=== PATIENT | female | born 1945 | race Caucasian/White ===

== ENCOUNTER → 2017-09-29 16:28 | Outpatient (CLI) | payer MEDICARE, OTHER, SELFPAY ==
[2017-09-29 17:50] LABS: Hematocrit 36.5 % (37-47); Hemoglobin 12.6 g/dl (12.0-15.0); Mean Corp Hgb Conc 34.5 g/gl (32-36); Mean Corpuscular Hgb 31.8 pg (27.0-32.0); Mean Corpuscular Volume 92.2 fL (81-99); Mean Platelet Vol. 10.7 fl (6.2-12.0); Platelet Count 154 K/mm3 (150-450); RBC Distribution Width CV 14.6 % (11.6-14.6); RBC Distribution Width SD 47.7 fl (35.1-43.9); Red Blood Count 3.96 M/mm3 (4.2-5.4); White Blood Count 5.2 K/mm3 (4.4-11.0)
[2017-09-29 17:52] LABS: Scan Indicated on CBC? Y/N NO
[2017-09-29 18:04] LABS: Anion Gap 7 (5-15); BUN 31 mg/dL (7-18); BUN/Creat Ratio 17.8 RATIO (10-20); Calcium,Total 9.6 mg/dL (8.5-10.1); Chloride 103 mmol/L (98-107); Creatinine, Serum 1.74 mg/dL (0.55-1.02); EST Glomerular Filtration Rate 30 mL/min (>60); Est Glom Filt Rate - Afr Amer 37 mL/min (>60); Glucose 130 mg/dL (74-106); Magnesium 1.9 mg/dL (1.6-2.6); Potassium 3.9 mmol/L (3.5-5.1); Sodium Level 142 mmol/L (136-145)
== END ==
PROVIDERS: Family Provider Family Medicine; PCP Family Medicine; Visit Provider Family Medicine
DX: I16.0 Hypertensive urgency (principal); R00.2 Palpitations
CPT/HCPCS: 36415; 80048; 83735; 85027

== ENCOUNTER → 2017-10-06 10:53 | Outpatient (CLI) | payer MEDICARE, OTHER, SELFPAY ==
[2017-10-07 08:08] LABS: Potassium 4.8 mmol/L (3.5-5.1)
== END ==
PROVIDERS: Family Provider Family Medicine; PCP Family Medicine; Visit Provider Family Medicine
DX: N18.9 Chronic kidney disease, unspecified (principal)
CPT/HCPCS: 36415; 84132

== ENCOUNTER → 2017-11-21 14:38 | Outpatient (CLI) | payer MEDICARE, OTHER, SELFPAY ==
[2017-11-21 15:53] LABS: Anion Gap 7 (5-15); BUN 44 mg/dL (7-18); BUN/Creat Ratio 19.9 RATIO (10-20); Calcium,Total 8.9 mg/dL (8.5-10.1); Chloride 104 mmol/L (98-107); Creatinine, Serum 2.21 mg/dL (0.55-1.02); EST Glomerular Filtration Rate 23 mL/min (>60); Est Glom Filt Rate - Afr Amer 28 mL/min (>60); Glucose 216 mg/dL (74-106); Potassium 4.5 mmol/L (3.5-5.1); Sodium Level 140 mmol/L (136-145)
== END ==
PROVIDERS: Family Provider Family Medicine; PCP Family Medicine; Visit Provider Family Medicine
DX: N18.9 Chronic kidney disease, unspecified (principal)
CPT/HCPCS: 36415; 80048

== ENCOUNTER → 2017-11-28 15:19 | Outpatient (CLI) | payer MEDICARE, OTHER, SELFPAY ==
[2017-11-28 17:33] LABS: Anion Gap 5 (5-15); BUN 36 mg/dL (7-18); BUN/Creat Ratio 20.1 RATIO (10-20); Calcium,Total 9.4 mg/dL (8.5-10.1); Chloride 103 mmol/L (98-107); Creatinine, Serum 1.79 mg/dL (0.55-1.02); EST Glomerular Filtration Rate 29 mL/min (>60); Est Glom Filt Rate - Afr Amer 36 mL/min (>60); Glucose 229 mg/dL (74-106); Potassium 4.4 mmol/L (3.5-5.1); Sodium Level 138 mmol/L (136-145)
== END ==
PROVIDERS: Family Provider Family Medicine; PCP Family Medicine; Visit Provider Family Medicine
DX: I10 Essential (primary) hypertension (principal)
CPT/HCPCS: 36415; 80048

== ENCOUNTER → 2017-12-07 11:26 | Outpatient (CLI) | payer MEDICARE, OTHER, SELFPAY ==
[2017-12-07 14:23] LABS: Anion Gap 7 (5-15); BUN 30 mg/dL (7-18); BUN/Creat Ratio 17.3 RATIO (10-20); Calcium,Total 9.4 mg/dL (8.5-10.1); Chloride 104 mmol/L (98-107); Creatinine, Serum 1.73 mg/dL (0.55-1.02); EST Glomerular Filtration Rate 31 mL/min (>60); Est Glom Filt Rate - Afr Amer 37 mL/min (>60); Glucose 176 mg/dL (74-106); Potassium 4.2 mmol/L (3.5-5.1); Sodium Level 141 mmol/L (136-145)
== END ==
PROVIDERS: Family Provider Family Medicine; PCP Family Medicine; Visit Provider Family Medicine
DX: I10 Essential (primary) hypertension (principal)
CPT/HCPCS: 36415; 80048

== ENCOUNTER → 2018-01-02 13:52 | Outpatient (CLI) | payer MEDICARE, OTHER, SELFPAY ==
[2018-01-02 15:47] LABS: Anion Gap 9 (5-15); BUN 25 mg/dL (7-18); BUN/Creat Ratio 17.1 RATIO (10-20); Calcium,Total 9.3 mg/dL (8.5-10.1); Chloride 104 mmol/L (98-107); Creatinine, Serum 1.46 mg/dL (0.55-1.02); EST Glomerular Filtration Rate 37 mL/min (>60); Est Glom Filt Rate - Afr Amer 45 mL/min (>60); Glucose 115 mg/dL (74-106); Potassium 4.1 mmol/L (3.5-5.1); Sodium Level 141 mmol/L (136-145)
== END ==
PROVIDERS: Family Provider Family Medicine; PCP Family Medicine; Visit Provider Family Medicine
DX: I10 Essential (primary) hypertension (principal)
CPT/HCPCS: 36415; 80048

== ENCOUNTER → 2018-05-17 16:50 | Outpatient (CLI) | payer MEDICARE, OTHER, SELFPAY ==
[2018-05-17 17:58] LABS: ALB/GLOB Ratio 0.8 RATIO (0.9-2.4); AST(SGOT) 23 U/L (15-37); Alanine Aminotransfer ALT/SGPT 30 U/L (13-56); Albumin, Serum 3.6 g/dL (3.2-5.0); Alkaline Phosphatase 55 U/L (45-117); Anion Gap 10 (5-15); BUN 36 mg/dL (7-18); BUN/Creat Ratio 19.4 RATIO (10-20); Calcium,Total 9.5 mg/dL (8.5-10.1); Chloride 103 mmol/L (98-107); Creatinine, Serum 1.86 mg/dL (0.55-1.02); EST Glomerular Filtration Rate 28 mL/min (>60); Est Glom Filt Rate - Afr Amer 34 mL/min (>60); Globulin 4.4 g/dL (2.2-4.2); Glucose 200 mg/dL (74-106); Potassium 4.2 mmol/L (3.5-5.1); Sodium Level 140 mmol/L (136-145); Thyroid Stim Hormone (TSH) 0.25 uIU/mL (0.358-3.74)
== END ==
PROVIDERS: Family Provider Family Medicine; PCP Family Medicine; Visit Provider Family Medicine
DX: E11.9 Type 2 diabetes mellitus without complications (principal)
CPT/HCPCS: 36415; 80053; 84443

== ENCOUNTER → 2018-05-26 10:58 | Outpatient (CLI) | payer MEDICARE, OTHER, SELFPAY ==
[2018-05-26 12:56] LABS: Anion Gap 10 (5-15); BUN 26 mg/dL (7-18); BUN/Creat Ratio 16.5 RATIO (10-20); Calcium,Total 9.6 mg/dL (8.5-10.1); Chloride 102 mmol/L (98-107); Creatinine, Serum 1.58 mg/dL (0.55-1.02); EST Glomerular Filtration Rate 34 mL/min (>60); Est Glom Filt Rate - Afr Amer 41 mL/min (>60); Glucose 182 mg/dL (74-106); Potassium 4.3 mmol/L (3.5-5.1); Sodium Level 140 mmol/L (136-145)
== END ==
PROVIDERS: Family Provider Family Medicine; PCP Family Medicine; Visit Provider Family Medicine
DX: N18.9 Chronic kidney disease, unspecified (principal)
CPT/HCPCS: 36415; 80048

== ENCOUNTER → 2018-08-17 12:36 | Outpatient (CLI) | payer MEDICARE, OTHER, SELFPAY ==
[2018-08-17 14:56] LABS: Anion Gap 12 (5-15); BUN 28 mg/dL (7-18); BUN/Creat Ratio 16.3 RATIO (10-20); Calcium,Total 9.1 mg/dL (8.5-10.1); Chloride 105 mmol/L (98-107); Creatinine, Serum 1.72 mg/dL (0.55-1.02); EST Glomerular Filtration Rate 31 mL/min (>60); Est Glom Filt Rate - Afr Amer 37 mL/min (>60); Glucose 284 mg/dL (74-106); Potassium 4.3 mmol/L (3.5-5.1); Sodium Level 142 mmol/L (136-145); T4 Free Direct 1.28 ng/dL (0.76-1.46); Thyroid Stim Hormone (TSH) 0.68 uIU/mL (0.358-3.74)
== END ==
PROVIDERS: Family Provider Family Medicine; PCP Family Medicine; Referring Provider Family Medicine; Visit Provider Family Medicine
DX: E03.9 Hypothyroidism, unspecified (principal); N18.9 Chronic kidney disease, unspecified
CPT/HCPCS: 36415; 80048; 84439; 84443

== ENCOUNTER → 2018-11-21 15:49 | Outpatient (CLI) | payer MEDICARE, OTHER, SELFPAY ==
[2018-11-21 17:48] LABS: Erythrocyte Sedimentation Rate 17 mm/hr (0-30)
[2018-11-21 17:51] LABS: Anion Gap 8 (5-15); BUN 36 mg/dL (7-18); BUN/Creat Ratio 19.9 RATIO (10-20); Calcium,Total 9.1 mg/dL (8.5-10.1); Chloride 104 mmol/L (98-107); Creatinine, Serum 1.81 mg/dL (0.55-1.02); EST Glomerular Filtration Rate 29 mL/min (>60); Est Glom Filt Rate - Afr Amer 35 mL/min (>60); Glucose 121 mg/dL (74-106); Potassium 4.5 mmol/L (3.5-5.1); Sodium Level 141 mmol/L (136-145)
== END ==
PROVIDERS: Family Provider Family Medicine; PCP Family Medicine; Referring Provider Family Medicine; Visit Provider Family Medicine
DX: N18.9 Chronic kidney disease, unspecified (principal); M79.10 Myalgia, unspecified site
CPT/HCPCS: 36415; 80048; 85652

== ENCOUNTER → 2018-12-04 12:03 | Outpatient (CLI) | payer MEDICARE, OTHER, SELFPAY ==
[2018-12-04 14:33] LABS: Anion Gap 5 (5-15); BUN 26 mg/dL (7-18); BUN/Creat Ratio 18.3 RATIO (10-20); Calcium,Total 8.7 mg/dL (8.5-10.1); Chloride 108 mmol/L (98-107); Creatinine, Serum 1.42 mg/dL (0.55-1.02); EST Glomerular Filtration Rate 38 mL/min (>60); Est Glom Filt Rate - Afr Amer 46 mL/min (>60); Glucose 151 mg/dL (74-106); Potassium 4.2 mmol/L (3.5-5.1); Sodium Level 141 mmol/L (136-145)
== END ==
PROVIDERS: Family Provider Family Medicine; PCP Family Medicine; Visit Provider Family Medicine
DX: N18.9 Chronic kidney disease, unspecified (principal)
CPT/HCPCS: 36415; 80048

== ENCOUNTER → 2018-12-12 16:16 | Outpatient (CLI) | payer MEDICARE, OTHER, SELFPAY ==
[2018-12-12 18:21] LABS: Anion Gap 7 (5-15); BUN 35 mg/dL (7-18); BUN/Creat Ratio 18.8 RATIO (10-20); Calcium,Total 8.6 mg/dL (8.5-10.1); Chloride 104 mmol/L (98-107); Creatinine, Serum 1.86 mg/dL (0.55-1.02); EST Glomerular Filtration Rate 28 mL/min (>60); Est Glom Filt Rate - Afr Amer 34 mL/min (>60); Glucose 175 mg/dL (74-106); Potassium 4.7 mmol/L (3.5-5.1); Sodium Level 143 mmol/L (136-145)
== END ==
PROVIDERS: Family Provider Family Medicine; PCP Family Medicine; Referring Provider Family Medicine; Visit Provider Family Medicine
DX: I10 Essential (primary) hypertension (principal)
CPT/HCPCS: 36415; 80048

== ENCOUNTER → 2019-01-01 14:49 | Outpatient (CLI) | payer MEDICARE, OTHER, SELFPAY ==
[2019-01-01 17:48] LABS: Anion Gap 5 (5-15); BUN 24 mg/dL (7-18); BUN/Creat Ratio 16.7 RATIO (10-20); Calcium,Total 9.2 mg/dL (8.5-10.1); Chloride 106 mmol/L (98-107); Creatinine, Serum 1.44 mg/dL (0.55-1.02); EST Glomerular Filtration Rate 38 mL/min (>60); Est Glom Filt Rate - Afr Amer 46 mL/min (>60); Glucose 127 mg/dL (74-106); Potassium 4.5 mmol/L (3.5-5.1); Sodium Level 141 mmol/L (136-145)
== END ==
PROVIDERS: Family Provider Family Medicine; PCP Family Medicine; Visit Provider Family Medicine
DX: I10 Essential (primary) hypertension (principal)
CPT/HCPCS: 80048

== ENCOUNTER → 2019-02-20 15:09 | Outpatient (CLI) | payer MEDICARE, OTHER, SELFPAY ==
[2019-02-20 17:42] LABS: Hematocrit 35.2 % (37-47); Hemoglobin 11.7 g/dl (12.0-15.0); Mean Corp Hgb Conc 33.2 g/gl (32-36); Mean Corpuscular Hgb 29.5 pg (27.0-32.0); Mean Corpuscular Volume 88.7 fL (81-99); Mean Platelet Vol. 11.3 fl (6.2-12.0); Platelet Count 155 K/mm3 (150-450); RBC Distribution Width SD 48.1 fl (35.1-43.9); Red Blood Count 3.97 M/mm3 (4.2-5.4); White Blood Count 4.4 K/mm3 (4.4-11.0)
[2019-02-20 17:44] LABS: Scan Indicated on CBC? Y/N NO
[2019-02-20 18:12] LABS: ALB/GLOB Ratio 0.8 RATIO (0.9-2.4); AST(SGOT) 23 U/L (15-37); Alanine Aminotransfer ALT/SGPT 26 U/L (13-56); Albumin, Serum 3.4 g/dL (3.2-5.0); Alkaline Phosphatase 63 U/L (45-117); Anion Gap 6 (5-15); BUN 35 mg/dL (7-18); Chloride 107 mmol/L (98-107); Creatinine, Serum 1.84 mg/dL (0.55-1.02); EST Glomerular Filtration Rate 28 mL/min (>60); Est Glom Filt Rate - Afr Amer 34 mL/min (>60); Glucose 82 mg/dL (74-106); Potassium 4.8 mmol/L (3.5-5.1); Protein, Total 7.4 g/dL (6.4-8.2); Sodium Level 143 mmol/L (136-145); Thyroid Stim Hormone (TSH) 0.95 uIU/mL (0.358-3.74)
[2019-02-20 18:50] LABS: BNP,B-Type NATRIURETIC PEPTIDE 322.8 pg/mL (0-100)
== END ==
PROVIDERS: Family Provider Family Medicine; PCP Family Medicine; Visit Provider Family Medicine
DX: E03.9 Hypothyroidism, unspecified (principal); R60.0 Localized edema
CPT/HCPCS: 36415; 80053; 83880; 84443; 85027

== ENCOUNTER → 2019-02-26 15:33 | Outpatient (CLI) | payer MEDICARE, OTHER, SELFPAY ==
[2019-02-26 18:05] LABS: Anion Gap 5 (5-15); BUN 35 mg/dL (7-18); BUN/Creat Ratio 21.2 RATIO (10-20); Calcium,Total 8.9 mg/dL (8.5-10.1); Chloride 103 mmol/L (98-107); Creatinine, Serum 1.65 mg/dL (0.55-1.02); EST Glomerular Filtration Rate 32 mL/min (>60); Est Glom Filt Rate - Afr Amer 39 mL/min (>60); Glucose 138 mg/dL (74-106); Potassium 4.5 mmol/L (3.5-5.1); Sodium Level 137 mmol/L (136-145)
== END ==
PROVIDERS: Family Provider Family Medicine; PCP Family Medicine; Visit Provider Family Medicine
DX: N18.9 Chronic kidney disease, unspecified (principal)
CPT/HCPCS: 36415; 80048

== ENCOUNTER → 2019-05-22 15:45 | Outpatient (CLI) | payer MEDICARE, OTHER, SELFPAY ==
[2019-05-22 18:02] LABS: Anion Gap 5 (5-15); BUN 26 mg/dL (7-18); BUN/Creat Ratio 14.5 RATIO (10-20); Calcium,Total 9.2 mg/dL (8.5-10.1); Chloride 108 mmol/L (98-107); Creatinine, Serum 1.79 mg/dL (0.55-1.02); EST Glomerular Filtration Rate 29 mL/min (>60); Est Glom Filt Rate - Afr Amer 35 mL/min (>60); Glucose 193 mg/dL (74-106); Potassium 4.5 mmol/L (3.5-5.1); Sodium Level 140 mmol/L (136-145)
[2019-05-22 18:29] LABS: BNP,B-Type NATRIURETIC PEPTIDE 185.7 pg/mL (0-100)
== END ==
PROVIDERS: Family Provider Family Medicine; PCP Family Medicine; Visit Provider Family Medicine
DX: E11.9 Type 2 diabetes mellitus without complications (principal); R60.0 Localized edema
CPT/HCPCS: 36415; 80048; 83880

== ENCOUNTER → 2019-08-28 15:23 | Outpatient (CLI) | payer MEDICARE, OTHER, SELFPAY ==
[2019-08-28 18:24] LABS: Vitamin D,25 Hydroxy 69.7 ng/mL (29.95-100.01)
[2019-08-28 18:34] LABS: ALB/GLOB Ratio 0.8 RATIO (0.9-2.4); AST(SGOT) 29 U/L (15-37); Alanine Aminotransfer ALT/SGPT 32 U/L (13-56); Albumin, Serum 3.6 g/dL (3.2-5.0); Alkaline Phosphatase 61 U/L (45-117); Anion Gap 4 (5-15); BUN 29 mg/dL (7-18); BUN/Creat Ratio 15.1 RATIO (10-20); Calcium,Total 9.5 mg/dL (8.5-10.1); Chloride 109 mmol/L (98-107); Creatinine, Serum 1.92 mg/dL (0.55-1.02); EST Glomerular Filtration Rate 27 mL/min (>60); Est Glom Filt Rate - Afr Amer 33 mL/min (>60); Globulin 4.5 g/dL (2.2-4.2); Glucose 119 mg/dL (74-106); Iron 93 ug/dL (50-170); Potassium 4.1 mmol/L (3.5-5.1); Protein, Total 8.1 g/dL (6.4-8.2); Sodium Level 142 mmol/L (136-145); T4 Free Direct 1.32 ng/dL (0.76-1.46); Thyroid Stim Hormone (TSH) 0.88 uIU/mL (0.358-3.74)
== END ==
PROVIDERS: Family Provider Family Medicine; PCP Family Medicine; Referring Provider Family Medicine; Visit Provider Family Medicine
DX: I12.9 Hypertensive chronic kidney disease with stage 1 through stage 4 chronic kidney disease, or unspecified chronic kidney disease (principal); N18.9 Chronic kidney disease, unspecified; E03.9 Hypothyroidism, unspecified; E55.9 Vitamin D deficiency, unspecified
CPT/HCPCS: 36415; 80053; 82306; 83540; 84439; 84443

== ENCOUNTER → 2020-06-30 12:03 | Outpatient (CLI) | payer MEDICARE, OTHER, SELFPAY ==
[2020-06-30 15:42] LABS: Hemoglobin 12.9 g/dL (12.0-15.0); Mean Corp Hgb Conc 33.1 g/dL (32-36); Mean Corpuscular Hgb 28.8 pg (27.0-32.0); Mean Corpuscular Volume 87.1 fL (81-99); Platelet Count 186 K/mm3 (150-450); RBC Distribution Width CV 15.5 % (11.6-14.6); RBC Distribution Width SD 49.2 fl (35.1-43.9); Red Blood Count 4.48 M/mm3 (4.2-5.4); White Blood Count 4.6 K/mm3 (4.4-11.0)
[2020-06-30 16:06] LABS: Vitamin D,25 Hydroxy 34.5 ng/mL
[2020-06-30 16:18] LABS: Anion Gap 7 (5-15); BUN 26 mg/dL (7-18); BUN/Creat Ratio 19.1 RATIO (10-20); Calcium,Total 8.8 mg/dL (8.5-10.1); Chloride 104 mmol/L (98-107); Creatinine, Serum 1.36 mg/dL (0.55-1.02); EST Glomerular Filtration Rate 40 mL/min (>60); Est Glom Filt Rate - Afr Amer 49 mL/min (>60); Glucose 211 mg/dL (74-106); Potassium 4.1 mmol/L (3.5-5.1); Sodium Level 139 mmol/L (136-145)
== END ==
LOC: LAB 06-28 15:41 → MTLAB 12:04
PROVIDERS: PCP Family Medicine; Referring Provider Family Medicine; Visit Provider Family Medicine
DX: E11.22 Type 2 diabetes mellitus with diabetic chronic kidney disease (principal); N18.9 Chronic kidney disease, unspecified
CPT/HCPCS: 36415; 80048; 82306; 85027

== ENCOUNTER → 2020-09-29 14:16 | Outpatient (CLI) | payer MEDICARE, OTHER, SELFPAY ==
[2020-09-29 17:58] LABS: ALB/GLOB Ratio 0.8 RATIO (0.9-2.4); AST(SGOT) 33 U/L (15-37); Alanine Aminotransfer ALT/SGPT 30 U/L (13-56); Albumin, Serum 3.5 g/dL (3.2-5.0); Alkaline Phosphatase 63 U/L (45-117); Anion Gap 7 (5-15); BUN 28 mg/dL (7-18); BUN/Creat Ratio 18.9 RATIO (10-20); Calcium,Total 9.2 mg/dL (8.5-10.1); Chloride 103 mmol/L (98-107); Creatinine, Serum 1.48 mg/dL (0.55-1.02); EST Glomerular Filtration Rate 36 mL/min (>60); Est Glom Filt Rate - Afr Amer 44 mL/min (>60); Globulin 4.6 g/dL (2.2-4.2); Glucose 116 mg/dL (74-106); Potassium 3.8 mmol/L (3.5-5.1); Protein, Total 8.1 g/dL (6.4-8.2); Sodium Level 139 mmol/L (136-145); Thyroid Stim Hormone (TSH) 0.49 uIU/mL (0.358-3.74)
[2020-09-29 18:00] LABS: BNP,B-Type NATRIURETIC PEPTIDE 333.9 pg/mL (0-100)
== END ==
PROVIDERS: PCP Family Medicine; Visit Provider Family Medicine
DX: E03.9 Hypothyroidism, unspecified (principal); E11.9 Type 2 diabetes mellitus without complications; R60.0 Localized edema
CPT/HCPCS: 36415; 80053; 83880; 84443

== ENCOUNTER → 2020-10-27 15:25 | Outpatient (CLI) | payer MEDICARE, OTHER, SELFPAY ==
[2020-10-27 18:00] LABS: Anion Gap 6 (5-15); BUN 44 mg/dL (7-18); BUN/Creat Ratio 21.6 RATIO (10-20); Calcium,Total 9.8 mg/dL (8.5-10.1); Chloride 103 mmol/L (98-107); Creatinine, Serum 2.04 mg/dL (0.55-1.02); EST Glomerular Filtration Rate 25 mL/min (>60); Est Glom Filt Rate - Afr Amer 30 mL/min (>60); Glucose 199 mg/dL (74-106); Potassium 4.3 mmol/L (3.5-5.1); Sodium Level 139 mmol/L (136-145)
[2020-10-27 18:04] LABS: BNP,B-Type NATRIURETIC PEPTIDE 167.5 pg/mL (0-100)
== END ==
PROVIDERS: PCP Family Medicine; Visit Provider Family Medicine
DX: I10 Essential (primary) hypertension (principal)
CPT/HCPCS: 36415; 80048; 83880

== ENCOUNTER → 2020-11-04 15:45 | Outpatient (CLI) | payer MEDICARE, OTHER, SELFPAY ==
[2020-11-04 18:41] LABS: Anion Gap 8 (5-15); BUN 41 mg/dL (7-18); BUN/Creat Ratio 20.3 RATIO (10-20); Calcium,Total 9.6 mg/dL (8.5-10.1); Chloride 102 mmol/L (98-107); Creatinine, Serum 2.02 mg/dL (0.55-1.02); EST Glomerular Filtration Rate 25 mL/min (>60); Est Glom Filt Rate - Afr Amer 31 mL/min (>60); Glucose 222 mg/dL (74-106); Potassium 4.4 mmol/L (3.5-5.1); Sodium Level 139 mmol/L (136-145)
== END ==
PROVIDERS: PCP Family Medicine; Visit Provider Family Medicine
DX: N18.9 Chronic kidney disease, unspecified (principal)
CPT/HCPCS: 36415; 80048

== ENCOUNTER → 2020-12-11 08:55 | Outpatient (CLI) | payer MEDICARE, OTHER, SELFPAY ==
--- NOTE | 2020-12-11 08:58 | RDU_ITS ---
Reason For Study: renal insufficiency Right Renal Artery Left Renal Artery Right renal artery proximal Left renal artery proximal PSV/EDV 141.5/22.5 PSV/EDV. 140.9/18.0 . Right renal artery mid 177.5/16.4 Left renal artery mid 149.7/18.0 PSV/EDV. PSV/EDV . Right renal artery distal Left renal artery distal 130.0/18.0 177.5/16.4 PSV/EDV. PSV/EDV. Right Renal Parenchyma Left Renal Parenchyma Upper Pole Medula 49.3/9.8 PSV/EDV. Left upper pole medulla 43.0/9.8 Right upper pole medulla EDR .2 . PSV/EDV . Right upper pole medulla R.I. .8 . Left upper pole medulla EDR .23 . Upper Jake Cortx 31.9/11.4 PSV/EDV. Left upper pole medulla R.I. .77 . Right upper pole cortex EDR .36 . UP Cortex 36.5/6.7 PSV/EDV. Right upper pole cortex R.I. .64 . Left upper pole cortex EDR .18 . Right lower Pole medulla 27.2/11.4 Left upper pole cortex R.I. .82 . PSV/EDV . Left lower Pole medulla 40.4/8.0 Right lower pole medulla EDR .42 . PSV/EDV . Right lower pole medulla R.I. .58 . Left lower pole medulla EDR .2 . Lower Pole Cortex 38.2/9.8 PSV/EDV. Left lower pole medulla R.I. .8 . Right lower pole cortex EDR .26 . Lower Pole Cortx 23.3/5.7 PSV/EDV. Right lower pole cortex R.I. .74 . Left lower pole cortex EDR .25 . Right Renal Hilar Left lower pole cortex R.I. .75 . Right Hilar avg 55.6/6.6 PSV/EDV. Left Renal Hilar Right hilar acceleration time 60 LT Hilar avg 46.3/9.0 PSV/EDV . m/sec. Left hilar acceleration time 70 Right Renal Dimensions m/sec. Right kidney size 10.7 cm . Left Renal Dimensions Right cortical dimension 1.46 cm . Left kidney size 10.7 cm . Left cortical dimension 1.12 cm . Aorta Proximal abdominal aorta 1.46 x 1.65 cm . Proximal abdominal aorta peak systolic velocity is 193.5 cm/sec . Distal abdominal aorta 1.15 x 1.09 cm . Distal abdominal aorta peak systolic velocity is 123.9 cm/sec . Bilateral normal renal veins. Difficult study due to body habitus and bowel gas. VL/Renal Artery Duplex Ultrasound Interpretation Summary Maximal abdominal aortic diameter approximately at 1.46 x 1.65 cm. Velocities a re elevated 293.5 cm/s flow which invalidates renal artery to aortic ratio. Less than 60% stenosis bilateral renal arteries Right renal length 10.7 cm Left renal length 10.7 cm Examination was noted to be difficult secondary to body habitus and bowel gas Ordering Physician: Orion Lacy Performed By: Ar Ellis RVT
== END ==
PROVIDERS: PCP Family Medicine; Referring Provider Family Medicine; Visit Provider Family Medicine
DX: N18.9 Chronic kidney disease, unspecified (principal)
CPT/HCPCS: 93975

== ENCOUNTER → 2020-12-29 15:07 | Outpatient (CLI) | payer MEDICARE, OTHER, SELFPAY ==
[2020-12-29 18:37] LABS: Anion Gap 5 (5-15); BUN 53 mg/dL (7-18); BUN/Creat Ratio 26.9 RATIO (10-20); Calcium,Total 9.1 mg/dL (8.5-10.1); Chloride 108 mmol/L (98-107); Creatinine, Serum 1.97 mg/dL (0.55-1.02); EST Glomerular Filtration Rate 26 mL/min (>60); Est Glom Filt Rate - Afr Amer 32 mL/min (>60); Glucose 147 mg/dL (74-106); Potassium 4.1 mmol/L (3.5-5.1); Sodium Level 142 mmol/L (136-145)
== END ==
PROVIDERS: PCP Family Medicine; Visit Provider Family Medicine
DX: N18.30 Chronic kidney disease, stage 3 unspecified (principal)
CPT/HCPCS: 36415; 80048

== ENCOUNTER → 2021-01-13 15:01 | Outpatient (CLI) | payer MEDICARE, OTHER, SELFPAY ==
[2021-01-13 16:44] LABS: Creatinine, Urine (random) < 13.00 mg/dL (NO RANGE EST.); Microalbumin,Random Urine 45.7 mg/L (NO RANGE EST.)
== END ==
PROVIDERS: PCP Family Medicine; Visit Provider Internal Medicine Nephrology
DX: E11.22 Type 2 diabetes mellitus with diabetic chronic kidney disease (principal)
CPT/HCPCS: 82043; 82570

== ENCOUNTER → 2021-01-16 12:32 | Outpatient (CLI) | payer MEDICARE, OTHER, SELFPAY ==
--- NOTE | 2021-01-16 12:34 | ECHOCS_ITS ---
Reason For Study: SOB Procedure This was a 2D Doppler, Color Flow transthoracic echocardiogram. The study was technically difficult. Contrast injection was performed. Exam performed in department. Left Ventricle Normal LV size. Left ventricular systolic function is normal. The estimated ejection fraction is 65 %. There is evidence of diastolic dysfunction. No regional wall motion abnormalities noted. Right Ventricle Normal RV size. Normal systolic function. Atria The left atrium is severely enlarged. The right atrium is mildly enlarged. No doppler evidence for ASD. Mitral Valve There is moderate to severe mitral annular calcification. Extension of the mitral annular calcification on the base of the posterior mitral valve leaflet. The mitral valve chordae are thickened and/or calcified. Mild-Moderate (1-2+) mitral valve insufficiency. Tricuspid Valve Normal tricuspid valve. Mild tricuspid valve insufficiency. Right ventricular systolic pressure estimated to be 54 mmHg. Aortic Valve Trisinus/trileaflet aortic valve. Mild diffuse aortic valve thickening. Pulmonic Valve The pulmonic valve is not well visualized. Trivial pulmonic valve insufficiency. Great Vessels Normal sized aortic root. Pericardium/Pleural No pericardial effusion. MMode/2D Measurements & Calculations LVIDd: 4.6 cm IVSd: 1.3 cm Ao root diam: 3.2 cm LVIDs: 2.7 cm LVPWd: 1.2 cm LA dimension: 4.8 cm RVDd: 3.4 cm FS: 40.6 % LAV(MOD-bp): 94.6 ml LA A4 area: 25.9 cm2 RA A4 area: 21.3 cm2 LAV(MOD-bp) Indexed: 50.9 ml/m2 LAV(MOD-sp2): 94.6 ml LAV(MOD-sp4): 87.6 ml Time Measurements MV dec time: 0.27 sec Doppler Measurements & Calculations MV E max nima: 142.4 cm/sec Lat Peak E' Nima: 8.5 cm/sec MV V2 max: 217.6 cm/sec MV A max nima: 165.0 cm/sec E/E' lat: 16.7 MV max P.9 mmHg MV E/A: 0.86 MV V2 mean: 139.2 cm/sec MV mean P.9 mmHg MV V2 VTI: 68.2 cm MV P1/2t max nima: 204.2 cm/sec Ao V2 max: 146.6 cm/sec LV V1 max: 142.9 cm/sec MV P1/2t: 86.2 msec Ao max P.6 mmHg LV V1 max P.2 mmHg MV dec slope: 693.4 cm/sec2 MVA(P1/2t): 2.6 cm2 PA V2 max: 110.7 cm/sec TR max nima: 337.5 cm/sec TR max P.6 mmHg ECHO/Echo Complete W/ Contrast Interpretation Summary The study was technically difficult. Contrast injection was performed. Left ventricular systolic function is normal. The estimated ejection fraction is 65 %. The left atrium is severely enlarged. The right atrium is mildly enlarged. There is moderate to severe mitral annular calcification. Extension of the mitral annular calcification on the base of the posterior mitr al valve leaflet. The mitral valve chordae are thickened and/or calcified. Mild-Moderate (1-2+) mitral valve insufficiency. Mild tricuspid valve insufficiency. Mild diffuse aortic valve thickening. Trivial pulmonic valve insufficiency. Right ventricular systolic pressure estimated to be 54 mmHg c/w pulmonary hyper tension. There is evidence of diastolic dysfunction. Ordering Physician: Marlene Olivares Referring Physician: Jose Lacy Performed By: Vitaliy Fong RCS
== END ==
PROVIDERS: PCP Family Medicine; Referring Provider Internal Medicine Nephrology; Visit Provider Internal Medicine Nephrology
DX: R06.02 Shortness of breath (principal); N17.9 Acute kidney failure, unspecified
CPT/HCPCS: 93306; Q9957; A4216; C8929; J3490

== ENCOUNTER → 2021-03-09 13:24 | Outpatient (CLI) | payer MEDICARE, OTHER, SELFPAY ==
[2021-03-09 14:20] LABS: Microalbumin,Random Urine 47.4 mg/L (NO RANGE EST.)
[2021-03-09 14:27] LABS: BNP,B-Type NATRIURETIC PEPTIDE 695.4 pg/mL (0-100)
[2021-03-09 14:37] LABS: Albumin, Serum 3.7 g/dL (3.2-5.0); BUN 36 mg/dL (7-18); BUN/Creat Ratio 21.6 RATIO (10-20); Calcium,Total 9.1 mg/dL (8.5-10.1); Chloride 107 mmol/L (98-107); Cholesterol 154 mg/dL (200); Creatinine, Serum 1.67 mg/dL (0.55-1.02); EST Glomerular Filtration Rate 32 mL/min (>60); Est Glom Filt Rate - Afr Amer 38 mL/min (>60); Glucose 118 mg/dL (74-106); High Density Lipoprotein 52 mg/dL; Phosphorus 3.3 mg/dL (2.5-4.9); Potassium 3.8 mmol/L (3.5-5.1); Sodium Level 140 mmol/L (136-145); Thyroid Stim Hormone (TSH) 0.57 uIU/mL (0.358-3.74); Triglycerides 51 mg/dL; Very Low Density Lipoprotein 10 mg/dL (5-40)
== END ==
PROVIDERS: PCP Family Medicine; Referring Provider Internal Medicine Nephrology; Visit Provider Internal Medicine Nephrology
DX: N17.9 Acute kidney failure, unspecified (principal); E03.9 Hypothyroidism, unspecified; R60.0 Localized edema; E11.59 Type 2 diabetes mellitus with other circulatory complications
CPT/HCPCS: 80061; 80069; 82043; 83880; 84443

== ENCOUNTER → 2021-05-26 14:37 | Outpatient (CLI) | payer MEDICARE, OTHER, SELFPAY ==
[2021-05-26 15:45] LABS: Albumin, Serum 3.4 g/dL (3.2-5.0); BUN 35 mg/dL (7-18); BUN/Creat Ratio 19.6 RATIO (10-20); Calcium,Total 9.6 mg/dL (8.5-10.1); Chloride 101 mmol/L (98-107); Creatinine, Serum 1.79 mg/dL (0.55-1.02); EST Glomerular Filtration Rate 29 mL/min (>60); Est Glom Filt Rate - Afr Amer 35 mL/min (>60); Glucose 220 mg/dL (74-106); Phosphorus 3.7 mg/dL (2.5-4.9); Potassium 3.8 mmol/L (3.5-5.1); Sodium Level 140 mmol/L (136-145)
== END ==
PROVIDERS: PCP Family Medicine; Referring Provider Internal Medicine Nephrology; Visit Provider Internal Medicine Nephrology
DX: N18.32 Chronic kidney disease, stage 3b (principal)
CPT/HCPCS: 36415; 80069

== ENCOUNTER 2021-09-11 14:47 | Outpatient (CLI) | payer MEDICARE, OTHER, SELFPAY ==
[2021-09-11 16:42] LABS: Albumin, Serum 3.1 g/dL (3.2-5.0); BUN 37 mg/dL (7-18); BUN/Creat Ratio 22.7 RATIO (10-20); Calcium,Total 9.2 mg/dL (8.5-10.1); Chloride 112 mmol/L (98-107); Creatinine, Serum 1.63 mg/dL (0.55-1.02); EST Glomerular Filtration Rate 32 mL/min (>60); Est Glom Filt Rate - Afr Amer 39 mL/min (>60); Glucose 73 mg/dL (74-106); Phosphorus 3.6 mg/dL (2.5-4.9); Potassium 4.5 mmol/L (3.5-5.1); Sodium Level 142 mmol/L (136-145)
[2021-09-11 17:21] LABS: Protein:Creat Ratio 288 mg/g CRE (0-200)
== END 2021-09-11 23:59 | disposition short-term general hospital (02) ==
LOC: LAB 14:48
PROVIDERS: PCP Family Medicine; Visit Provider Internal Medicine Nephrology
DX: I10 Essential (primary) hypertension (principal); N17.9 Acute kidney failure, unspecified; E11.22 Type 2 diabetes mellitus with diabetic chronic kidney disease; N18.9 Chronic kidney disease, unspecified
CPT/HCPCS: 36415; 80069; 82570; 84156

== ENCOUNTER → 2021-12-16 | Outpatient (CLI) | payer MEDICARE, OTHER, SELFPAY ==
[2021-12-16 15:46] LABS: Hematocrit 36.8 % (37-47); Hemoglobin 11.9 g/dL (12.0-15.0); Mean Corp Hgb Conc 32.3 g/dL (32-36); Mean Corpuscular Hgb 28.6 pg (27.0-32.0); Mean Corpuscular Volume 88.5 fL (81-99); Platelet Count 114 K/mm3 (150-450); RBC Distribution Width CV 17.9 % (11.6-14.6); Red Blood Count 4.16 M/mm3 (4.2-5.4); White Blood Count 4.1 K/mm3 (4.4-11.0)
[2021-12-16 16:10] LABS: Vitamin D,25 Hydroxy 81.7 ng/mL
[2021-12-16 16:16] LABS: Albumin, Serum 3.6 g/dL (3.2-5.0); BNP,B-Type NATRIURETIC PEPTIDE 636.8 pg/mL (0-100); BUN 42 mg/dL (7-18); BUN/Creat Ratio 23.9 RATIO (10-20); Calcium,Total 9.4 mg/dL (8.5-10.1); Chloride 106 mmol/L (98-107); Cholesterol 120 mg/dL (200); Creatinine, Serum 1.76 mg/dL (0.55-1.02); EST Glomerular Filtration Rate 30 mL/min (>60); Est Glom Filt Rate - Afr Amer 36 mL/min (>60); Glucose 85 mg/dL (74-106); High Density Lipoprotein 49 mg/dL; Phosphorus 3.8 mg/dL (2.5-4.9); Potassium 4.1 mmol/L (3.5-5.1); Sodium Level 140 mmol/L (136-145); Thyroid Stim Hormone (TSH) 0.53 uIU/mL (0.358-3.74); Triglycerides 60 mg/dL; Very Low Density Lipoprotein 12 mg/dL (5-40)
== END | disposition home or self-care (01) ==
LOC: POLAB3 13:54
PROVIDERS: PCP Family Medicine; Visit Provider Internal Medicine Nephrology
DX: E11.22 Type 2 diabetes mellitus with diabetic chronic kidney disease (principal); I27.20 Pulmonary hypertension, unspecified; N18.32 Chronic kidney disease, stage 3b; E55.9 Vitamin D deficiency, unspecified
CPT/HCPCS: 80061; 80069; 82306; 83880; 84443; 85027

== ENCOUNTER 2022-04-01 17:41 | Inpatient (IN) | payer MEDICARE, OTHER, SELFPAY ==
[2022-04-01] VITALS (10 sets, daily range): BP systolic 159–226; BP diastolic 50–105; PULSE 60–94; RESP 16–30; TEMP 36.3–37.6; O2SAT 96–98; BMI 38.0; BMI 38.3
--- NOTE | 2022-04-01 18:03 | EKG12_ITS ---
Test Reason : SOB Blood Pressure : / mmHG Vent. Rate : 094 BPM Atrial Rate : 000 BPM P-R Int : 000 ms QRS Dur : 088 ms QT Int : 342 ms P-R-T Axes : 000 042 009 degrees QTc Int : 427 ms Atrial fibrillation Nonspecific ST abnormality Abnormal ECG Confirmed by GIL IBRAHIM, MARYAN ([id number]), news assignment editor KATYA MEAD ([id number]) on 04/02/2022 9:49:09 AM Referred By: ÁNGEL Confirmed By:MARYAN CORDERO MD
--- NOTE | 2022-04-01 18:10 | EDS_ITS ---
HPI History of Present Illness Chief Complaint: Shortness of Breath Informant: patient and family Onset/Context/Timing Onset: Today Context: gradual Timing: Continuous Current Severity: Moderate Maximum Severity: Moderate Worsened by: Nothing Relieved by: Nothing Associated Symptoms cough; Negative for fever, chills or sweats Chest Pain: Positive for Dull and Aching Narrative Narrative: 76-year-old female history of CHF, chronic kidney disease Mobitz type II and third-degree heart block with pending possible pacemaker, diabetes and today had new onset A. fib. Basically has not felt well last several days short of breath for the last 3 days. Today was in the over short and damage clerk office diagnosed with A. fib and was sent to the emergency department. Last night she did have some left- sided chest discomfort. PE Risk Factors: Negative for Cancer, OCP + Smoking + > 35, Prior DVT or PE, Recent immobilization, Recent surgery or Recent travel Prior similar symptoms: No Recent Illness/Hospitalization: No PFSH PFSH Medical History (HFpEF) heart failure with preserved ejection fraction Calcification of mitral valve Chronic kidney disease (CKD) Essential hypertension Hypothyroidism Mobitz type 2 second degree atrioventricular block Obesity Secondary pulmonary arterial hypertension Type 2 diabetes mellitus Home Medications levothyroxine 100 mcg tablet (Levoxyl) 100 mcg PO DAILY 09/18/13 [History Last Taken 03/31/22] calcium carb 300 mg-D3 800 unit-mag ox 25 mg-certified flex endoscope reprocessor 0.5 mg-jodi-Zn tablet (Caltrate + D3 Plus Minerals) 1 tab PO BID 03/22/22 [History Last Taken 04/01/22] hydralazine 50 mg tablet 50 mg PO TID 03/22/22 [History Last Taken 04/01/22] insulin glargine 100 unit/mL (3 mL) subcutaneous pen (Lantus Solostar U-100 Insulin) 45 unit subcut DAILY 03/22/22 [History Last Taken 04/01/22] acetaminophen 650 mg tablet,extended release (Tylenol 8 Hour) 1,300 mg PO Q12H QHS 03/24/22 [History Last Taken 03/31/22] diphenhydramine HCl 25 mg capsule (Benadryl) 25 mg PO QHS PRN Allergy Symptoms 03/24/22 [History Last Taken Unknown] jjhxdjly-hpbtcts-lonp-lutein tablet 1 tab PO DAILY 03/24/22 [History Last Taken 04/01/22] amlodipine 10 mg tablet 10 mg PO DAILY BP 04/01/22 [History Last Taken 04/01/22] apixaban 2.5 mg tablet (Eliquis) 2.5 mg PO BID #60 tabs 04/01/22 [Rx Last Taken Unknown] furosemide 40 mg tablet 40 mg PO BID This is a dose increase #180 tabs 04/01/22 [Rx Last Taken 04/01/22] lisinopril 20 mg tablet 20 mg PO DAILY this is a dose increase #90 tabs 04/01/22 [Rx Last Taken 04/01/22] Allergy/AdvReac Type Severity Reaction Status Date / Time adhesive tape Allergy Other Verified 04/01/22 17:46 duloxetine Allergy PT UNSURE Verified 04/01/22 17:59 OF REACTION erythromycin base Allergy Rash Verified 04/01/22 17:49 gabapentin Allergy Swelling Verified 04/01/22 17:49 pioglitazone [From Actos] Allergy PT UNSURE Verified 04/01/22 17:49 OF REACTION codeine AdvReac Other Verified 04/01/22 17:49 Surgical History History of total hip arthroplasty Hx of appendectomy Hx of tubal ligation Social History Smoking Status: Former smoker ROS ROS ED ROS Narrative Shortness of breath. Review of Systems ROS Unobtainable: Denies due to encephalopathy Constitutional Constitutional ED: Denies chills or fever(s) Eyes Eyes: Denies blurry vision ENT ENT ED: Denies ear pain Cardiovascular Cardiovascular: Reports chest pain Respiratory/Chest Respiratory/Chest: Reports cough and dyspnea Gastrointestinal Gastrointestinal: Denies abdominal pain, constipation, diarrhea, melena, nausea or vomiting Genitourinary Genitourinary ED: Denies dysuria or hematuria Musculoskeletal Musculoskeletal: Denies arthralgias Integumentary Denies abscess Neurologic Neurologic: Denies headache(s) Psychiatric Psychiatric: Denies anxiety Endocrine Endocrinology: Denies cold intolerance Hematologic/Lymphatic Hematologic/Lymphatic: Denies easy bleeding Allergic/Immunologic Allergic/Immunologic ED: Denies mouth swelling or tongue swelling EXAM Physical Exam Narrative Exam Narrative: 68-year-old female tender 9.6 clinically she feels warmer than not. Blood pressure 226/56 pulse ox 96% on 4 L hypoxic without oxygen. H EENT exam unremarkable. Neck nontender no JVD. No lymphadenopathy. Lungs clear to auscultation. Heart irregularly irregular rate of 94 systolic 3/6 ejection murmur. Abdomen soft nontender. Moving all 4 extremities. 1-2+ pitting edema both lower extremities chronic. Neurologically she is awake and alert. Answering questions following commands. Const Vital Signs: 04/01/22 17:50 04/01/22 17:44 04/01/22 18:11 Temperature 99.6 F H Temperature Source Temporal Pulse Rate 94 Respiratory Rate 30 H Respiratory Effort Respiratory Depth Respiratory Pattern Blood Pressure 226/56 H 217/56 H Blood Pressure Mean 112 109 Pulse Ox 96 97 Oxygen Delivery Method Nasal Cannula Nasal Cannula Oxygen Flow Rate (L/min) 4 4 04/01/22 19:08 04/01/22 19:08 04/01/22 20:25 Temperature Temperature Source Pulse Rate 90 60 Respiratory Rate 18 18 Respiratory Effort Normal Respiratory Depth Shallow Respiratory Pattern Tachypnea Blood Pressure 187/105 H 172/53 H Blood Pressure Mean 132 92 Pulse Ox 97 97 Oxygen Delivery Method Nasal Cannula Nasal Cannula Nasal Cannula Oxygen Flow Rate (L/min) 4 4 4 04/01/22 21:06 Temperature Temperature Source Pulse Rate 76 Respiratory Rate 20 H Respiratory Effort Respiratory Depth Respiratory Pattern Blood Pressure 163/50 H Blood Pressure Mean 87 Pulse Ox 97 Oxygen Delivery Method Nasal Cannula Oxygen Flow Rate (L/min) 4 Positive well nourished, well developed and obese; Negative for cachectic or unkempt General Appearance ED: well developed; Negative for unkempt, cachectic, NAD or pallor Nutritional Appearance: obese; Negative for cachectic HEENT Reports moist mucous membranes atraumatic; Negative for trauma Eyes PERRL and EOMs intact bilaterally General Eye ED: Negative for pale conjunctiva or scleral icterus Neck no lymphadenopathy, supple, no meningeal signs and no JVD General: Negative for tenderness Lymph Lymphatic: Negative for other Resp No normal respiratory effort and No clear to auscultation bilaterally Resp Narrative: Increased respiratory rate. Rales on exam. Auscultation: rales; Negative for rhonchi or wheezes Cardio regular rate; Negative for regular rhythm Cardio Narrative: A. fib rate about 94. 3/6 to 4/6 systolic ejection murmur. GI non-tender, non-distended and no masses Auscultation: normoactive bowel sounds Palpation: soft; Negative for tender or guarding Back/Spine no CVA tenderness Extremity Negative for normal to inspection Extremity Narrative: Bilateral lower extremity chronic edema 1+ pitting bilaterally. General Extremety ED: Yes edema General Extremity: edema Neuro oriented x3 Sensorium / Orientation: alert, oriented to person, oriented to place and oriented to time; Negative for orientation impaired, confused, lethargic or stuporous Speech: speech normal Sensory Exam: sensory level loss detected Motor Exam: strength 5/5 throughout Psych mental status grossly normal Appearance: Negative for unkempt Attitude: No agitated Mood & Affect: Negative for depressed, anxious or tearful Thought Process: normal thought process Skin no wounds General Skin Exam: Negative for jaundice or pallor Lesions: no lesions Rashes: no rashes MDM MDM MDM Narrative Medical decision making narrative: 76-year-old female short of breath hypoxic new onset A. fib. She also has a low-grade temperature nine 9.6 this could be A. fib with failure versus infectious etiology versus other causes. She undergo a cardiac work-up including blood cultures also BNP and COVID test. Repeat exam patient is doing much better at 10:10 PM. Family is in the room family is a OB nurse. Patient was started on IV Rocephin. Currently she is resting comfortably clinically looks improved. Her pulse ox is in the mid 90s. Currently she is in a sinus rhythm in the 60s. She is currently out of A. fib. Lab Data Attestation: I reviewed the patient's lab results. Lab results narrative: BUN ofCBC shows a white count 9.2. H&H 10.9 and 33.7. Platelets 131. Electrolytes show a sodium 139 gap of 8 creatinine 1.89 consistent with dehydration. Glucose of 209. BNP is elevated at 597. Troponins elevated 56. Lactic acid is normal at 1.7. Urinalysis shows 50-100 white cells with no nitrites and rare bacteria. A culture will be sent. Labs: Laboratory Results - last 24 hr 04/01/22 04/01/22 04/01/22 17:35 17:35 17:35 WBC 9.2 RBC 3.71 L Hgb 10.9 L Hct 33.7 L MCV 90.8 MCH 29.4 MCHC 32.3 RDW Std Deviation 65.1 H RDW Coeff of Nael 19.4 H Plt Count 131 L MPV TNP Immature Gran % (Auto) 1.000 H Neut % (Auto) 83.1 H Lymph % (Auto) 5.8 L Ada % (Auto) 9.2 Eos % (Auto) 0.2 Baso % (Auto) 0.7 Absolute Neuts (auto) 7.6 Absolute Lymphs (auto) 0.53 L Nucleated RBC % 0 Differential Comment SEE COMMENT Platelet Estimate SLT DEC RBC Morphology N CHROM Anisocytosis 1+ Macrocytosis RARE Ovalocytes RARE Sodium 139 Potassium 4.2 Chloride 107 Carbon Dioxide 24.0 Anion Gap 8 BUN 55 H Creatinine 1.89 H Estim Creat Clear Calc 18.51 Est GFR (MDRD) Af Amer 33 L Est GFR (MDRD) Non-Af 27 L BUN/Creatinine Ratio 29.1 H Glucose 209 H Lactic Acid Calcium 10.0 Troponin I High Sens 56 H B-Natriuretic Peptide 597.3 H Urine Color Urine Clarity Urine pH Ur Specific Cushing Urine Protein Urine Glucose (UA) Urine Ketones Urine Occult Blood Urine Nitrite Urine Bilirubin Urine Urobilinogen Ur Leukocyte Esterase Urine RBC Urine WBC Ur Squamous Epith Cells Urine Bacteria Urine Mucus 04/01/22 04/01/22 04/01/22 18:15 18:55 20:15 WBC RBC Hgb Hct MCV MCH MCHC RDW Std Deviation RDW Coeff of Nael Plt Count MPV Immature Gran % (Auto) Neut % (Auto) Lymph % (Auto) Ada % (Auto) Eos % (Auto) Baso % (Auto) Absolute Neuts (auto) Absolute Lymphs (auto) Nucleated RBC % Differential Comment Platelet Estimate RBC Morphology Anisocytosis Macrocytosis Ovalocytes Sodium Potassium Chloride Carbon Dioxide Anion Gap BUN Creatinine Estim Creat Clear Calc Est GFR (MDRD) Af Amer Est GFR (MDRD) Non-Af BUN/Creatinine Ratio Glucose Lactic Acid 1.7 Calcium Troponin I High Sens 97 H B-Natriuretic Peptide Urine Color Straw Urine Clarity Sl. Cloudy Urine pH 6.0 Ur Specific [place] 1.020 Urine Protein 100 H Urine Glucose (UA) Normal Urine Ketones Negative Urine Occult Blood 10 H Urine Nitrite Negative Urine Bilirubin Negative Urine Urobilinogen Normal Ur Leukocyte Esterase 500 H Urine RBC 0-5 SEEN Urine WBC 50-100 SEEN Ur Squamous Epith Cells 0-5 SEEN Urine Bacteria RARE Urine Mucus 0 SEEN Radiography Chest X-Ray - ED: 1 View and Read by ED Physician Diagnostic Testing: Clinical Impression(s) from Imaging Studies Chest X-Ray 04/01/22 18:17 IMPRESSION: There is bilateral infiltrate. Electronically Signed: Hossein Mcgrath MD at 18:39 EDT Reading Location ID and State: [facility]– [place] / [place] , Service support , Rhythm Strip Rhythm Strip: A-fib Rate: 94 Ectopy: None EKG Initial EKG: Attestation: I personally reviewed and interpreted this EKG as follows: Interpretation: No Acute Injury Pattern and Atrial Fibrillation Comments: Atrial fibrillation rate of 94 no acute signs of CO or ischemia. Discharge Plan Triage Chief Complaint: Shortness of Breath ED Provider: Coy Nolen Dx/Rx/DC Orders Clinical Impression: A-fib, Chronic kidney disease (CKD), Type 2 diabetes mellitus, CHF (congestive heart failure), Hypoxia, Acute UTI Prescriptions: No Action objvtdyh-jwnrszx-vxqu-lutein Tablet 1 tab PO DAILY acetaminophen [Tylenol 8 Hour] 650 mg tablet extended release 1,300 mg PO Q12H diphenhydramine HCl [Benadryl] 25 mg capsule 25 mg PO QHS PRN (Reason: Allergy Symptoms) levothyroxine [Levoxyl] 100 MCG tablet 100 mcg PO DAILY Label Comments: THYROID amlodipine 10 mg tablet 10 mg PO DAILY insulin glargine [Lantus Solostar U-100 Insulin] 100 unit/mL (3 mL) insulin pen 45 unit subcut DAILY Label Comments: DIABETES-long acting insulin hydralazine 50 mg tablet 50 mg PO TID Caltrate + D3 Plus Minerals 300 mg-800 unit -25 mg-0.5 mg tablet 1 tab PO BID furosemide 40 mg tablet 40 mg PO BID Qty: 180 3RF lisinopril 20 mg tablet 20 mg PO DAILY Qty: 90 3RF Label Comments: 10 MG TAB 04/01/22 PT INCREASED TO [address] APPT ON 04/01/22 Eliquis 2.5 mg tablet 2.5 mg PO BID Qty: 60 11RF Primary Care Provider: Orion Lacy Referrals: Orion Lacy MD [Primary Care Provider] - Disposition Disposition: Acute Care Hospital [facility]
[2022-04-01 18:17] LABS: Absolute Lymphocyte Count 0.53 X10^3/uL (0.83-4.51); Absolute Neutrophil Count 7.6 X10^3/uL (2.0-7.7); Basophil# 0.06 X10^3/uL; Basophil% 0.7 % (0-1); Eosinophil# 0.02 X10^3/uL; Eosinophils% 0.2 % (0-5); Hematocrit 33.7 % (37-47); Hemoglobin 10.9 g/dL (12.0-15.0); Lymphocyte # 0.53 X10^3/ul (0.83-4.51); Lymphocyte % 5.8 % (19-41); Mean Corp Hgb Conc 32.3 g/dL (32-36); Mean Corpuscular Hgb 29.4 pg (27.0-32.0); Mean Corpuscular Volume 90.8 fL (81-99); Monocyte# 0.85 X10^3/uL; Monocyte% 9.2 % (0-10); NRBC Flagged by Analyzer 0 % (0-5); Neutrophil # 7.64 X10^3/uL (2.7-7.7); Neutrophil % 83.1 % (47-70); POSITIVE DIFFERENTIAL YES; POSITIVE MORPHOLOGY YES; Platelet Count 131 K/mm3 (150-450); RBC Distribution Width CV 19.4 % (11.6-14.6); RBC Distribution Width SD 65.1 fl (35.1-43.9); Red Blood Count 3.71 M/mm3 (4.2-5.4); White Blood Count 9.2 K/mm3 (4.4-11.0)
--- NOTE | 2022-04-01 18:17 | RAD_ITS ---
STUDY: X-RAY CHEST REASON FOR EXAM: Female, 76 years old. SOB / SOA chest pain TECHNIQUE: XR Chest 1 View COMPARISON: 09/05/2013 FINDINGS: There is bilateral infiltrate. Normal size heart. Metallic clips along the left hilus suggesting prior surgery. Normal visualized pulmonary arteries. There is atherosclerotic calcification of the aortic arch with tortuosity. There are diffuse degenerative changes of the visualized thoracic spine. There is degenerative osteoarthritis of the bilateral shoulders. There is no demonstrated abnormality of the visualized soft tissue structures of the upper abdomen. RAD/Chest 1 View (Portable) IMPRESSION: There is bilateral infiltrate. Electronically Signed: Hossein Mcgrath MD at 18:39 EDT ,
[2022-04-01 18:18] LABS: Differential Indicated SCAN CRITERIA MET
[2022-04-01 18:33] LABS: Anion Gap 8 (5-15); BUN 55 mg/dL (7-18); BUN/Creat Ratio 29.1 RATIO (10-20); Chloride 107 mmol/L (98-107); Creatinine, Serum 1.89 mg/dL (0.55-1.02); EST Glomerular Filtration Rate 27 mL/min (>60); Est Glom Filt Rate - Afr Amer 33 mL/min (>60); Estimated Creatinine Clearance 18.51 ml/min; Glucose 209 mg/dL (74-106); Potassium 4.2 mmol/L (3.5-5.1); Sodium Level 139 mmol/L (136-145); Troponin-I HS (w/2H Reflex) 56 pg/mL (3.0-54.0)
[2022-04-01 18:41] LABS: Anisocytosis 1+; Macrocytosis RARE; Platelet Estimate SLT DEC (ADEQ); Red Cell Morphology N CHROM NORMAL (NORM C&C)
[2022-04-01 18:42] LABS: Ovalocyte RARE
[2022-04-01 18:43] LABS: Lactic Acid 1.7 mmol/L (0.4-1.9)
[2022-04-01 18:47] LABS: BNP,B-Type NATRIURETIC PEPTIDE 597.3 pg/mL (0-100)
[2022-04-01 19:01] LABS: Mucous, Urine 0 SEEN /hpf (<or=2+)
[2022-04-01] MEDS: Acetaminophen 500 MG Tablet 1000 MG PO (19:05)
[2022-04-01 19:06] LABS: Color, Urine Straw (Yellow); Glucose, Dipstick Normal (Normal); Ketone-Dipstick Negative (Negative); Leukocyte Esterase-Dipstick 500 /ul (Negative); Nitrite-Dipstick Negative (Negative); Occult Blood-Urine 10 /ul (Negative); Protein-Dipstick 100 mg/dl (Negative); Urine Bilirubin Dipstick Negative (Negative); Urine Clarity Sl. Cloudy (Clear); Urine Urobilinogen Normal (Normal)
[2022-04-01 19:24] LABS: White Blood Cells 50-100 SEEN /hpf (0-5)
[2022-04-01 19:25] LABS: Bacteria RARE /hpf (None Seen); Red Blood Cells-Urine 0-5 SEEN /hpf (0-5); Squamous Epithelial Cells - UA 0-5 SEEN /hpf (5-10)
[2022-04-01 20:10] LABS: Reflex Troponin-HS? (from REC) Y
[2022-04-01 20:44] LABS: Troponin-I HS 97 pg/mL (3.0-54.0)
--- NOTE | 2022-04-01 22:26 | HP.PCM.HOS_ITS ---
[facility] - General General Date of Admission: 04/01/22 Date of Service: 04/01/22 Chief Complaint: Shortness of breath HPI Narrative MIROSLAVA OSWALD, is a 76 F with a significant history of heart failure with preserved ejection fraction who presents to the emergency department via squad for shortness of breath. Patient reports progressively worsening shortness of breath for 3 days. On the day of presentation patient went to her reservations sales agent office(Dr. Olivares's office) for a routine blood work. Also because 10 days prior to presentation patient was in complete heart block she went to her chicken hatchery helper (Dr. Palomino's) on the same day of presentation. EKG at chicken hatchery helper office showed new onset atrial fibrillation. Also patient was hypoxic with oxygen saturation of 88 to 90%. Her medications were changed. When patient went home she even got more short of breath. At baseline patient sleeps in a recliner or couch because of back issues. She denies paroxysmal nocturnal dyspnea. She reports new swelling in her bilateral hands and increased swelling of her bilateral lower extremity which is above her baseline. She denies any change in her urinary habits. [facility] Medical History (HFpEF) heart failure with preserved ejection fraction Calcification of mitral valve Chronic kidney disease (CKD) Essential hypertension Hypothyroidism Mobitz type 2 second degree atrioventricular block Obesity Secondary pulmonary arterial hypertension Type 2 diabetes mellitus Home Medications levothyroxine 100 mcg tablet (Levoxyl) 100 mcg PO DAILY 09/18/13 [History Last Taken 03/31/22] calcium carb 300 mg-D3 800 unit-mag ox 25 mg-copy director 0.5 mg-jodi-Zn tablet (Caltrate + D3 Plus Minerals) 1 tab PO BID 03/22/22 [History Last Taken 04/01/22] hydralazine 50 mg tablet 50 mg PO TID 03/22/22 [History Last Taken 04/01/22] insulin glargine 100 unit/mL (3 mL) subcutaneous pen (Lantus Solostar U-100 I nsulin) 45 unit subcut DAILY 03/22/22 [History Last Taken 04/01/22] acetaminophen 650 mg tablet,extended release (Tylenol 8 Hour) 1,300 mg PO Q12H QHS 03/24/22 [History Last Taken 03/31/22] diphenhydramine HCl 25 mg capsule (Benadryl) 25 mg PO QHS PRN Allergy Symptoms 03/24/22 [History Last Taken Unknown] evvafmzb-lnqjmut-euvy-lutein tablet 1 tab PO DAILY 03/24/22 [History Last Taken 04/01/22] amlodipine 10 mg tablet 10 mg PO DAILY BP 04/01/22 [History Last Taken 04/01/22] apixaban 2.5 mg tablet (Eliquis) 2.5 mg PO BID #60 tabs 04/01/22 [Rx Last Taken Unknown] furosemide 40 mg tablet 40 mg PO BID This is a dose increase #180 tabs 04/01/22 [Rx Last Taken 04/01/22] lisinopril 20 mg tablet 20 mg PO DAILY this is a dose increase #90 tabs 04/01/22 [Rx Last Taken 04/01/22] Allergy/AdvReac Type Severity Reaction Status Date / Time adhesive tape Allergy Other Verified 04/01/22 17:46 duloxetine Allergy PT UNSURE Verified 04/01/22 17:59 OF REACTION erythromycin base Allergy Rash Verified 04/01/22 17:49 gabapentin Allergy Swelling Verified 04/01/22 17:49 pioglitazone [From Actos] Allergy PT UNSURE Verified 04/01/22 17:49 OF REACTION codeine AdvReac Other Verified 04/01/22 17:49 Surgical History History of total hip arthroplasty Hx of appendectomy Hx of tubal ligation Social History Smoking Status: Former smoker ROS ROS Narrative Pertinent positives and pertinent negatives as noted in HPI. All other systems were reviewed and are negative. Vital Signs Vital Signs Vital Signs: 04/01/22 17:50 04/01/22 17:44 04/01/22 18:11 Temperature 99.6 F H Temperature Source Temporal Pulse Rate 94 Respiratory Rate 30 H Respiratory Effort Respiratory Depth Respiratory Pattern Blood Pressure 226/56 H 217/56 H Blood Pressure Mean 112 109 Pulse Ox 96 97 Oxygen Delivery Method Nasal Cannula Nasal Cannula Oxygen Flow Rate (L/min) 4 4 04/01/22 19:08 04/01/22 19:08 04/01/22 20:25 Temperature Temperature Source Pulse Rate 90 60 Respiratory Rate 18 18 Respiratory Effort Normal Respiratory Depth Shallow Respiratory Pattern Tachypnea Blood Pressure 187/105 H 172/53 H Blood Pressure Mean 132 92 Pulse Ox 97 97 Oxygen Delivery Method Nasal Cannula Nasal Cannula Nasal Cannula Oxygen Flow Rate (L/min) 4 4 4 04/01/22 21:06 04/01/22 22:17 Temperature Temperature Source Pulse Rate 76 68 Respiratory Rate 20 H 16 Respiratory Effort Respiratory Depth Respiratory Pattern Blood Pressure 163/50 H 159/57 H Blood Pressure Mean 87 91 Pulse Ox 97 97 Oxygen Delivery Method Nasal Cannula Nasal Cannula Oxygen Flow Rate (L/min) 4 4 Weight Weight: 91.3 kg Body Mass Index (BMI) 38.0 Physical Exam Narrative Physical exam: General: Well-nourished, well-developed. Head: Normocephalic, atraumatic, no tenderness Eyes: Vision is grossly intact. EOMI ENT, no trauma, moist mucous membranes, no rhinorrhea Neck: Nontender, full range of motion CVS: Irregularly irregular rate and rhythm. Respiratory : clear to auscultation bilaterally, chest wall nontender, no wheezing Abdomen: Soft, nontender, nondistended, normal bowel sounds, no masses : Deferred Back: Nontender, no CVA tenderness, no midline spinal tenderness, deformities, step-offs Extremities: Edema bilateral hands. Edema bilateral legs with bullous at the medial side of her left leg. No cyanosis. Skin: Normal color, no trauma, abrasions Neuro: Alert, oriented, cranial nerves II through XII grossly intact. Psychiatry: Normal mood. Normal affect. Not depressed. Not anxious. Results Lab / Micro Data Result Diagrams: 04/01/22 17:35 04/01/22 17:35 Labs: Laboratory Results - last 24 hr 04/01/22 17:35: WBC 9.2, RBC 3.71 L, Hgb 10.9 L, Hct 33.7 L, MCV 90.8, MCH 29.4, MCHC 32.3, RDW Std Deviation 65.1 H, RDW Coeff of Nael 19.4 H, Plt Count 131 L, MPV TNP, Immature Gran % (Auto) 1.000 H, Neut % (Auto) 83.1 H, Lymph % (Auto) 5.8 L, [place] % (Auto) 9.2, Eos % (Auto) 0.2, Baso % (Auto) 0.7, Absolute Neuts (auto) 7.6, Absolute Lymphs (auto) 0.53 L, Nucleated RBC % 0, Differential Comment SEE COMMENT, Platelet Estimate SLT DEC, RBC Morphology N CHROM, Anisocytosis 1+, Macrocytosis RARE, Ovalocytes RARE 04/01/22 17:35: Sodium 139, Potassium 4.2, Chloride 107, Carbon Dioxide 24.0, Anion Gap 8, BUN 55 H, Creatinine 1.89 H, Estim Creat Clear Calc 18.51, Est GFR (MDRD) Af Amer 33 L, Est GFR (MDRD) Non-Af 27 L, BUN/Creatinine Ratio 29.1 H, Glucose 209 H, Calcium 10.0, Troponin I High Sens 56 H 04/01/22 17:35: B-Natriuretic Peptide 597.3 H 04/01/22 18:15: Lactic Acid 1.7 04/01/22 18:55: Urine Color Straw, Urine Clarity Sl. Cloudy, Urine pH 6.0, Ur S pecific [place] 1.020, Urine Protein 100 H, Urine Glucose (UA) Normal, Urine Ketones Negative, Urine Occult Blood 10 H, Urine Nitrite Negative, Urine Bili doran Negative, Urine Urobilinogen Normal, Ur Leukocyte Esterase 500 H, Urine RBC 0-5 SEEN, Urine WBC 50-100 SEEN, Ur Squamous Epith Cells 0-5 SEEN, Urine Bacteria RARE, Urine Mucus 0 SEEN 04/01/22 20:15: Troponin I High Sens 97 H Micro: Microbiology 04/01/22 18:17 Nasal Secretion SARS-CoV-2 Antigen (Rapid) - Final Rhythm Strip Rhythm Strip: A-fib Rate: 94 Ectopy: None Radiology Impression Chest X-Ray 04/01/22 18:17 IMPRESSION: There is bilateral infiltrate. Electronically Signed: Hossein Mcgrath MD at 18:39 EDT , Assessment & Plan Assessment/Plan (1) (HFpEF) heart failure with preserved ejection fraction: (2) A-fib: (3) Type 2 diabetes mellitus: (4) Chronic kidney disease (CKD): (5) UTI (urinary tract infection): (6) Elevated troponin: PLAN: Plan Acute Exacerbation of heart failure with preserved ejection fraction Place on monitored bed on PCU Weight on admission to the floor; and then daily Strict I&O's CXR was visualized and independently interpreted. I agree with radiologist interpretation of bilateral infiltrates. Emergency department labs reviewed showed BNP of 597.3 Lasix IVP ordered. Echocardiogram on 01/16/21 showed estimated ejection fraction of 65% with evidence of diastolic dysfunction; mild to moderate mitral valve insufficiency; mild tricuspid valve insufficiency; right ventricular systolic pressure was estimated to be 54 mmHg. Mild diffuse aortic valve thickening. Trivial pulmonary valve insufficiency. Transthoracic echocardiogram to evaluate left ventricular wall motion and systolic function ordered Titrate diuretics and heart failure/blood pressure medications with blood pressure. Kerlix roll and samantha wrap to bilateral lower extremities Fluid restriction of 1500 mls daily Cardiac and diabetic diet Reports that previously she had leg cramps with Lasix. Potassium supplementation ordered. Check magnesium level Hypertensive Emergency SBP max 202. Heart failure Amlodipine; Lisinopril and po hydralazine continued. PRN Hydralazine IV ordered. Nitroglycerin paste ordered New Onset Afib Rate controlled. Prescribed Eliquis on same day of presentation but did not start taking. Eliquis ordered. UTI Denies any urinary symptoms but with low-grade fever ceftriaxone was started at the emergency department and continued. Follow urine culture. CKD Stage 3b Likely secondary to hypertensive nephrosclerosis and diabetes mellitus. Stable. Elevated troponin Likely demand ischemia. Trended. Type II Diabetes Patient with hyperglycemia on presentation Basal insulin continued Monitor Accu-Cheks Correction scale insulin ordered. DVT Prophylaxis: Eliquis for Afib as above Charges/Coding Visit Charges Inpatient E&M: 16821 Init Hosp L3
[2022-04-01] MEDS: Ceftriaxone 1 GM/50 ML BAG IV (22:30)
[2022-04-01] MEDS: Furosemide 40 MG/4 ML Vial IV (23:03)
--- NOTE | 2022-04-01 23:28 | ECHOD_ITS ---
Reason For Study: SOB Procedure This was a 2D Doppler, Color Flow transthoracic echocardiogram. Exam performed portable in patient room. Left Ventricle Normal left ventricle. The estimated ejection fraction is 60-65 %. Right Ventricle Normal right ventricle. Normal systolic function. Atria The left atrium is severely enlarged. The right atrium is mildly enlarged. Mitral Valve There is severe mitral annular calcification. with Extension of MACto the posterior mitral valve leaflet. Mild-Moderate (1-2+) eccentric mitral valve insufficiency. Tricuspid Valve Normal tricuspid valve. Mild tricuspid valve insufficiency. Aortic Valve Mild diffuse aortic valve thickening. Pulmonic Valve The pulmonic valve is not well visualized. Great Vessels Normal aortic root. Pericardium/Pleural No pericardial effusion. MMode/2D Measurements & Calculations LVIDd: 5.2 cm IVSd: 1.2 cm LVOT diam: 1.8 cm LVIDs: 2.9 cm LVPWd: 1.1 cm LVOT area: 2.5 cm2 RVDd: 3.2 cm FS: 42.9 % Ao root diam: 3.1 cm LAV(MOD-bp): 88.7 ml LA A4 area: 25.2 cm2 LAV(MOD-bp) Indexed: 47.4 ml/m2 LAV(MOD-sp2): 103.6 ml LAV(MOD-sp4): 73.7 ml LA dimension(2D): 4.5 cm RA A4 area: 20.1 cm2 Time Measurements MV dec time: 0.35 sec Doppler Measurements & Calculations MV E max nima: 190.0 cm/sec Lat Peak E' Nmia: 10.3 cm/sec Med Peak E' Nima: 6.7 cm/sec MV A max nima: 93.1 cm/sec E/E' lat: 18.4 E/E' med: 28.3 MV E/A: 2.0 MV V2 max: 270.4 cm/sec MV P1/2t max nima: 285.7 cm/sec Ao V2 max: 218.9 cm/sec MV max P.3 mmHg MV P1/2t: 103.0 msec Ao max P.2 mmHg MV V2 mean: 125.3 cm/sec MV dec slope: 812.4 cm/sec2 Ao V2 mean: 169.0 cm/sec MV mean P.3 mmHg Ao mean P.3 mmHg MV V2 VTI: 92.4 cm MVA(P1/2t): 2.1 cm2 Ao V2 VTI: 55.7 cm MVA(VTI): 1.2 cm2 YOVANA(I,D): 2.0 cm2 YOVANA(V,D): 2.1 cm2 LV V1 max: 185.3 cm/sec SV(LVOT): 109.8 ml PA V2 max: 116.3 cm/sec LV V1 max P.7 mmHg LV V1 mean P.8 mmHg LV V1 mean: 134.1 cm/sec LV V1 VTI: 43.9 cm TR max nima: 329.4 cm/sec TR max P.4 mmHg ECHO/Echo Complete Interpretation Summary The estimated ejection fraction is 60-65 %. with Extension of MACto the posterior mitral valve leaflet Mild - Moderate MR Mild TR No channnnge fro previous echo 03/18/2021 Ordering Physician: Diomedes Glover Referring Physician: Jose Lacy Performed By: Leann Merino, INDER, RVT
[2022-04-02] VITALS (23 sets, daily range): BP systolic 157–202; BP diastolic 47–70; PULSE 43–72; RESP 18; TEMP 36.4–36.8; O2SAT 92–100
[2022-04-02 00:13] LABS: Troponin-I HS 109 pg/mL (3.0-54.0)
[2022-04-02 00:26] LABS: Bedside Glucose 178 mg/dL (74-106)
[2022-04-02] MEDS: 0.9% Saline Lock 10 ML Syringe IV ×4 (00:38→17:54)
[2022-04-02] MEDS: Nitroglycerin Oint 1 INCH PACKET TD ×2 (00:39→06:47)
[2022-04-02] MEDS: hydrALAZINE 20 MG/ML Vial 5 MG IV (03:42)
[2022-04-02 06:43] LABS: Absolute Lymphocyte Count 0.62 X10^3/uL (0.83-4.51); Absolute Neutrophil Count 4.2 X10^3/uL (2.0-7.7); Basophil# 0.04 X10^3/uL; Basophil% 0.7 % (0-1); Eosinophil# 0.07 X10^3/uL; Eosinophils% 1.3 % (0-5); Hematocrit 27.6 % (37-47); Lymphocyte # 0.62 X10^3/ul (0.83-4.51); Lymphocyte % 11.3 % (19-41); Mean Corp Hgb Conc 32.6 g/dL (32-36); Mean Corpuscular Hgb 29.3 pg (27.0-32.0); Mean Corpuscular Volume 89.9 fL (81-99); Mean Platelet Vol. 11.2 fl (6.2-12.0); Monocyte# 0.59 X10^3/uL; Monocyte% 10.7 % (0-10); NRBC Flagged by Analyzer 0 % (0-5); Neutrophil # 4.15 X10^3/uL (2.7-7.7); Neutrophil % 75.5 % (47-70); Platelet Count 110 K/mm3 (150-450); RBC Distribution Width CV 19.2 % (11.6-14.6); RBC Distribution Width SD 63.9 fl (35.1-43.9); Red Blood Count 3.07 M/mm3 (4.2-5.4); White Blood Count 5.5 K/mm3 (4.4-11.0)
[2022-04-02] MEDS: Senna/Docusate Sodium 1 Tablet 2 TABLET PO (06:48)
[2022-04-02] MEDS: Levothyroxine 100 MCG Tablet PO (06:48)
[2022-04-02] MEDS: Acetaminophen 500 MG Tablet 1000 MG PO ×3 (07:00→20:47)
[2022-04-02 07:13] LABS: Anion Gap 4 (5-15); BUN 52 mg/dL (7-18); BUN/Creat Ratio 29.5 RATIO (10-20); Calcium,Total 9.2 mg/dL (8.5-10.1); Chloride 108 mmol/L (98-107); Creatinine, Serum 1.76 mg/dL (0.55-1.02); EST Glomerular Filtration Rate 30 mL/min (>60); Est Glom Filt Rate - Afr Amer 36 mL/min (>60); Estimated Creatinine Clearance 18.92 ml/min; Glucose 144 mg/dL (74-106); Magnesium 2.3 mg/dL (1.6-2.6); Potassium 3.9 mmol/L (3.5-5.1); Sodium Level 140 mmol/L (136-145)
[2022-04-02 07:21] LABS: Bedside Glucose 123 mg/dL (74-106)
--- NOTE | 2022-04-02 08:58 | RAD_ITS ---
STUDY: X-RAY CHEST REASON FOR EXAM: Female, 76 years old. chf TECHNIQUE: AP and lateral views of the chest. COMPARISON: Comparison is made with prior study dated 04/01/2022. FINDINGS: EKG electrodes are seen. Mild residual vascular congestion. Bibasilar pulmonary infiltrates which have progressed as compared to prior study. Blunting of both costophrenic angles. Normal size heart. Surgical clips are seen in the left hilar region. Normal visualized pulmonary arteries. Normal visualized aortic arch and descending thoracic aorta. There are diffuse degenerative changes of the visualized thoracic spine. Normal visualized ribs, clavicles, and shoulders. There is no demonstrated abnormality of the visualized soft tissue structures of the upper abdomen. RAD/Chest PA and Lateral IMPRESSION: Progressive bibasilar pulmonary infiltrates superimposed on mild degree of CHF. Electronically Signed: Tae Martin MD at 11:03 EDT ,
[2022-04-02] MEDS: hydrALAZINE 50 MG Tablet PO ×3 (10:43→16:29)
[2022-04-02] MEDS: Calcium Carb/Vitamin D 1 TABLET Tablet PO ×2 (10:44→16:30)
[2022-04-02] MEDS: APIXABAN 2.5 MG TABLET PO ×2 (10:44→20:47)
[2022-04-02] MEDS: Potassium Chloride Oral Tablet 10 MEQ PO (10:44)
[2022-04-02] MEDS: Multivitamins,Ther W-Minerals Tablet 1 TABLET PO (10:44)
[2022-04-02] MEDS: Lisinopril 20 MG Tablet PO ×2 (10:45→20:48)
[2022-04-02] MEDS: amLODIPine 10 MG Tablet PO (10:45)
[2022-04-02] MEDS: Furosemide 40 MG/4 ML Vial IV ×2 (10:45→17:54)
[2022-04-02] MEDS: Insulin Glargine-YFGN 100 UNIT/ML Pen 45 UNIT SC (10:48)
--- NOTE | 2022-04-02 11:55 | CASEMGMT ---
LIU COLE assessment: Face to Face with patient for initial transition planning/care coordination assessment. LIU COLE introduced self and role at [facility], pt voices understanding and consents to assessment. Pt is sitting up in bed in no distress on room air. Pt is A/Ox4 and answers all questions appropriately. Pt's family is at bedside during assessment.? Care providers, pharmacy,?and demographics verified. ? Presentation: Pt w/ recent med changes for 3rd degree heart block, in afib, also w/ SOB Admitting dx: Acute on Chronic HF PCP: Beck is working on new PCP Specialists: remington Olivares; Georgette cardio Preferred Pharmacy: [facility] Insurance: MCR A/B, MMO Prescription Benefit:? [employer] Living Will/HPOA: Pt has LW/HPOA and is aware that they not on file at [facility]. Pt states her daughter, Jaclyn Osullivan, is HPOA. LNOK: Jaclyn Osullivan, daughter/HPOA Living Arrangements: Pt lives with daughter, Jaclyn, who is also an UROLOGIST PHYSICIAN and works tubing machine tender. Pt states they live in 2 story home and her bedroom is on 2nd floor. Pt states they are looking into a stair lift for pt. Pt is independent with ADL's. Transportation: Pt daughter drives or uses [employer] transit and states no transportation concerns. DME/HHC: Pt has the following DME: quad cane, walker, and shower chair. Pt states no need for any further DME. Pt states has had HHC in the past but has not been to SNF. Pt states no concerns with going home at time of discharge. Pt is retired. Pt does not smoke cigarettes or drink ETOH. Pt states no further concerns/needs. CM to follow for any further discharge planning/needs. Advised pt to ask for CM if any further questions/concerns/needs arise, voices understanding. Pt Goal: Home ? Plan[place]
[2022-04-02] MEDS: Insulin Lispro 100 UNIT/ML INSULN.PEN SC ×2 (12:30→20:48)
[2022-04-02 13:15] LABS: Bedside Glucose 170 mg/dL (74-106)
--- NOTE | 2022-04-02 13:44 | CASEMGMT ---
NOAH spoke with patient and 2 of her daughters. NOAH introduced self and role at [facility]. SW let patient know her Healthcare Power of Audit Clerks Supervisor and Healthcare Living Will are not on file at [facility]. NOAH requested family bring in a copy when able. Lucia Suh MSW LIZZIE
--- NOTE | 2022-04-02 14:56 | PN.HOSP_ITS ---
Subjective Subjective Patient seen and examined today, her echocardiogram today showed a normal ejection fraction with mild to moderate mitral valve insufficiency, left atrium was severely enlarged. Patient is now on room air, she states she still feels weak, she is not being seen by physical therapy. Objective Data Objective Data Vital Signs: Vital Signs Temp Pulse Resp BP Pulse Ox O2 Del Method O2 Flow Rate 98.3 F 62 18 164/54 H 94 Room Air 2 04/02/22 12:30 04/02/22 12:30 04/02/22 12:30 04/02/22 12:30 04/02/22 12:30 04/02/22 12:30 04/02/22 04:55 Oxygen Flow Rate (L/min) 2 Oxygen Delivery Method Room Air Weight: 89 kg Body Mass Index (BMI) 38.3 Intake & Output: Intake and Output for Last 24 Hours 03/31/22 04/01/22 04/02/22 23:59 23:59 23:59 Intake Total 50 / 50 480 / 480 Output Total 550 / 550 1350 / 1350 Balance -500 / -500 -870 / -870 Lab / Micro Data Result Diagrams: 04/02/22 06:00 04/02/22 06:00 Labs: Laboratory Results - last 24 hr 04/01/22 17:35: WBC 9.2, RBC 3.71 L, Hgb 10.9 L, Hct 33.7 L, MCV 90.8, MCH 29.4, MCHC 32.3, RDW Std Deviation 65.1 H, RDW Coeff of Nael 19.4 H, Plt Count 131 L, MPV TNP, Immature Gran % (Auto) 1.000 H, Neut % (Auto) 83.1 H, Lymph % (Auto) 5.8 L, [place] % (Auto) 9.2, Eos % (Auto) 0.2, Baso % (Auto) 0.7, Absolute Neuts (auto) 7.6, Absolute Lymphs (auto) 0.53 L, Nucleated RBC % 0, Differential Comment SEE COMMENT, Platelet Estimate SLT DEC, RBC Morphology N CHROM, Anisocytosis 1+, Macrocytosis RARE, Ovalocytes RARE 04/01/22 17:35: Sodium 139, Potassium 4.2, Chloride 107, Carbon Dioxide 24.0, Anion Gap 8, BUN 55 H, Creatinine 1.89 H, Estim Creat Clear Calc 18.51, Est GFR (MDRD) Af Amer 33 L, Est GFR (MDRD) Non-Af 27 L, BUN/Creatinine Ratio 29.1 H, Glucose 209 H, Calcium 10.0, Troponin I High Sens 56 H 04/01/22 17:35: B-Natriuretic Peptide 597.3 H 04/01/22 18:15: Lactic Acid 1.7 04/01/22 18:55: Urine Color Straw, Urine Clarity Sl. Cloudy, Urine pH 6.0, Ur Specific [place] 1.020, Urine Protein 100 H, Urine Glucose (UA) Normal, Urine Ketones Negative, Urine Occult Blood 10 H, Urine Nitrite Negative, Urine Bilirubin Negative, Urine Urobilinogen Normal, Ur Leukocyte Esterase 500 H, Urine RBC 0-5 SEEN, Urine WBC 50-100 SEEN, Ur Squamous Epith Cells 0-5 SEEN, Urine Bacteria RARE, Urine Mucus 0 SEEN 04/01/22 20:15: Troponin I High Sens 97 H 04/01/22 23:46: Troponin I High Sens 109 H 04/02/22 00:04: POC Glucose 178 H 04/02/22 06:00: WBC 5.5, RBC 3.07 L, Hgb 9.0 L, Hct 27.6 L, MCV 89.9, MCH 29.3, MCHC 32.6, RDW Std Deviation 63.9 H, RDW Coeff of Nael 19.2 H, Plt Count 110 L, MPV 11.2, Immature Gran % (Auto) 0.500, Neut % (Auto) 75.5 H, Lymph % (Auto) 11.3 L, [place] % (Auto) 10.7 H, Eos % (Auto) 1.3, Baso % (Auto) 0.7, Absolute Neuts (auto) 4.2, Absolute Lymphs (auto) 0.62 L, Nucleated RBC % 0 04/02/22 06:00: Sodium 140, Potassium 3.9, Chloride 108 H, Carbon Dioxide 28.0, Anion Gap 4 L, BUN 52 H, Creatinine 1.76 H, Estim Creat Clear Calc 18.92, Est GFR (MDRD) Af Amer 36 L, Est GFR (MDRD) Non-Af 30 L, BUN/Creatinine Ratio 29.5 H , Glucose 144 H, Calcium 9.2, Magnesium 2.3 04/02/22 06:41: POC Glucose 123 H 04/02/22 12:22: POC Glucose 170 H Micro: Microbiology 04/01/22 18:55 Urine Catheter - Roche Urine Culture - Preliminary Culture exhibits no growth. 04/01/22 18:17 Nasal Secretion SARS-CoV-2 Antigen (Rapid) - Final Radiography Diagnostic Testing: Radiology Impression Chest X-Ray 04/01/22 18:17 IMPRESSION: There is bilateral infiltrate. Electronically Signed: Hossein Mcgrath MD at 18:39 EDT , Echocardiogram 04/01/22 23:28 Interpretation Summary The estimated ejection fraction is 60-65 %. with Extension of MACto the posterior mitral valve leaflet Mild - Moderate MR Mild TR No channnnge fro previous echo 03/18/2021 Ordering Physician: Diomedes Glover Referring Physician: Jose Lacy Performed By: Leann Merino, INDER, RVT Chest X-Ray 04/02/22 08:58 IMPRESSION: Progressive bibasilar pulmonary infiltrates superimposed on mild degree of CHF. Electronically Signed: Tae Martin MD at 11:03 EDT , Rhythm Strip Rhythm Strip: A-fib Rate: 94 Ectopy: None Physical Exam Const alert, oriented x3, no apparent distress and healthy appearing General Appearance: cooperative, well kempt and well developed Orientation / Consciousness: awake, oriented to person, oriented to place and oriented to time HEENT normocephalic, head/scalp atraumatic and moist oral mucous membranes Eyes PERRL, EOMs intact bilaterally and conjunctivae normal Neck supple, no JVD, thyroid normal and no carotid bruits General: trachea midline Resp normal respiratory effort, no retractions, no use of accessory muscles and clear to auscultation bilaterally Auscultation: Negative for rales, rhonchi or wheezes Cardio S1 normal heart sound, S2 normal heart sound, no rub and no gallops Cardio Narrative: Heart rate and rhythm is irregular, 2/6 systolic murmur is noted at the apex and right sternal border GI normal to inspection, nondistended, normoactive bowel sounds, soft to palpation, non-tender and non-distended Extremity normal to inspection and no clubbing, cyanosis or edema Skin no rashes or lesions noted General Skin Exam: no breakdown Neuro oriented x3, CN's II-XII intact bilaterally, moves all extremities, no focal motor deficits and no sensory deficits noted Sensorium / Orientation: awake and alert Speech: speech normal Psych affect normal Assessment & Plan Assessment/Plan (1) CHF (congestive heart failure): PLAN: Plan 1. Acute on chronic diastolic congestive heart failure-patient will remain on IV Lasix #2 hypoxia secondary to #1-patient is currently on room air #3 chronic atrial fibrillation-patient is on close but is on no rate control medications #4 pyuria-patient's urine culture exhibits no growth, I will stop her Rocephin #5 hypertensive emergency-patient's blood pressure at this time is 164/54, I will stop her Nitropaste #6 chronic anemia-etiology unclear, I will order iron studies on the patient #7 debility-I will have PT and OT see the patient #8 type 2 diabetes-patient's blood sugars will be monitored, sliding scale insulin will be used if needed Charges/Coding Visit Charges Inpatient E&M: 76834 [facility] Hosp L3
[2022-04-02 15:33] LABS: Anion Gap 6 (5-15); BUN 55 mg/dL (7-18); BUN/Creat Ratio 30.6 RATIO (10-20); Calcium,Total 9.2 mg/dL (8.5-10.1); Chloride 107 mmol/L (98-107); EST Glomerular Filtration Rate 29 mL/min (>60); Est Glom Filt Rate - Afr Amer 35 mL/min (>60); Glucose 171 mg/dL (74-106); Potassium 4.2 mmol/L (3.5-5.1); Sodium Level 139 mmol/L (136-145)
[2022-04-02 15:51] LABS: Iron 27 ug/dL (50-170); Iron Binding Capacity,Total 223 ug/dL (250-450); PERCENT IRON SATURATION 12.1 % (15.0-55.0)
[2022-04-02] MEDS: Glucerna Shake 120 ML LIQUID PO (16:28)
[2022-04-02 17:16] LABS: Bedside Glucose 117 mg/dL (74-106)
[2022-04-02 22:51] LABS: Bedside Glucose 156 mg/dL (74-106)
[2022-04-03] VITALS (10 sets, daily range): BP systolic 151–195; BP diastolic 50–62; PULSE 42–63; RESP 18; TEMP 36.4–36.6; O2SAT 94–97
[2022-04-03] MEDS: hydrALAZINE 20 MG/ML Vial 5 MG IV (00:26)
[2022-04-03] MEDS: 0.9% Saline Lock 10 ML Syringe IV ×2 (00:30→08:46)
[2022-04-03] MEDS: traMADol 50 MG Tablet PO (01:08)
[2022-04-03] MEDS: Levothyroxine 100 MCG Tablet PO (05:33)
[2022-04-03] MEDS: Acetaminophen 500 MG Tablet 1000 MG PO (05:33)
[2022-04-03 07:20] LABS: Bedside Glucose 83 mg/dL (74-106)
[2022-04-03] MEDS: hydrALAZINE 50 MG Tablet PO (08:40)
[2022-04-03] MEDS: APIXABAN 2.5 MG TABLET PO (08:40)
[2022-04-03] MEDS: Lisinopril 20 MG Tablet PO (08:41)
[2022-04-03] MEDS: Calcium Carb/Vitamin D 1 TABLET Tablet PO (08:41)
[2022-04-03] MEDS: amLODIPine 10 MG Tablet PO (08:41)
[2022-04-03] MEDS: Multivitamins,Ther W-Minerals Tablet 1 TABLET PO (08:42)
[2022-04-03] MEDS: Potassium Chloride Oral Tablet 20 MEQ PO (08:42)
[2022-04-03] MEDS: Furosemide 40 MG/4 ML Vial IV (08:43)
[2022-04-03] MEDS: Insulin Glargine-YFGN 100 UNIT/ML Pen 45 UNIT SC (08:49)
[2022-04-03] MEDS: Glucerna Shake 120 ML LIQUID PO (08:51)
--- NOTE | 2022-04-03 10:51 | PCM.DC.SUM ---
Providers Date of Admission: 04/01/22 Date of Discharge: 04/03/22 Primary Care Physician: Dr. Orion Lacy MD Reason For Visit: ACUTE ON CHRONIC HEART FAILURE WITH PRESERVED EF Diagnosis Discharge Diagnosis (1) CHF (congestive heart failure): Status: Acute Code(s): I50.9 - Heart failure, unspecified Medications at Discharge Home Medications levothyroxine 100 mcg tablet (Levoxyl) 100 mcg PO DAILY 09/18/13 calcium carb 300 mg-D3 800 unit-mag ox 25 mg-helicopter repairer 0.5 mg-jodi-Zn tablet (Caltrate + D3 Plus Minerals) 1 tab PO BID 03/22/22 hydralazine 50 mg tablet 50 mg PO TID 03/22/22 insulin glargine 100 unit/mL (3 mL) subcutaneous pen (Lantus Solostar U-100 Insulin) 45 unit subcut DAILY 03/22/22 acetaminophen 650 mg tablet,extended release (Tylenol 8 Hour) 1,300 mg PO Q12H QHS 03/24/22 diphenhydramine HCl 25 mg capsule (Benadryl) 25 mg PO QHS PRN Allergy Symptoms 03/24/22 gmmzximg-eqfoodw-vriv-lutein tablet 1 tab PO DAILY 03/24/22 amlodipine 10 mg tablet 10 mg PO DAILY BP 04/01/22 apixaban 2.5 mg tablet (Eliquis) 2.5 mg PO BID #60 tabs 04/01/22 furosemide 40 mg tablet 40 mg PO BID This is a dose increase #180 tabs 04/01/22 furosemide 40 mg tablet (Lasix) 40 mg PO QODAY #14 tabs 04/03/22 lisinopril 20 mg tablet 20 mg PO BID #60 tabs 04/03/22 Hospital Course Operations None Procedures 2-D Echocardiogram and EKG Summary of Care Provided Minutes Spent on Discharge: 36 Hospital Course: Mrs. Patterson is a 76-year-old white female who presented to the emergency department was coming hospital on 04/01/2022 with shortness of breath. Evidently patient had not been feeling well for several days with increasing shortness of breath over the 3 days prior to presentation. She was seen in her senior staff consultant office a few days prior to and was diagnosed with Mobitz type I Wenckebach AV block was sent to the emergency department as it was felt that she was in heart failure. Her blood pressure was markedly elevated on arrival to the emergency department at 187/105 and it is documented that she was poorly controlled in the senior staff consultant office as well. Medication changes were made at that time and we made further changes with her admission given that her blood pressure remained elevated. Her initial troponin was elevated at 97 with a repeat of 109. An echocardiogram was obtained during her hospital course showing an EF of 60 to 65% with mild to moderate MR and mild TR with no change from her previous echo a year ago. She was aggressively diuresed with 40 mg IV Lasix twice daily and was negative approximately 3.3 L for the hospitalization and lost approximately 2 kg of body weight. Her EKG on admission shows possible atrial fibrillation as was confirmed by the senior staff consultant however it is unclear if this is baseline for her. She is anticoagulated with apixaban 2.5 mg twice daily rate was controlled. With regards to her blood pressure she was maintained on her increased dose of amlodipine 10 mg daily, hydralazine 50 mg 3 times daily and her lisinopril was increased from 20 mg daily to 20 mg p.o. twice daily. As noted above she was diuresed with IV Lasix during her hospital course. Her serum creatinine bumped slightly so we therefore placed her on Lasix 40 mg p.o. every other day for now until she can be reevaluated with a BMP by her primary care physician. We are able to wean her off oxygen and at discharge she was 97% on room air at rest and 95% on room air with exertion. Her blood pressures had improved with increased doses of her home medications however were still slightly elevated above goal. We will keep her on her current medications as noted above but titrations may need to be performed as an outpatient and we have recommended close outpatient monitoring. There was some concern that she possibly had a UTI on admission and a urine culture was sent. Her culture grew out a staph species however colony counts were only 11-25,000 CFU's per mL. Given the low colony counts, antibiotic therapy is not indicated. Patient reported she was feeling better than 90% improved from presentation on the day of discharge. We faxed new prescriptions to her pharmacy and instructed her to follow-up very closely with Dr. Resendez within the next week for blood pressure check and to obtain a basic metabolic profile to recheck her renal function and potassium with changes in her home medications. She was discharged home in stable condition on 04/03/2022. Discharge diagnoses: Acute decompensated HFpEF Hypoxia-resolved PAF Mobitz type I-Wenkebach heart block Hypertensive emergency Troponin elevation Pyuria with no signs of UTI Chronic anemia DM-2 Hypothyroidism Debility Obesity Physical Exam Narrative Patient reports she is between 90 and 100% better since admission. She is anxious to go as her granddaughter is getting later today and would like to be able to attend the wedding. Const alert, oriented x3, no apparent distress, healthy appearing and well nourished Constitutional Narrative: He is, elderly female, sitting up in bed eating breakfast and watching television, appears comfortable and nontoxic, currently on room air and no signs of respiratory distress General Appearance: cooperative, comfortable, well kempt and well developed Orientation / Consciousness: awake, oriented to person, oriented to place and oriented to time Exam Limitations: no limitations Nutritional Appearance: obese HEENT normocephalic, head/scalp atraumatic and moist oral mucous membranes HEENT Narrative: Mild hearing loss, Mallampati 3, no thrush Eyes PERRL, EOMs intact bilaterally and conjunctivae normal Eyes Narrative: No scleral icterus Neck no lymphadenopathy, supple and no JVD Neck Narrative: Trachea midline, no thyroid enlargement Resp normal respiratory effort, no retractions, no use of accessory muscles and clear to auscultation bilaterally Auscultation: Negative for crackles, rales, rhonchi or wheezes Cardio regular rate, regular rhythm, S1 normal heart sound, S2 normal heart sound, no murmurs, no rub, no gallops, no clicks and no JVD GI normal to inspection, nondistended, normoactive bowel sounds, soft to palpation, non-tender and non-distended; Negative for hepatosplenomegaly Extremity no clubbing, cyanosis or edema Extremity Narrative: 2+ pedal pulses Skin no rashes or lesions noted, no wounds, skin turgor normal and no jaundice Skin Narrative: Few scattered ecchymosis from blood draws Neuro oriented x3, CN's II-XII intact bilaterally, moves all extremities, no focal motor deficits and No no sensory deficits noted Sensorium / Orientation: awake, alert, oriented to person, oriented to place and oriented to time Speech: speech normal Psych affect normal Psych Narrative: Very pleasant and appropriately interactive Weight / BMI Weight Weight: 89.7 kg Body Mass Index (BMI) 38.3 ABG / Lab / Microbiology Data Result Diagrams: 04/02/22 06:00 04/02/22 15:00 Laboratory: Laboratory Results - last 24 hr 04/02/22 12:22: POC Glucose 170 H 04/02/22 15:00: Sodium 139, Potassium 4.2, Chloride 107, Carbon Dioxide 26.0, Anion Gap 6, BUN 55 H, Creatinine 1.80 H, Estim Creat Clear Calc 18.50, Est GFR (MDRD) Af Amer 35 L, Est GFR (MDRD) Non-Af 29 L, BUN/Creatinine Ratio 30.6 H, Glucose 171 H, Calcium 9.2 04/02/22 15:11: Iron 27 L, TIBC 223 L, Iron Saturation 12.1 L 04/02/22 16:21: POC Glucose 117 H 04/02/22 20:45: POC Glucose 156 H 04/03/22 06:41: POC Glucose 83 Microbiology: Microbiology 04/01/22 18:55 Urine Catheter - Roche Urine Culture - Preliminary Staphylococcus species 04/01/22 18:17 Nasal Secretion SARS-CoV-2 Antigen (Rapid) - Final Radiography Diagnostic Testing: Radiology Impression Echocardiogram 04/01/22 23:28 Interpretation Summary The estimated ejection fraction is 60-65 %. with Extension of MACto the posterior mitral valve leaflet Mild - Moderate MR Mild TR No channnnge fro previous echo 03/18/2021 Ordering Physician: Diomedes Glover Referring Physician: Jose Lacy Performed By: Leann Merino, RDCS, RVT Chest X-Ray 04/02/22 08:58 IMPRESSION: Progressive bibasilar pulmonary infiltrates superimposed on mild degree of CHF. Electronically Signed: aTe Martin MD at 11:03 EDT , D/C Instructions Discharge Diet: Low fat / Low cholesterol, 1800 Calorie Control Diet, 8 Cup Fluid Restriction and 2000 mg Sodium Diet Discharge Activity: Return to Normal Activity Meaningful Use Info Meaningful Use Diagnoses (Choose all that apply): None applicable Discharge Plan Admission Admit Date/Time: 04/01/22 22:25 Primary Reason for Your Visit: Shortness of breath Attending Provider: Mariely Olivares Primary Care Provider: Orion Lacy Consulting Providers: Diomedes Glover ; Jarrod Willis Instructions Additional Instructions / Restrictions: 1. Please follow-up at primary care physician's office this week for blood pressure check and obtain a basic metabolic profile to recheck kidney function and potassium levels Discharge Orders/Prescriptions Prescriptions: New lisinopril 20 mg Tablet 20 mg PO BID Qty: 60 1RF furosemide [Lasix] 40 mg tablet 40 mg PO QODAY Qty: 14 0RF Continued zwzobeza-nztskcs-frec-lutein Tablet 1 tab PO DAILY acetaminophen [Tylenol 8 Hour] 650 mg tablet extended release 1,300 mg PO Q12H diphenhydramine HCl [Benadryl] 25 mg capsule 25 mg PO QHS PRN (Reason: Allergy Symptoms) levothyroxine [Levoxyl] 100 MCG tablet 100 mcg PO DAILY Label Comments: THYROID amlodipine 10 mg tablet 10 mg PO DAILY insulin glargine [Lantus Solostar U-100 Insulin] 100 unit/mL (3 mL) insulin pen 45 unit subcut DAILY Label Comments: DIABETES-long acting insulin hydralazine 50 mg tablet 50 mg PO TID Caltrate + D3 Plus Minerals 300 mg-800 unit -25 mg-0.5 mg tablet 1 tab PO BID furosemide 40 mg tablet 40 mg PO BID Qty: 180 3RF Eliquis 2.5 mg tablet 2.5 mg PO BID Qty: 60 11RF Discontinued lisinopril 20 mg tablet 20 mg PO DAILY Qty: 90 3RF Label Comments: 10 MG TAB 04/01/22 PT INCREASED TO 20 MG AT APPT ON 04/01/22 Referrals / Follow Up: Orion Lacy MD [Primary Care Provider] - In 1 Week (Hospital follow up and Basic Metabolic Profile) Disposition Disposition (needs filled in before D/C Order can be placed): Home, Self Care Charges/Coding Visit Charges Inpatient E&M: 48544 Disch Hosp
== END 2022-04-03 11:59 | disposition home or self-care (01) | DRG 291 ==
LOC: ED 22:30 → PCU 22:45
PROVIDERS: Internal Medicine; Admitting Provider Hospitalist; Emergency Provider Emergency Medicine; PCP Family Medicine; Visit Provider Internal Medicine
DX: I13.0 Hypertensive heart and chronic kidney disease with heart failure and stage 1 through stage 4 chronic kidney disease, or unspecified chronic kidney disease (principal); I50.33 Acute on chronic diastolic (congestive) heart failure; I48.20 Chronic atrial fibrillation, unspecified; I16.1 Hypertensive emergency; I44.1 Atrioventricular block, second degree; E11.22 Type 2 diabetes mellitus with diabetic chronic kidney disease; E11.65 Type 2 diabetes mellitus with hyperglycemia; D64.9 Anemia, unspecified; Z79.01 Long term (current) use of anticoagulants; Z79.4 Long term (current) use of insulin; N18.32 Chronic kidney disease, stage 3b; I08.1 Rheumatic disorders of both mitral and tricuspid valves; R09.02 Hypoxemia; Z87.891 Personal history of nicotine dependence; R77.8 Other specified abnormalities of plasma proteins
CPT/HCPCS: 36415; 71045; 71046; 80048; 80069; 81001; 82962; 83540; 83550; 83605; 83735; 83880; 83970; 84484; 85025; 85027; 87040; 87077; 87086; 87088; 87186; 87811; 93005; 93306; 97802; 99285; J7050; A4216; J1940

== ENCOUNTER → 2022-04-01 | Outpatient (CLI) | payer MEDICARE, OTHER, SELFPAY ==
[2022-04-01 16:41] LABS: Hematocrit 33.3 % (37-47); Hemoglobin 10.5 g/dL (12.0-15.0); Mean Corp Hgb Conc 31.5 g/dL (32-36); Mean Corpuscular Hgb 28.9 pg (27.0-32.0); Mean Corpuscular Volume 91.7 fL (81-99); POSITIVE MORPHOLOGY YES; Platelet Count 113 K/mm3 (150-450); RBC Distribution Width CV 19.5 % (11.6-14.6); RBC Distribution Width SD 65.9 fl (35.1-43.9); Red Blood Count 3.63 M/mm3 (4.2-5.4); White Blood Count 6.6 K/mm3 (4.4-11.0)
[2022-04-01 17:01] LABS: Albumin, Serum 3.2 g/dL (3.2-5.0); BUN 51 mg/dL (7-18); BUN/Creat Ratio 27.3 RATIO (10-20); Calcium,Total 9.6 mg/dL (8.5-10.1); Chloride 105 mmol/L (98-107); Creatinine, Serum 1.87 mg/dL (0.55-1.02); EST Glomerular Filtration Rate 28 mL/min (>60); Est Glom Filt Rate - Afr Amer 33 mL/min (>60); Glucose 182 mg/dL (74-106); Phosphorus 3.3 mg/dL (2.5-4.9); Potassium 4.2 mmol/L (3.5-5.1); Sodium Level 139 mmol/L (136-145)
[2022-04-01 17:03] LABS: Scan Indicated on CBC? Y/N YES- FLAGS NOTED
[2022-04-01 18:42] LABS: PTHIN 19.9 pg/mL (18.4-80.1)
== END | disposition home or self-care (01) ==
LOC: POLAB3 12:21
PROVIDERS: PCP Family Medicine; Referring Provider Internal Medicine Nephrology; Visit Provider Internal Medicine Nephrology
DX: N18.32 Chronic kidney disease, stage 3b (principal)
CPT/HCPCS: 36415; 80069; 83970; 85027

== ENCOUNTER → 2022-04-06 | Outpatient (CLI) | payer MEDICARE, OTHER, SELFPAY | END | disposition home or self-care (01) | PROVIDERS: Referring Provider Internal Medicine Cardiovascular Disease; Visit Provider Internal Medicine Cardiovascular Disease | DX: I44.1 Atrioventricular block, second degree (principal) | CPT/HCPCS: 93225; 93226 ==

== ENCOUNTER → 2022-04-08 | Outpatient (CLI) | payer MEDICARE, OTHER, SELFPAY ==
[2022-04-08 16:55] LABS: Hematocrit 34.5 % (37-47); Hemoglobin 11.2 g/dL (12.0-15.0); Mean Corp Hgb Conc 32.5 g/dL (32-36); Mean Corpuscular Hgb 29.1 pg (27.0-32.0); Mean Corpuscular Volume 89.6 fL (81-99); Mean Platelet Vol. 11.9 fl (6.2-12.0); Platelet Count 182 K/mm3 (150-450); RBC Distribution Width CV 19.2 % (11.6-14.6); RBC Distribution Width SD 63.4 fl (35.1-43.9); Red Blood Count 3.85 M/mm3 (4.2-5.4); White Blood Count 4.2 K/mm3 (4.4-11.0)
[2022-04-08 17:20] LABS: Albumin, Serum 3.7 g/dL (3.2-5.0); BUN 77 mg/dL (7-18); BUN/Creat Ratio 33.6 RATIO (10-20); Calcium,Total 10.7 mg/dL (8.5-10.1); Chloride 102 mmol/L (98-107); Creatinine, Serum 2.29 mg/dL (0.55-1.02); EST Glomerular Filtration Rate 22 mL/min (>60); Est Glom Filt Rate - Afr Amer 27 mL/min (>60); Ferritin 288 ng/mL (8-252); Glucose 183 mg/dL (74-106); Iron 84 ug/dL (50-170); Iron Binding Capacity,Total 308 ug/dL (250-450); PERCENT IRON SATURATION 27.3 % (15.0-55.0); Phosphorus 4.4 mg/dL (2.5-4.9); Potassium 4.6 mmol/L (3.5-5.1); Sodium Level 138 mmol/L (136-145)
== END | disposition home or self-care (01) ==
LOC: POLAB3 13:27
PROVIDERS: Visit Provider Internal Medicine Nephrology
DX: N17.9 Acute kidney failure, unspecified (principal); D63.8 Anemia in other chronic diseases classified elsewhere
CPT/HCPCS: 36415; 80069; 82728; 83540; 83550; 85027

== ENCOUNTER → 2022-04-21 | Outpatient (CLI) | payer MEDICARE, OTHER, SELFPAY ==
--- NOTE | 2022-04-21 12:36 | CDU_ITS ---
Reason For Study: BRUIT Rt. Velocities/BP Lt. Velocities/BP Prox CCA 1569.3/10.1 cm/sec. Prox CCA 155.2/15.3 cm/sec. Mid CCA 176.9/18.9 cm/sec. Mid CCA 168.1/23.1 cm/sec. Dist CCA 123.5/17.5 cm/sec. Dist CCA 139.6/20.5 cm/sec. Prox ICA 209.8/12.6 cm/sec. Prox ICA 204.4/25.6 cm/sec. Mid ICA 190.4/22.3 cm/sec. Mid ICA 262.4/44.8 cm/sec. Dist ICA 153.4/26.1 cm/sec. Dist ICA 161.5/27.7 cm/sec. Rt. ICA/CCA = 209.8/176.9=1.19. Lt. ICA/CCA = 262.4/168.1=1.56. Prox ECA 271.3/0.0 cm/sec. Prox ECA 301.6/0.0 cm/sec. Rt. Vert. 151.2/23.9 cm/sec. Lt. Vert. 107.0/15.7 cm/sec. Right Extracranial There is intimal thickening but no significant atherosclerotic plaque noted in the right common carotid artery. There is heterogeneous, irregular atherosclerotic plaque noted in the right internal carotid artery. There is heterogeneous, smooth atherosclerotic plaque noted in the right external carotid artery. Antegrade flow is noted in the right vertebral artery. Left Extracranial There is intimal thickening but no significant atherosclerotic plaque noted in the left common carotid artery. There is heterogeneous, irregular atherosclerotic plaque noted in the left internal carotid artery. There is heterogeneous, irregular atherosclerotic plaque noted in the left external carotid artery. Antegrade flow is noted in the left vertebral artery. VL/Carotid Duplex Ultrasound Interpretation Summary Moderate (50-69%) stenosis right extracranial internal carotid. Severe (>70%) stenosis left extracranial internal carotid. Patent and antegrade vertebrals bilaterally. Ordering Physician: Roberto Palomino Referring Physician: RAJWINDER PCP Performed By: Julita Hlil, INDER, RVT
== END | disposition home or self-care (01) ==
LOC: CVS 12:35
PROVIDERS: Referring Provider Internal Medicine Cardiovascular Disease; Visit Provider Internal Medicine Cardiovascular Disease
DX: R09.89 Other specified symptoms and signs involving the circulatory and respiratory systems (principal)
CPT/HCPCS: 93880

== ENCOUNTER → 2022-04-22 | Outpatient (CLI) | payer MEDICARE, OTHER, SELFPAY ==
[2022-04-22 13:16] LABS: Anion Gap 8 (5-15); BUN 111 mg/dL (7-18); BUN/Creat Ratio 46.1 RATIO (10-20); Calcium,Total 9.6 mg/dL (8.5-10.1); Chloride 111 mmol/L (98-107); Creatinine, Serum 2.41 mg/dL (0.55-1.02); EST Glomerular Filtration Rate 21 mL/min (>60); Est Glom Filt Rate - Afr Amer 25 mL/min (>60); Glucose 93 mg/dL (74-106); Potassium 5.5 mmol/L (3.5-5.1); Sodium Level 141 mmol/L (136-145)
== END | disposition home or self-care (01) ==
LOC: LAB 12:27
PROVIDERS: PCP Internal Medicine; Referring Provider Internal Medicine Cardiovascular Disease; Visit Provider Internal Medicine Cardiovascular Disease
DX: R09.89 Other specified symptoms and signs involving the circulatory and respiratory systems (principal); I10 Essential (primary) hypertension
CPT/HCPCS: 36415; 80048

== ENCOUNTER → 2022-04-26 | Outpatient (CLI) | payer MEDICARE, OTHER, SELFPAY ==
[2022-04-26 12:30] LABS: Absolute Lymphocyte Count 0.56 X10^3/uL (0.83-4.51); Absolute Neutrophil Count 1.4 X10^3/uL (2.0-7.7); Basophil# 0.02 X10^3/uL; Basophil% 0.8 % (0-1); Eosinophil# 0.06 X10^3/uL; Eosinophils% 2.5 % (0-5); Hematocrit 28.5 % (37-47); Hemoglobin 9.1 g/dL (12.0-15.0); Lymphocyte # 0.56 X10^3/ul (0.83-4.51); Mean Corp Hgb Conc 31.9 g/dL (32-36); Mean Corpuscular Hgb 29.2 pg (27.0-32.0); Mean Corpuscular Volume 91.3 fL (81-99); Monocyte# 0.33 X10^3/uL; Monocyte% 13.6 % (0-10); NRBC Flagged by Analyzer 0 % (0-5); Neutrophil # 1.44 X10^3/uL (2.7-7.7); Neutrophil % 59.3 % (47-70); POSITIVE COUNT YES; POSITIVE DIFFERENTIAL YES; Platelet Count 89 K/mm3 (150-450); RBC Distribution Width CV 18.5 % (11.6-14.6); Red Blood Count 3.12 M/mm3 (4.2-5.4); White Blood Count 2.4 K/mm3 (4.4-11.0)
[2022-04-26 12:38] LABS: Differential Indicated SCAN CRITERIA MET
[2022-04-26 13:01] LABS: Anion Gap 8 (5-15); BUN 76 mg/dL (7-18); BUN/Creat Ratio 39.6 RATIO (10-20); Calcium,Total 9.1 mg/dL (8.5-10.1); Chloride 113 mmol/L (98-107); Creatinine, Serum 1.92 mg/dL (0.55-1.02); EST Glomerular Filtration Rate 27 mL/min (>60); Est Glom Filt Rate - Afr Amer 32 mL/min (>60); Glucose 87 mg/dL (74-106); Potassium 4.4 mmol/L (3.5-5.1); Sodium Level 142 mmol/L (136-145)
[2022-04-26 13:16] LABS: Anisocytosis 1+; Ovalocyte 1+; Platelet Estimate SLT DEC (ADEQ)
[2022-04-26 23:48] LABS: Pathologist Review May foll
== END | disposition home or self-care (01) ==
LOC: LAB 09:35
PROVIDERS: Internal Medicine Cardiovascular Disease; PCP Internal Medicine; Visit Provider Internal Medicine
DX: I48.91 Unspecified atrial fibrillation (principal); I50.32 Chronic diastolic (congestive) heart failure; E11.22 Type 2 diabetes mellitus with diabetic chronic kidney disease; Z79.4 Long term (current) use of insulin; N18.32 Chronic kidney disease, stage 3b; Z79.01 Long term (current) use of anticoagulants
CPT/HCPCS: 36415; 80048; 85025

== ENCOUNTER 2022-04-28 10:08 | Emergency (ER) | payer MEDICARE, OTHER, SELFPAY ==
[2022-04-28] VITALS (8 sets, daily range): BP systolic 104–161; BP diastolic 39–68; PULSE 45–66; RESP 12–22; TEMP 36.4–36.6; O2SAT 96–100; BMI 35.3
--- NOTE | 2022-04-28 10:15 | EDS_ITS ---
HPI History of Present Illness Chief Complaint: Lower Extremity Injury Narrative Narrative: Patient presents via EMS with right hip pain, and feeling that it is out of place. She has past medical history of atrial fibrillation and anticoagulation use. She states that she had both of her hips replaced back in 2002. She has had sensations that her hip has popped out of place but goes back in. 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 She denies any falling. No hitting of her head or other injury. Pain is worse with movement and relieved by nothing. [facility] Medical History (HFpEF) heart failure with preserved ejection fraction Arthritis Bilateral extracranial carotid artery stenosis Calcification of mitral valve Cataracts, bilateral Chronic kidney disease (CKD) Essential hypertension Hypothyroidism New onset atrial fibrillation (04/01/22) Obesity Secondary pulmonary arterial hypertension Type 2 diabetes mellitus Uterine cancer Home Medications levothyroxine 100 mcg tablet (Levoxyl) 100 mcg PO DAILY thyroid 09/18/13 [History Last Taken 03/31/22] hydralazine 50 mg tablet 50 mg PO TID blood pressure 03/22/22 [History Last Taken 04/01/22] acetaminophen 650 mg tablet,extended release (Tylenol 8 Hour) 1,300 mg PO Q12H QHS 03/24/22 [History Last Taken 03/31/22] diphenhydramine HCl 25 mg capsule (Benadryl) 25 mg PO QHS PRN Allergy Symptoms 03/24/22 [History Last Taken Unknown] rkjaejqu-sctiivm-jmva-lutein tablet 1 tab PO DAILY vitamin 03/24/22 [History Last Taken 04/01/22] amlodipine 10 mg tablet 10 mg PO DAILY BP 04/01/22 [History Last Taken 04/01/22] apixaban 2.5 mg tablet (Eliquis) 2.5 mg PO BID #60 tabs 04/01/22 [Rx Last Taken Unknown] lisinopril 20 mg tablet 20 mg PO BID #60 tabs 04/03/22 [Rx Last Taken Unknown] ascorbic acid (vitamin C) 1,000 mg capsule 1 g PO BID 04/21/22 [History Last Taken Unknown] calcium citrate 1,000 mg tablet 1,000 mg PO BID 04/21/22 [History Last Taken Unknown] cholecalciferol (vitamin D3) 50 mcg (2,000 unit) capsule 50 mcg PO BID 04/21/22 [History Last Taken Unknown] insulin glargine 100 unit/mL (3 mL) subcutaneous pen (Lantus Solostar U-100 Insulin) 45 unit (0.45 mL) subcut DAILY diabetes #15 mL 04/21/22 [Rx Last Taken Unknown] furosemide 40 mg tablet 40 mg PO DAILY #180 tabs 04/22/22 [Rx Last Taken Unknown] oxycodone-acetaminophen 5 mg-325 mg tablet (Percocet) 1 tab PO Q6H PRN pain 3 days #12 tabs 04/28/22 [Rx Last Taken Unknown] Allergy/AdvReac Type Severity Reaction Status Date / Time adhesive tape Allergy Other Verified 04/21/22 15:00 duloxetine Allergy PT UNSURE Verified 04/21/22 15:00 OF REACTION erythromycin base Allergy Rash Verified 04/21/22 15:00 gabapentin Allergy Swelling Verified 04/21/22 15:00 pioglitazone [From Actos] Allergy PT UNSURE Verified 04/21/22 15:00 OF REACTION codeine AdvReac headache Verified 04/21/22 15:00 Family History Father Diabetes Myocardial infarction, Onset Age: 45 Hypertension Aunt Breast cancer Arthritis Brother Myocardial infarction, Onset Age: 50 Mother CVA (cerebral vascular accident) Hypertension Daughter Thyroid disorder Surgical History H/O: hysterectomy History of lobectomy of lung History of total hip arthroplasty Hx of appendectomy Hx of tubal ligation S/P debridement Social History household members: children current occupational status: retired current occupation: nurse Smoking Status: Former smoker quit date: 08/15/1959 Electronic Cigarette Use: not used alcohol intake: current alcohol intake frequency: holidays/special occasions only substance use type: does not use what type of physical activity do you participate in: none do you feel safe at home: Yes ROS ROS ED ROS Narrative Constitutional: No fever, no chills. HEENT: No sore throat. No neck pain. No loss of vision. No rhinorrhea. Cardiovascular: No chest pain. No palpitations. No pedal edema. Respiratory: No cough, no shortness of breath. Abdominal: No abdominal pain. No nausea. No vomiting. Genitourinary: No dysuria. No hematuria. Musculoskeletal: No myalgias. Right hip pain, worse with movement. Neurologic: No headaches. No dizziness. No lightheadedness. Skin: No rash. No change in color. Psychiatric: No depression. No anxiety. EXAM Physical Exam Narrative Exam Narrative: Afebrile. Vital signs noted. HEENT: Normocephalic. Atraumatic. PERRL, EOMI. Neck soft and supple. No point tenderness or step off. Cardiovascular: Regular rate with a regular rhythm. No murmurs, rubs, or gallops appreciated. Respiratory: No tachypnea. Lungs clear to auscultation bilaterally. Gastrointestinal: Abdomen soft, nontender, with normoactive bowel sounds. No rebound or guarding. Neurological: Awake. Alert. Nonfocal, nonlateralizing. Skin: No rash. Normal color. No pallor. Musculoskeletal: No pedal edema. Right hip and knee held in flexion. EHL intact on right. Diffuse tenderness to palpation right hip. Pelvis otherwise stable. Const Vital Signs: 04/28/22 10:09 04/28/22 11:24 04/28/22 11:26 Temperature 97.9 F 97.6 F L Temperature Source Oral Pulse Rate 55 L 66 Pulse Rate [1 (Initial Baseline)] 60 Pulse Rate [2] 60 Pulse Rate [5] 58 L Pulse Rate [7] 45 L Pulse Rate [N] 49 L Respiratory Rate 14 16 Respiratory Rate [1 (Initial Baseline)] 16 Respiratory Rate [2] 15 Respiratory Rate [5] 19 H Respiratory Rate [7] 18 Respiratory Rate [N] 12 Blood Pressure 156/54 H 161/55 H Blood Pressure [1 (Initial Baseline)] 161/55 H Blood Pressure [2] 158/67 H Blood Pressure [5] 124/39 H Blood Pressure [7] 104/68 Blood Pressure [N] 123/41 H Blood Pressure Mean 88 Pulse Ox 98 99 Oxygen Delivery Method Room Air Nasal Cannula Oxygen Delivery Method [1 (Initial Baseline)] Nasal Cannula Oxygen Delivery Method [2] Nasal Cannula Oxygen Delivery Method [5] Nasal Cannula Oxygen Delivery Method [6] Nasal Cannula Oxygen Delivery Method [7] Nasal Cannula Oxygen Delivery Method [N] Nasal Cannula Oxygen Flow Rate (L/min) 2 Oxygen Flow Rate (L/min) [1 (Initial Baseline)] 2 Oxygen Flow Rate (L/min) [2] 2 Oxygen Flow Rate (L/min) [5] 5 Oxygen Flow Rate (L/min) [7] 5 Oxygen Flow Rate (L/min) [N] 5 04/28/22 11:53 04/28/22 12:00 04/28/22 12:05 Temperature Temperature Source Pulse Rate Pulse Rate [1 (Initial Baseline)] Pulse Rate [2] Pulse Rate [5] Pulse Rate [7] Pulse Rate [N] Respiratory Rate Respiratory Rate [1 (Initial Baseline)] Respiratory Rate [2] Respiratory Rate [5] Respiratory Rate [7] Respiratory Rate [N] Blood Pressure Blood Pressure [1 (Initial Baseline)] Blood Pressure [2] Blood Pressure [5] Blood Pressure [7] Blood Pressure [N] Blood Pressure Mean Pulse Ox Oxygen Delivery Method Nasal Cannula Room Air Room Air Oxygen Delivery Method [1 (Initial Baseline)] Oxygen Delivery Method [2] Oxygen Delivery Method [5] Oxygen Delivery Method [6] Oxygen Delivery Method [7] Oxygen Delivery Method [N] Oxygen Flow Rate (L/min) 5 Oxygen Flow Rate (L/min) [1 (Initial Baseline)] Oxygen Flow Rate (L/min) [2] Oxygen Flow Rate (L/min) [5] Oxygen Flow Rate (L/min) [7] Oxygen Flow Rate (L/min) [N] 04/28/22 12:16 04/28/22 13:23 Temperature Temperature Source Pulse Rate 48 L 58 L Pulse Rate [1 (Initial Baseline)] Pulse Rate [2] Pulse Rate [5] Pulse Rate [7] Pulse Rate [N] Respiratory Rate 16 22 H Respiratory Rate [1 (Initial Baseline)] Respiratory Rate [2] Respiratory Rate [5] Respiratory Rate [7] Respiratory Rate [N] Blood Pressure 119/55 L 158/46 H Blood Pressure [1 (Initial Baseline)] Blood Pressure [2] Blood Pressure [5] Blood Pressure [7] Blood Pressure [N] Blood Pressure Mean 76 Pulse Ox 97 96 Oxygen Delivery Method Room Air Oxygen Delivery Method [1 (Initial Baseline)] Oxygen Delivery Method [2] Oxygen Delivery Method [5] Oxygen Delivery Method [6] Oxygen Delivery Method [7] Oxygen Delivery Method [N] Oxygen Flow Rate (L/min) Oxygen Flow Rate (L/min) [1 (Initial Baseline)] Oxygen Flow Rate (L/min) [2] Oxygen Flow Rate (L/min) [5] Oxygen Flow Rate (L/min) [7] Oxygen Flow Rate (L/min) [N] MDM MDM MDM Narrative Medical decision making narrative: Patient had been administered fentanyl by EMS. X-rays were obtained of the right hip and pelvis. I interpreted her initial x-ray which shows a dislocated right hip prosthesis. She was consented for procedural sedation. A total of 200 mg was given in smaller aliquots in order to achieve muscle relaxation and adequate sedation. Right hip was reduced by ED physician using traction and pelvis stabilization. Patient tolerated the procedure well. Postreduction x- ray interpreted by myself shows successful reduction. She had been given fentanyl prior to the procedure, and was given oral oxycodone afterwards. She has tolerated Percocet/Percodan in the past so she is given a prescription for 3 days, and was placed in a knee immobilizer. She states she has a walker at home. She will follow-up with orthopedics in the next 3 to 5 days. She was told of the possibility of repeat dislocation of her right hip. She acknowledges an understanding. Given the successful reduction, I feel she can be discharged safely home with follow-up to orthopedics. Her daughter had inquired about muscle relaxers because patient states she was having muscle spasms. Given her age, I am hesitant to use cyclobenzaprine or any other additional normal muscle relaxer. Once again, I do feel she can be discharged to follow-up with orthopedics. Return instructions were reviewed. Disposition is discharged home in improved and stable condition. Radiography Diagnostic Testing: Clinical Impression(s) from Imaging Studies Hip/Pelvis X-Ray 04/28/22 10:20 IMPRESSION: Superior dislocation of the prosthetic right hip joint. Electronically Signed: Tae Martin MD at 10:47 EDT , Hip/Pelvis X-Ray 04/28/22 12:20 IMPRESSION: Satisfactory reduction of the right prosthetic hip joint. Electronically Signed: Tae Martin MD at 12:38 EDT , Procedures Procedural Sedation 1 (Initial Baseline): Consent Signed: Yes Any Problems With Anesthesia: No You/Your family experience fever (hyperthermia) w/anesthesia: No Sedation medication: Propofol Dose: 200 Route: IV Mallampati Score: Class II ASA Classification: III Discharge Plan Triage Chief Complaint: Lower Extremity Injury ED Provider: Jose Winchester Dx/Rx/DC Orders Clinical Impression: Hip dislocation, right, Status post closed reduction of dislocated total hip prosthesis Instructions: ED Procedural Sedation, (Adult), ED Hip Replace Dislocation Reduc Prescriptions: New oxycodone-acetaminophen [Percocet] 5-325 mg tablet 1 tab PO Q6H PRN (Reason: pain) 3 Days Qty: 12 0RF No Action rehnakju-kqkxyxd-fqxn-lutein Tablet 1 tab PO DAILY acetaminophen [Tylenol 8 Hour] 650 mg tablet extended release 1,300 mg PO Q12H diphenhydramine HCl [Benadryl] 25 mg capsule 25 mg PO QHS PRN (Reason: Allergy Symptoms) calcium citrate 1,000 mg tablet 1,000 mg PO BID ascorbic acid (vitamin C) 1,000 mg capsule 1 g PO BID cholecalciferol (vitamin D3) 50 mcg (2,000 unit) capsule 50 mcg PO BID insulin glargine [Lantus Solostar U-100 Insulin] 100 unit/mL (3 mL) insulin pen 45 unit subcut DAILY Qty: 15 1RF levothyroxine [Levoxyl] 100 MCG tablet 100 mcg PO DAILY Label Comments: THYROID amlodipine 10 mg tablet 10 mg PO DAILY lisinopril 20 mg Tablet 20 mg PO BID Qty: 60 1RF hydralazine 50 mg tablet 50 mg PO TID Eliquis 2.5 mg tablet 2.5 mg PO BID Qty: 60 11RF furosemide 40 mg tablet 40 mg PO DAILY Qty: 180 3RF Hold Instructions: Resume on 04/03/22. until instructed to restart Primary Care Provider: Althea Coker Referrals: Althea Coker MD [Primary Care Provider] - Renato Corado MD [Med Staff - Active Staff] - 3-5 Days Disposition Disposition: Home, Self Care
--- NOTE | 2022-04-28 10:20 | RAD_ITS ---
STUDY: X-RAY - PELVIS AND RIGHT HIP REASON FOR EXAM: Female, 76 years old. Dislocation, pain TECHNIQUE: 2 views of the pelvis and hip. COMPARISON: Comparison is made with prior study 04/23/2014. FINDINGS: The patient is status post bilateral hip replacement. There is evidence of a superior dislocation of the right hip joint. Disc space narrowing and degenerative changes of the lower lumbar spine. 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 Electronically Signed: Tae Martin MD at 10:47 EDT ,
[2022-04-28] MEDS: fentaNYL 100 MCG/2 ML Ampul 50 MCG IV (10:43)
--- NOTE | 2022-04-28 12:20 | RAD_ITS ---
STUDY: X-RAY - PELVIS AND RIGHT HIP REASON FOR EXAM: Female, 76 years old. Post reduction TECHNIQUE: 2 views of the pelvis and hip. COMPARISON: Comparison is made with prior study done earlier in the day. FINDINGS: Satisfactory reduction of the right prosthetic hip joint. RAD/HIP, UNI W/ Pelvis 2-3 Views IMPRESSION: Satisfactory reduction of the right prosthetic hip joint. Electronically Signed: Tae Martin MD at 12:38 EDT ,
[2022-04-28] MEDS: oxyCODONE 5 MG Tablet PO (13:24)
== END 2022-04-28 14:08 | disposition home or self-care (01) ==
PROVIDERS: Emergency Provider Emergency Medicine; PCP Internal Medicine; Visit Provider Emergency Medicine
DX: T84.020A Dislocation of internal right hip prosthesis, initial encounter (principal); I50.32 Chronic diastolic (congestive) heart failure; I13.0 Hypertensive heart and chronic kidney disease with heart failure and stage 1 through stage 4 chronic kidney disease, or unspecified chronic kidney disease; E11.22 Type 2 diabetes mellitus with diabetic chronic kidney disease; I48.91 Unspecified atrial fibrillation; N18.9 Chronic kidney disease, unspecified; Z87.891 Personal history of nicotine dependence; Z79.01 Long term (current) use of anticoagulants; E03.9 Hypothyroidism, unspecified
CPT/HCPCS: 27265; 73502; 99152; 99153; 99285; A4216

== ENCOUNTER → 2022-05-13 | Outpatient (CLI) | payer MEDICARE, OTHER, SELFPAY ==
[2022-05-13 13:53] LABS: Albumin, Serum 3.4 g/dL (3.2-5.0); BUN 80 mg/dL (7-18); BUN/Creat Ratio 33.8 RATIO (10-20); Calcium,Total 9.3 mg/dL (8.5-10.1); Chloride 109 mmol/L (98-107); Creatinine, Serum 2.37 mg/dL (0.55-1.02); EST Glomerular Filtration Rate 21 mL/min (>60); Est Glom Filt Rate - Afr Amer 25 mL/min (>60); Glucose 164 mg/dL (74-106); Phosphorus 3.8 mg/dL (2.5-4.9); Potassium 4.3 mmol/L (3.5-5.1); Sodium Level 142 mmol/L (136-145)
== END | disposition home or self-care (01) ==
LOC: LAB 05-31 05:55
PROVIDERS: PCP Internal Medicine; Referring Provider Internal Medicine Nephrology; Visit Provider Internal Medicine Nephrology
DX: N17.9 Acute kidney failure, unspecified (principal)
CPT/HCPCS: 36415; 80069

== ENCOUNTER → 2022-06-01 | Outpatient (CLI) | payer MEDICARE, OTHER, SELFPAY ==
[2022-06-01 11:45] LABS: Albumin, Serum 3.4 g/dL (3.2-5.0); BUN 62 mg/dL (7-18); Calcium,Total 10.4 mg/dL (8.5-10.1); Chloride 111 mmol/L (98-107); Creatinine, Serum 1.88 mg/dL (0.55-1.02); EST Glomerular Filtration Rate 28 mL/min (>60); Est Glom Filt Rate - Afr Amer 33 mL/min (>60); Glucose 86 mg/dL (74-106); Phosphorus 4.1 mg/dL (2.5-4.9); Potassium 4.2 mmol/L (3.5-5.1); Sodium Level 143 mmol/L (136-145)
== END | disposition home or self-care (01) ==
LOC: LAB 09:26
PROVIDERS: PCP Internal Medicine; Visit Provider Internal Medicine Nephrology
DX: N17.9 Acute kidney failure, unspecified (principal)
CPT/HCPCS: 36415; 80069

== ENCOUNTER 2022-06-11 09:00 | Outpatient (RCR) | payer MEDICARE, OTHER, SELFPAY ==
--- NOTE | 2022-05-17 14:25 | HP.PTEVAL_ITS ---
Patient's Visit Information MIROSLAVA OSWALD is a 76 year old F referred to Physical Therapy by Dr. Renato Corado MD with a diagnosis of R hip dislocation. Date of Evaluation: 05/17/22 Physical Therapist: Jamir Waite, TACOT, OCS, CSCS - Visit Plan Frequency: 3x /Week Duration: 4-6 Weeks Plan: up to 3x/week for 4-6 weeks as needed. We are unsure if patient will be able to get to therapy as family is not home to help her all day. Therefore, she willd iscuss with her family the following three options: 1. 3x/week for 4 weeks with them helping her attend therapy. 2. 1x/week therapy for HEP instruct. either of these two will consist of strengthening of the core, hips and LE and gait training, stair training, heavy door training. 3. Option 3, if she cannot work it out with her family to safely get into outpatient PT, she will contact Dr. Corado and ask for home health script which may be appropriate due to safety concerns exitting the house without family present. She will contact me to let me know there decision and contact Dr. Corado if she needs a home health script. - Subjective I popped my r hip out on April 28 while bending over. It has felt unstable for a while. Bent over to pickle pumper an item and pivotted and it popped out and hurt tremendously. went to ER via ambulance. Gave meds in ER and put her out and put hip back in place. Gave a brace to wear temporarily until went to Dr. Corado. 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 B hips were replaced 8 yrs ago via posterior approach and had been fine until a year ago where she started to feel unstable R. Strength was sapped around that time due to heart issue and could not do much. Moved to [place] with daughter around that time. Has had to move downstairs and has a lift chair now. Pain is not a big issue unless she is in lift chair long time. Then gets B posterior hip pain. Now uses wh walker to get around and fatigues easily. Used LBQC prior to this incident. Wants to get stronger. Sleep is OK, usually wakes up around 3 am and takes tylenol. No regular exercises. Still unable to get dressed by herself, needs to be stronger. Dressed herself prior. has walk in shower and now dtr has to put socks and shoes on and needs help in shower. Has a seat in the shower. Hobbies include knitting, crocheting, reading, puzzles. She can do those now. Has 3 steps and can use walker and side of house. Has wedge for seat and elevated toilet seat. - Pain R post hip Pain Intensity (Out of 10): 0 Pain Intensity Range: 0, 1 - Objective Pt walks back to PT with Wh walker mod I, slow and very tired after 150 feet ambulation but mod I. Chair trasnfers and table trasnfer to semireclined position is I, uses UE to move R LE. Steps prefers to use L and two rails and needs them, will use right when encouraged but weaker and slightly painful. Pt unable to negotiate heavy door to the stair area safely adn would b e unable to do this on her own at home to exit house and climb down three steps with just walker. Family helped her today but will not always be home. this may make her a candidate for home therapy as the funeral car driver will be unable to help with these and she does not drive. reflexes 1/3 patella and achilles. sensation WNL to gross light touch in LE. Hip PROM WFL and symmetrical B, slightly hesitant past 90 on R and with IR. Again, uses UE to move R hip passively. L hip moves well and WFL. strength R hip flexion 3, abd 3, extension, 3, hip is 3+, hesitant to cotnract R. ankle aROM and strength WFL at 4-. Flexibility LE WNL in hips and knees. Balance in standing without walker is good. Tires easily. knee ext and flexion 3+ R and L, no pain - Balance/Special Test Scores Lower Extremity Functional Score: 9 - Goals Goal 1:: Pt feel pain 90% better and 1/10 at worst Goal Time Frame: 2-4 Weeks Goal 2:: Pt ambulate with LBQC mod I with good balance and confidence Goal Time Frame: 2-4 Weeks Goal 3:: Up and down steps reciprocally with one rail Goal Time Frame: 2-4 Weeks Goal 4:: Open heavy door and maneuver around it safe and I Goal Time Frame: 2-4 Weeks - Rehabilitation Potential Physical Therapy Diagnosis: R hip prosthesis dislocation Rehabilitation Potential: Fair - Anticipated Interventions Patient/Client Instruction: Educate patient on: Condition, Plan of Care For the Purpose of:: To decrease pain, To increase ROM, To improve muscle performance and motor function, To increase tolerance to activity/condition/position, To improve ability of physical actions for home/community/work/leisure Therapeutic Exercise to Include: Strength training, Gait and locomotor training For the Purpose of:: To decrease pain, To increase ROM, To improve muscle performance and motor function, To increase tolerance to activity/condition/position, To improve gait and locomotor functions Thank you for the opportunity to evaluate your patient. For Medicare and Medicare HMO plans, please review the plan of care and approve it. It will need to be FAXED BACK to us at [phone] for Medicare purposes. For Medicare only, by signing this I certify the plan of care. Please let me know if there are questions or concerns regarding this plan of care. Physician Signature: Date:
--- NOTE | 2022-07-16 13:55 | HP.PT.NRP ---
MIROSLAVA OSWALD was seen in my office for initial evaluation on 05/17/22. The following Plan of Care was established for this patient: Initial Frequency: 3x /Week Initial Duration: 4-6 Weeks Patient/Client Instruction: Educate patient on: Condition, Plan of Care For the Purpose of:: To decrease pain, To increase ROM, To improve muscle performance and motor function, To increase tolerance to activity/condition/position, To improve ability of physical actions for home/community/work/leisure Therapeutic Exercise to Include: Strength training, Gait and locomotor training For the Purpose of:: To decrease pain, To increase ROM, To improve muscle performance and motor function, To increase tolerance to activity/condition/position, To improve gait and locomotor functions This patient was last seen in our office 06/11/22. Pertinent comments regarding their Physical therapy will appear below: Pt seen 6 visits of POC but neglected to schedule or attend any further visits. At this point, it has been over a month and I will discontinue due to nonattendance. At this point I will be discontinuing this patient from physical therapy. I would be happy to see this patient again in the future if found appropriate by the physician. Thank you! Jamir Waite, DPT, OCS, CSCS Balance/Gait/Functional tests - Balance/Special Test Scores Lower Extremity Functional Score: 9
== END 2022-06-11 19:00 | disposition home or self-care (01) ==
LOC: PT 09:00
PROVIDERS: PCP Internal Medicine; Referring Provider Specialist; Visit Provider Specialist
DX: T84.020D Dislocation of internal right hip prosthesis, subsequent encounter (principal); X58.XXXD Exposure to other specified factors, subsequent encounter; Z96.641 Presence of right artificial hip joint
CPT/HCPCS: 97110; 97161

== ENCOUNTER 2022-06-17 14:13 | Inpatient (IN) | payer MEDICARE, OTHER, SELFPAY ==
[2022-06-17] VITALS (25 sets, daily range): BP systolic 120–183; BP diastolic 48–95; PULSE 58–95; RESP 10–29; TEMP 37.1–37.4; O2SAT 92–96; BMI 37.7; BMI 37.6
--- NOTE | 2022-06-17 14:28 | EKG12_ITS ---
Test Reason : SOB Blood Pressure : / mmHG Vent. Rate : 091 BPM Atrial Rate : 091 BPM P-R Int : 258 ms QRS Dur : 080 ms QT Int : 360 ms P-R-T Axes : 071 061 -40 degrees QTc Int : 442 ms Sinus rhythm with sinus arrhythmia with 1st degree A-V block Marked ST abnormality, possible inferior subendocardial injury Abnormal ECG Confirmed by ADOLFO IBRAHIM, MAVIS ([id number]), editorial director KATYA MEAD ([id number]) on 06/21/2022 1:13:01 PM Referred By: ROGER Confirmed By:MAVIS MATA MD
--- NOTE | 2022-06-17 14:47 | EKG12_ITS ---
Test Reason : Blood Pressure : / mmHG Vent. Rate : 046 BPM Atrial Rate : 300 BPM P-R Int : 000 ms QRS Dur : 086 ms QT Int : 504 ms P-R-T Axes : 000 040 032 degrees QTc Int : 441 ms Junctional rhythm Abnormal ECG When compared with ECG of 18-JUN-2022 04:18, MANUAL COMPARISON REQUIRED, DATA IS UNCONFIRMED Confirmed by ADOLFO IBRAHIM, MAVIS ([id number]), website/blog editor KATYA MEAD ([id number]) on 06/19/2022 7:22:03 AM Referred By: Confirmed By:MAVIS MATA MD
--- NOTE | 2022-06-17 14:51 | EX.ED.DYSGE1 ---
HPI History of Present Illness Chief Complaint: General Illness Detail of Chief Complaint: Shortness of breath and cough Informant: patient Onset/Context/Timing Onset: Days (Tuesday, June 14) Context: Gradual Onset Timing: Continuous Quality: Dyspnea dyspnea on exertion Current Severity: Severe Maximum Severity: Severe Worsened by: Cough, activity Relieved by: Nothing Associated Symptoms Associated Symptoms: Upper respiratory type symptoms Narrative Narrative: Patient is a 76-year-old woman with history of atrial fibrillation, long-term anticoagulant use, heart failure with preserved ejection fraction, secondary pulm hypertension, essential hypertension, hypothyroidism, chronic kidney disease and type 2 diabetes who presents with upper respiratory symptoms with cough and shortness of breath. She is not on home oxygen. She was placed on BiPAP by respiratory therapist after telling me she was in respiratory distress. Pulse ox on 4 L was 95% however she was working significantly to breathe. Patient denies fever, chills night sweats. She does endorse rhinorrhea postnasal drainage sore throat. Cough has been essentially nonproductive. She denies orthopnea or PND. She denies history of PE or DVT. She denies GI or symptoms. Prior similar symptoms: No Recent Illness/Hospitalization: No [facility] Medical History (HFpEF) heart failure with preserved ejection fraction Arthritis Bilateral extracranial carotid artery stenosis Calcification of mitral valve Cataracts, bilateral Chronic kidney disease (CKD) Essential hypertension Hypothyroidism New onset atrial fibrillation (04/01/22) Obesity Secondary pulmonary arterial hypertension Type 2 diabetes mellitus Uterine cancer Home Medications levothyroxine 100 mcg tablet (Levoxyl) 100 mcg PO DAILY thyroid 09/18/13 [History Last Taken 03/31/22] hydralazine 50 mg tablet 50 mg PO TID blood pressure 03/22/22 [History Last Taken 04/01/22] acetaminophen 650 mg tablet,extended release (Tylenol 8 Hour) 1,300 mg PO Q12H QHS 03/24/22 [History Last Taken 03/31/22] diphenhydramine HCl 25 mg capsule (Benadryl) 25 mg PO QHS PRN Allergy Symptoms 03/24/22 [History Last Taken Unknown] ctohakzp-svrgewo-pgzb-lutein tablet 1 tab PO DAILY vitamin 03/24/22 [History Last Taken 04/01/22] amlodipine 10 mg tablet 10 mg PO DAILY BP 04/01/22 [History Last Taken 04/01/22] apixaban 2.5 mg tablet (Eliquis) 2.5 mg PO BID #60 tabs 04/01/22 [Rx Last Taken Unknown] lisinopril 20 mg tablet 20 mg PO BID #60 tabs 04/03/22 [Rx Last Taken Unknown] ascorbic acid (vitamin C) 1,000 mg capsule 1 g PO BID 04/21/22 [History Last Taken Unknown] calcium citrate 1,000 mg tablet 1,000 mg PO BID 04/21/22 [History Last Taken Unknown] cholecalciferol (vitamin D3) 50 mcg (2,000 unit) capsule 50 mcg PO BID 04/21/22 [History Last Taken Unknown] insulin glargine 100 unit/mL (3 mL) subcutaneous pen (Lantus Solostar U-100 Insulin) 45 unit (0.45 mL) subcut DAILY diabetes #15 mL 04/21/22 [Rx Last Taken Unknown] furosemide 40 mg tablet 40 mg PO DAILY #180 tabs 04/22/22 [Rx Last Taken Unknown] oxycodone-acetaminophen 5 mg-325 mg tablet (Percocet) 1 tab PO Q6H PRN pain 3 days #12 tabs 04/28/22 [Rx Last Taken Unknown] Allergy/AdvReac Type Severity Reaction Status Date / Time adhesive tape Allergy Other Verified 04/21/22 15:00 duloxetine Allergy PT UNSURE Verified 04/21/22 15:00 OF REACTION erythromycin base Allergy Rash Verified 04/21/22 15:00 gabapentin Allergy Swelling Verified 04/21/22 15:00 pioglitazone [From Actos] Allergy PT UNSURE Verified 04/21/22 15:00 OF REACTION codeine AdvReac headache Verified 04/21/22 15:00 Family History Father Diabetes Myocardial infarction, Onset Age: 45 Hypertension Aunt Breast cancer Arthritis Brother Myocardial infarction, Onset Age: 50 Mother CVA (cerebral vascular accident) Hypertension Daughter Thyroid disorder Surgical History H/O: hysterectomy History of lobectomy of lung History of total hip arthroplasty Hx of appendectomy Hx of tubal ligation S/P debridement Social History household members: children current occupational status: retired current occupation: nurse Smoking Status: Former smoker quit date: 08/15/1959 Electronic Cigarette Use: not used alcohol intake: current alcohol intake frequency: holidays/special occasions only substance use type: does not use what type of physical activity do you participate in: none do you feel safe at home: Yes ROS ROS ED Constitutional Constitutional ED: Denies chills, fever(s), subjective, sweats or weight loss Eyes Eyes: Denies blurry vision, change in vision or diplopia ENT ENT ED: Denies ear pain, rhinorrhea or sore throat Cardiovascular Cardiovascular: Denies chest pain, orthopnea, palpitations, paroxysmal nocturnal dyspnea or racing heartbeat Respiratory/Chest Respiratory/Chest: Reports cough, dyspnea and dyspnea on exertion; Denies orthopnea or paroxysmal nocturnal dyspnea Gastrointestinal Gastrointestinal: Denies abdominal pain, diarrhea, melena, nausea or vomiting Genitourinary Genitourinary ED: Denies dysuria or hematuria Musculoskeletal Musculoskeletal: Denies arthralgias, back pain or myalgias Neurologic Neurologic: Denies headache(s), paresthesias or weakness Hematologic/Lymphatic Hematologic/Lymphatic: Reports systems reviewed and no addt'l complaints, except as documented EXAM Physical Exam Const Vital Signs: 06/17/22 14:14 06/17/22 14:18 06/17/22 14:18 Temperature 98.8 F 98.8 F Temperature Source Oral Temporal Pulse Rate 94 95 Respiratory Rate 26 H 26 H Respiratory Effort Short of Breath Respiratory Pattern Tachypnea Blood Pressure 120/80 120/80 Blood Pressure Mean 93 93 Pulse Ox 95 95 Oxygen Delivery Method Nasal Cannula Nasal Cannula Oxygen Flow Rate (L/min) 4 4 Fraction of Inspired Oxygen (FIO2) 06/17/22 15:13 06/17/22 14:45 06/17/22 14:46 Temperature Temperature Source Pulse Rate 90 93 Respiratory Rate 26 H 23 H Respiratory Effort Respiratory Pattern Blood Pressure Blood Pressure Mean Pulse Ox 96 95 Oxygen Delivery Method Nasal Cannula Oxygen Flow Rate (L/min) 4 Fraction of Inspired Oxygen (FIO2) 30 06/17/22 15:47 06/17/22 15:47 Temperature 99.3 F H Temperature Source Temporal Pulse Rate 94 94 Respiratory Rate 20 H 24 H Respiratory Effort Respiratory Pattern Blood Pressure 180/55 H 180/55 H Blood Pressure Mean 96 96 Pulse Ox 96 96 Oxygen Delivery Method Bi-pap Bi-pap Oxygen Flow Rate (L/min) Fraction of Inspired Oxygen (FIO2) 30 30 Positive well nourished, well developed and obese General Appearance ED: well developed; Negative for cyanotic, diaphoretic, NAD or pallor Nutritional Appearance: obese HEENT Reports moist mucous membranes HEENT Narrative: Ears normal. Nares patent. Unable to perform exam of the posterior pharynx presents patient is on BiPAP. Eyes PERRL and EOMs intact bilaterally General Eye ED: Negative for scleral icterus Neck no JVD Neck Narrative: Trachea is midline. Resp No normal respiratory effort and No clear to auscultation bilaterally Auscultation: rales diffuse (Expiratory rales are worse than inspiratory rales.) Cardio regular rate, regular rhythm, S1 normal heart sound, S2 normal heart sound and no murmurs GI normal to inspection, nondistended, normoactive bowel sounds, non-tender and non-distended; Negative for hepatosplenomegaly Palpation: soft Back/Spine no CVA tenderness Thoracic Spine / Upper Back: Negative for thoracic spinal tenderness Lumbar Spine / Lower Back: Negative for lumbar spinal tenderness Extremity normal to inspection General Extremety ED: Negative for edema or tenderness General Extremity: Negative for edema Neuro oriented x3, CN's II-XII intact bilaterally and no sensory deficits noted Sensorium / Orientation: alert Motor Exam: strength 5/5 throughout Psych mental status grossly normal Skin no rashes or lesions noted and no wounds General Skin Exam: Negative for jaundice or pallor MDM MDM MDM Narrative Medical decision making narrative: Patient with respiratory distress. Concern patient has pneumonia. This may represent congestive heart failure. To evaluate patient's presentation with an EKG, chest x-ray, appropriate blood work to assess white count, rule out anemia, determine renal function since her history of chronic renal disease and blood sugar/anion gap since she is diabetic. Will treat her rales with 1 aerosol treatment. She was placed on BiPAP. Will obtain ABG to determine if patient has CO2 retention. She does have respiratory failure with hypoxia since she is requiring oxygen. Patient has history of failure due to pulmonary edema due to non ST elevation CO. We will treat with nitro, heparin. Per prior discussions with Dr. Kobi Blanca is on for cardiology he prefers heparin versus Lovenox for anticoagulation. She also received aspirin. Lab Data Attestation: I reviewed the patient's lab results. Lab results narrative: Count is slightly elevated. She does have mild anemia with normal indices. Basic metabolic panel is remarkable for an elevated BUN/creatinine of 79 and 2.12. Glucose elevated to 30. CO2 and anion gap are normal. Lactate elevated 2.5 suspect this is due to hypoxia. Troponin is 551. Suspect patient's abnormal respiratory findings are due to congestive heart failure from non-ST elevation CO. Suspect lactate is due to hypoxia. Labs: Laboratory Results - last 24 hr 06/17/22 06/17/22 06/17/22 14:02 14:02 14:02 WBC 11.1 H RBC 3.35 L Hgb 9.8 L Hct 30.0 L MCV 89.6 MCH 29.3 MCHC 32.7 RDW Std Deviation 63.2 H RDW Coeff of Nael 19.4 H Plt Count 139 L Immature Gran % (Auto) 1.500 H Neut % (Auto) 85.3 H Lymph % (Auto) 4.8 L Gulf % (Auto) 7.9 Eos % (Auto) 0.1 Baso % (Auto) 0.4 Absolute Neuts (auto) 9.5 H Absolute Lymphs (auto) 0.53 L Nucleated RBC % 0 Differential Comment SCANNED Sodium 141 Potassium 3.7 Chloride 106 Carbon Dioxide 24.0 Anion Gap 11 BUN 79 H Creatinine 2.12 H Estim Creat Clear Calc 15.71 Est GFR (MDRD) Af Amer 29 L Est GFR (MDRD) Non-Af 24 L BUN/Creatinine Ratio 37.3 H Glucose 230 H Lactic Acid 2.5 H* Calcium 9.6 Total Bilirubin 1.10 H AST 36 ALT 48 Alkaline Phosphatase 52 Troponin I High Sens 551 H* Total Protein 8.0 Albumin 3.5 Globulin 4.5 H Albumin/Globulin Ratio 0.8 L ABG Data ABG results: ABG 06/17/22 15:41 Specimen Type ART Sample Site R Radial pH 7.46 H Bicarbonate Actual 25.5 Total CO2 27 Base Excess 2 O2 Saturation 95 O2 % 30 ABG pCO2 35.7 ABG pO2 73 L Merlin Test Positive Respiration Rate 10 O2 Delivery Device BiPAP Vent Mode BiLevel POC PEEP 6 Clinical Comments / 10 30% Radiography Chest X-Ray - ED: 1 View and Read by ED Physician (Borderline cardiomegaly. Patient has evidence of CHF/pulmonary edema.) EKG Initial EKG: Attestation: I personally reviewed and interpreted this EKG as follows: Interpretation: Sinus Rhythm (Ventricular rate is 91. WA interval is prolonged at 208 ms. There is concerns with a first-degree heart block. QRS duration is 80 ms. QT duration 3 and 60 ms. There is artifact noted.) Critical Care Time Critical Care Time: Yes Critical care time (excluding procedures): 30-74 minutes (37), Including time spent: (History, physical, documentation, review of prior records), Discussing w/Patient &/or Family/Production Sorter, Discussing w/Consultants, Arranging Admission or Transfer and Performing Direct Patient Care at Bedside Discharge Plan Triage Chief Complaint: General Illness ED Provider: Tristan Larios Dx/Rx/DC Orders Clinical Impression: Acute respiratory failure with hypoxia, Chronic kidney disease (CKD), Essential hypertension, Type 2 diabetes mellitus, Non-ST elevated myocardial infarction, Pulmonary edema Prescriptions: No Action omscrnup-oxnhxwq-puhu-lutein Tablet 1 tab PO DAILY acetaminophen [Tylenol 8 Hour] 650 mg tablet extended release 1,300 mg PO Q12H diphenhydramine HCl [Benadryl] 25 mg capsule 25 mg PO QHS PRN (Reason: Allergy Symptoms) calcium citrate 1,000 mg tablet 1,000 mg PO BID ascorbic acid (vitamin C) 1,000 mg capsule 1 g PO BID cholecalciferol (vitamin D3) 50 mcg (2,000 unit) capsule 50 mcg PO BID insulin glargine [Lantus Solostar U-100 Insulin] 100 unit/mL (3 mL) insulin pen 45 unit subcut DAILY Qty: 15 1RF levothyroxine [Levoxyl] 100 MCG tablet 100 mcg PO DAILY Label Comments: THYROID amlodipine 10 mg tablet 10 mg PO DAILY lisinopril 20 mg Tablet 20 mg PO BID Qty: 60 1RF oxycodone-acetaminophen [Percocet] 5-325 mg tablet 1 tab PO Q6H PRN (Reason: pain) 3 Days Qty: 12 0RF hydralazine 50 mg tablet 50 mg PO TID Eliquis 2.5 mg tablet 2.5 mg PO BID Qty: 60 11RF furosemide 40 mg tablet 40 mg PO DAILY Qty: 180 3RF Hold Instructions: Resume on 04/03/22. until instructed to restart Primary Care Provider: Althea Coker Referrals: Althea Coker MD [Primary Care Provider] - Disposition Disposition: Acute Care Hospital [facility]
[2022-06-17] MEDS: Albuterol 2.5 MG/3 ML VIAL.NEB. INHALATION (15:12)
[2022-06-17 15:16] LABS: Absolute Lymphocyte Count 0.53 X10^3/uL (0.83-4.51); Absolute Neutrophil Count 9.5 X10^3/uL (2.0-7.7); Basophil# 0.04 X10^3/uL; Basophil% 0.4 % (0-1); Eosinophil# 0.01 X10^3/uL; Eosinophils% 0.1 % (0-5); Hemoglobin 9.8 g/dL (12.0-15.0); Lymphocyte # 0.53 X10^3/ul (0.83-4.51); Lymphocyte % 4.8 % (19-41); Mean Corp Hgb Conc 32.7 g/dL (32-36); Mean Corpuscular Hgb 29.3 pg (27.0-32.0); Mean Corpuscular Volume 89.6 fL (81-99); Monocyte# 0.88 X10^3/uL; Monocyte% 7.9 % (0-10); NRBC Flagged by Analyzer 0 % (0-5); Neutrophil # 9.48 X10^3/uL (2.7-7.7); Neutrophil % 85.3 % (47-70); POSITIVE DIFFERENTIAL YES; Platelet Count 139 K/mm3 (150-450); RBC Distribution Width CV 19.4 % (11.6-14.6); RBC Distribution Width SD 63.2 fl (35.1-43.9); Red Blood Count 3.35 M/mm3 (4.2-5.4); White Blood Count 11.1 K/mm3 (4.4-11.0)
[2022-06-17 15:18] LABS: Differential Indicated SCAN CRITERIA MET
[2022-06-17 15:25] LABS: Lactic Acid 2.5 mmol/L (0.4-1.9)
[2022-06-17 15:40] LABS: Differential Comment SCANNED
[2022-06-17 15:46] LABS: Allen Test Positive; Base Excess 2 mmol/L (-2 to +2); Bicarbonate 25.5 mmol/L (22-26); Blood Gas Specimen Type ART; FI02 30; Mode BiLevel; O2 Delivery Device BiPAP; PEEP 6; PO2 73 mmHG (75-100); RR 10; SITE R Radial; SO2 95 % (95-99); Total Carbon Dioxide 27 mmol/L; pCO2 35.7 mmHg (35-45); pH 7.46 (7.35-7.45)
[2022-06-17 15:53] LABS: ALB/GLOB Ratio 0.8 RATIO (0.9-2.4); AST(SGOT) 36 U/L (15-37); Alanine Aminotransfer ALT/SGPT 48 U/L (13-56); Albumin, Serum 3.5 g/dL (3.2-5.0); Alkaline Phosphatase 52 U/L (45-117); Anion Gap 11 (5-15); BUN 79 mg/dL (7-18); BUN/Creat Ratio 37.3 RATIO (10-20); Calcium,Total 9.6 mg/dL (8.5-10.1); Chloride 106 mmol/L (98-107); Creatinine, Serum 2.12 mg/dL (0.55-1.02); EST Glomerular Filtration Rate 24 mL/min (>60); Est Glom Filt Rate - Afr Amer 29 mL/min (>60); Estimated Creatinine Clearance 15.71 ml/min; Globulin 4.5 g/dL (2.2-4.2); Glucose 230 mg/dL (74-106); Potassium 3.7 mmol/L (3.5-5.1); Sodium Level 141 mmol/L (136-145); Troponin-I HS 551 pg/mL (3.0-54.0)
--- NOTE | 2022-06-17 15:55 | RAD_ITS ---
STUDY: X-RAY CHEST REASON FOR EXAM: Female, 76 years old. Respiratory failure TECHNIQUE: Single AP portable view of the chest. COMPARISON: 04/02/2022 FINDINGS: Increased alveolar opacities in both lung bases consistent with worsening bibasilar pneumonia. There is no demonstrated pleural abnormality. There is moderate cardiac enlargement. Normal mediastinum and maddy. Normal visualized pulmonary arteries. Normal visualized aortic arch and descending thoracic aorta. Normal visualized thoracic spine. Normal visualized ribs, clavicles, and shoulders. There is no demonstrated abnormality of the visualized soft tissue structures of the upper abdomen. RAD/Chest 1 View (Portable) IMPRESSION: Worsening bibasilar pneumonia. Electronically Signed: Mani Wells MD at 16:06 EDT ,
--- NOTE | 2022-06-17 15:57 | ED.RN ---
DR. JJ INFORMED OF SEPSIS ALERT. PER DR. JJ PT IS NOT A SEPSIS CONCERN AT THIS TIME.
--- NOTE | 2022-06-17 16:05 | PCM.HP.STD ---
HPI - General General Date of Admission: 06/17/22 Date of Service: 06/17/22 Chief Complaint: Dyspnea, hypertensive, edematous. HPI Narrative The patient is a 76 y/o F w/ PMHx: CKD stage IV, PAF on eliquis, Hypothyroidism, Chronic Diastolic CHF, HTN, HLD, Diabetes mellitus type II, Carotid disease, Secondary Pulmonary HTN who presents to the [facility] ED on 06/17/22 with history of recent URI type symptoms with cough and dyspnea, rhinorrhea and postnasal drip as well as sore throat although she does report the cough has been nonproductive with recent outpatient prednisone therapy initiation on Tuesday however since then she has had significantly elevated blood pressures as well as blood sugars above her baseline and continued worsening respiratory status with significant shortness of breath, increased lower extremity swelling and orthopnea prompting transition to the ED for evaluation with EMS noted temperature of 101.5 although repeat upon ED arrival afebrile. Work-up in the ED included T99.3, heart rate 94, respiratory rate 24, BP 180/55, 96% on BiPAP 30%, CBC with WBC 11.1, hemoglobin 9.8, MCV 89.6, platelet 139 with significant left shift and lymphopenia, ABG with pH 7.46, PO2 73 performed on BiPAP, CMP with BUN/creatinine 79/2.12, glucose 230, lactic acid 2.5, total bilirubin 1.10, troponin 551, chest x-ray with bibasilar pneumonia, rapid COVID antigen and influenza negative, EKG with SR with lateral changes but no acute evidence of ischemia. In the ED patient administered NG, heparin bolus with drip then deferred as patient did eventually note that she did take her a.m. Eliquis regimen, lasix 20 mg IV, asa 324 mg po x 1, albuterol. Upon admission patient case reviewed with desulfurizer machine on-call Dr. Colon. FORMERLY [facility] Medical History (HFpEF) heart failure with preserved ejection fraction Arthritis Bilateral extracranial carotid artery stenosis Calcification of mitral valve Cataracts, bilateral Chronic kidney disease (CKD) Essential hypertension Hypothyroidism New onset atrial fibrillation (04/01/22) Obesity Secondary pulmonary arterial hypertension Type 2 diabetes mellitus Uterine cancer Home Medications levothyroxine 100 mcg tablet (Levoxyl) 100 mcg PO DAILY thyroid 09/18/13 [History Last Taken 06/17/22] hydralazine 50 mg tablet 50 mg PO TID blood pressure 03/22/22 [History Last Taken 06/17/22] acetaminophen 650 mg tablet,extended release (Tylenol 8 Hour) 1,300 mg PO Q12H QHS 03/24/22 [History Last Taken 06/17/22] diphenhydramine HCl 25 mg capsule (Benadryl) 25 mg PO QHS PRN Allergy Symptoms 03/24/22 [History Last Taken 06/17/22] vsvzinfj-prvpghg-sqxa-lutein tablet 1 tab PO DAILY vitamin 03/24/22 [History Last Taken 06/17/22] amlodipine 10 mg tablet 10 mg PO DAILY BP 04/01/22 [History Last Taken 06/17/22] apixaban 2.5 mg tablet (Eliquis) 2.5 mg PO BID #60 tabs 04/01/22 [Rx Last Taken 06/17/22] ascorbic acid (vitamin C) 1,000 mg capsule 1 g PO BID 04/21/22 [History Last Taken 06/17/22] calcium citrate 1,000 mg tablet 1,000 mg PO BID 04/21/22 [History Last Taken 06/17/22] cholecalciferol (vitamin D3) 50 mcg (2,000 unit) capsule 50 mcg PO BID 04/21/22 [History Last Taken 06/17/22] furosemide 40 mg tablet 40 mg PO DAILY #180 tabs 04/22/22 [Rx Last Taken 06/17/22] insulin glargine 100 unit/mL (3 mL) subcutaneous pen (Lantus Solostar U-100 Insulin) 40 unit subcut DAILY diabetes 06/17/22 [History Last Taken 06/14/22] lisinopril 20 mg tablet 20 mg PO QHS 06/17/22 [History Last Taken 06/16/22] Allergy/AdvReac Type Severity Reaction Status Date / Time adhesive tape Allergy Other Verified 04/21/22 15:00 duloxetine Allergy PT UNSURE Verified 04/21/22 15:00 OF REACTION erythromycin base Allergy Rash Verified 04/21/22 15:00 gabapentin Allergy Swelling Verified 04/21/22 15:00 pioglitazone [From Actos] Allergy PT UNSURE Verified 04/21/22 15:00 OF REACTION codeine AdvReac headache Verified 04/21/22 15:00 Family History Father Diabetes Myocardial infarction, Onset Age: 45 Hypertension Aunt Breast cancer Arthritis Brother Myocardial infarction, Onset Age: 50 Mother CVA (cerebral vascular accident) Hypertension Daughter Thyroid disorder Surgical History H/O: hysterectomy History of lobectomy of lung History of total hip arthroplasty Hx of appendectomy Hx of tubal ligation S/P debridement Social History household members: children current occupational status: retired current occupation: nurse Smoking Status: Former smoker quit date: 08/15/1959 Electronic Cigarette Use: not used alcohol intake: current alcohol intake frequency: holidays/special occasions only substance use type: does not use what type of physical activity do you participate in: none do you feel safe at home: Yes ROS ROS Narrative Admission Review of Systems: CONSTITUTIONAL: No weight loss, fever, + chills, weakness or fatigue. HEENT: + Congestion, rhinorrhea, sore throat. Eyes: No visual loss, blurred vision, double vision or yellow sclerae. Ears, Nose, Throat: No hearing loss, sneezing. SKIN: No rash or itching, lesions, wounds. CARDIOVASCULAR: + Edema, orthopnea no chest pain, chest pressure or chest discomfort, palpitations, syncopal events. RESPIRATORY:+ shortness of breath, cough without marked sputum, No wheezing, hemoptysis. GASTROINTESTINAL: No anorexia, nausea, vomiting or diarrhea, abdominal pain, melena, BRBPR. GENITOURINARY: No dysuria, frequency, urgency or retention. NEUROLOGICAL: No headache, dizziness, syncope, paralysis, ataxia, numbness or tingling in the extremities, focal weakness, change in bowel or bladder control, seizure. MUSCULOSKELETAL:+ muscle, back pain, joint pain or stiffness. HEMATOLOGIC:+ anemia, bleeding or bruising. LYMPHATICS: No enlarged nodes. No history of splenectomy. PSYCHIATRIC:+ history of depression or anxiety. ENDOCRINOLOGIC: No reports of sweating, cold or heat intolerance. No polyuria or polydipsia. ALLERGIES: No history of asthma, hives, eczema or rhinitis. Vital Signs Vital Signs Vital Signs: 06/17/22 14:14 06/17/22 14:18 06/17/22 14:18 Temperature 98.8 F 98.8 F Temperature Source Oral Temporal Pulse Rate 94 95 Respiratory Rate 26 H 26 H Respiratory Effort Short of Breath Respiratory Pattern Tachypnea Blood Pressure 120/80 120/80 Blood Pressure Mean 93 93 Pulse Ox 95 95 Oxygen Delivery Method Nasal Cannula Nasal Cannula Oxygen Flow Rate (L/min) 4 4 Fraction of Inspired Oxygen (FIO2) 06/17/22 15:13 06/17/22 14:45 06/17/22 14:46 Temperature Temperature Source Pulse Rate 90 93 Respiratory Rate 26 H 23 H Respiratory Effort Respiratory Pattern Blood Pressure Blood Pressure Mean Pulse Ox 96 95 Oxygen Delivery Method Nasal Cannula Oxygen Flow Rate (L/min) 4 Fraction of Inspired Oxygen (FIO2) 30 06/17/22 15:47 06/17/22 15:47 Temperature 99.3 F H Temperature Source Temporal Pulse Rate 94 94 Respiratory Rate 20 H 24 H Respiratory Effort Respiratory Pattern Blood Pressure 180/55 H 180/55 H Blood Pressure Mean 96 96 Pulse Ox 96 96 Oxygen Delivery Method Bi-pap Bi-pap Oxygen Flow Rate (L/min) Fraction of Inspired Oxygen (FIO2) 30 30 Weight Weight: 196 lb 6.91 oz Body Mass Index (BMI) 37.7 Physical Exam Narrative Physical Examination: General: Awake, alert, oriented x 3, fatigued, following commands, seated upright in ED bed, BiPAP in place, respiratory distress lessening. Skin: Normal color, normal turgor, no icterus, no cyanosis except occasional staged ecchymoses and bilateral lower extremity chronic venous stasis skin changes. HEENT: AT/NC, EOMI, PERRLA, mildly dry MM, BiPAP in place, no carotid bruits, + JVD noted. Lungs: Significantly diminished at the bases, significant coarse rhonchorous sounds bilaterally, Rales, increased work of breathing and some accessory muscle usage although improving since initial ED presentation, BiPAP in place. Heart: Mildly tachycardic with regular rhythm; no gallop, rub audible. Abdomen: Soft, obese, NTTP, no obvious distention, distant normal bowel sounds, no HSM. Extremities: No cyanosis, no clubbing, bilateral pedal to proximal goff 2+ pitting edema, significant tenderness palpation bilaterally. Neurological: Patient awake, alert, oriented as noted, cognitive function improving given improvement in respiratory status, nearing baseline intact; pupils equally reactive to light and accommodation, cranial nerves II-XII grossly normal, moving all 4 extremities, no focal deficits, strength severely globally decreased secondary to acute presentation. Psychiatric: Affect appears fatigued, respiratory distress improving, no acute evidence of depressive or anxiety feelings. Results Lab / Micro Data Result Diagrams: 06/17/22 14:02 06/17/22 14:02 Labs: Laboratory Results - last 24 hr 06/17/22 14:02: WBC 11.1 H, RBC 3.35 L, Hgb 9.8 L, Hct 30.0 L, MCV 89.6, MCH 29.3, MCHC 32.7, RDW Std Deviation 63.2 H, RDW Coeff of Nael 19.4 H, Plt Count 139 L, Immature Gran % (Auto) 1.500 H, Neut % (Auto) 85.3 H, Lymph % (Auto) 4.8 L, Emanuel % (Auto) 7.9, Eos % (Auto) 0.1, Baso % (Auto) 0.4, Absolute Neuts (auto) 9.5 H, Absolute Lymphs (auto) 0.53 L, Nucleated RBC % 0, Differential Comment SCANNED 06/17/22 14:02: Sodium 141, Potassium 3.7, Chloride 106, Carbon Dioxide 24.0, Anion Gap 11, BUN 79 H, Creatinine 2.12 H, Estim Creat Clear Calc 15.71, Est GFR (MDRD) Af Amer 29 L, Est GFR (MDRD) Non-Af 24 L, BUN/Creatinine Ratio 37.3 H, Glucose 230 H, Calcium 9.6, Total Bilirubin 1.10 H, AST 36, ALT 48, Alkaline Phosphatase 52, Troponin I High Sens 551 H*, Total Protein 8.0, Albumin 3.5, Globulin 4.5 H, Albumin/Globulin Ratio 0.8 L 06/17/22 14:02: Lactic Acid 2.5 H* Micro: Microbiology 06/17/22 14:57 Nasal Secretion SARS-CoV-2 & FLU Antigen (Rapid) - Final ABG Data ABG results: ABG 06/17/22 15:41 Specimen Type ART Sample Site R Radial pH 7.46 H Bicarbonate Actual 25.5 Total CO2 27 Base Excess 2 O2 Saturation 95 O2 % 30 ABG pCO2 35.7 ABG pO2 73 L Merlin Test Positive Respiration Rate 10 O2 Delivery Device BiPAP Vent Mode BiLevel POC PEEP 6 Clinical Comments 07/20 10 30% Assessment & Plan Assessment/Plan (1) Acute respiratory failure with hypoxia: PLAN: Plan The patient is a 76 y/o F w/ PMHx: CKD stage IV, PAF on eliquis, Hypothyroidism, Chronic Diastolic CHF, HTN, HLD, Diabetes mellitus type II, Carotid disease, Secondary Pulmonary HTN who presents to the [facility] ED on 06/17/22 with history of recent URI type symptoms with cough and dyspnea, rhinorrhea and postnasal drip as well as sore throat although she does report the cough has been nonproductive with recent outpatient prednisone therapy initiation on Tuesday however since then she has had significantly elevated blood pressures as well as blood sugars above her baseline and continued worsening respiratory status with significant shortness of breath, increased lower extremity swelling and orthopnea prompting transition to the ED. #1. Acute Hypoxic Respiratory Failure, Multifactorial, secondary to Acute on Chronic Diastolic CHF exacerbation/Pulmonary edema, complicated byr recent Acute Viral Syndrome: Patient administered IV lasix in the ED and started on IV NG, maintained on BIPAP, will admit to ICU, will request cardiology and pulmonary/computer support specialist involvement, maintain on cardiac telemetry, obtain cardiac enzyme series, obtain serial EKGs, continue IV lasix diuresis, monitor I/Os, maintain on intake restriction, continue medical therapy, obtain TSH and magnesium level. Most recent ECHO noted 04/01/2022 with EF 60 to 65% mild to moderate MR, mild TR with no change from prior echo a year earlier however given acute presentation with NSTEMI will also obtain repeat echocardiogram, will plan to hold Eliquis and at next dose due we will then initiate heparin drip. Given recent vague URI type symptoms we will additionally obtain COVID PCR and full respiratory panel to be cautious. Snug samantha wraps will be placed. #2. Acute NSTEMI suspected type II secondary to Demand given #1: EKG in ED w/ sinus rhythm with nonspecific changes with no acute evidence of ischemia, CXR w/ significant volume overload. Trop elevated, 551. Will maintain on a monitored bed, continue serial cardiac enzymes and EKGs, obtain magnesium level upon admission, start Heparin drip, continue medical management, ECHO requested given this acute presentation with most recent as noted above. Cardiology consulted. ASA, NG, morphine. #3. Lactic acidosis, suspected secondary to acute hypoxemia: Admission LA 2.5, likely secondary to acute presentation #1, #2 with significant hypoxemia, continue to trend per facility protocol, deferring any IV fluids given need for diuresis as noted. #4. Diabetes mellitus type II: Hold oral home regimen, continue home insulin regimen, ADA diet, accu checks w/ ISS. #5. PAF: Not on any rate or rhythm agent per current list, patient notes taking her apixaban this morning, temporarily holding as noted with plan transition to heparin drip at next dose due this evening. #6. Hypertension: Continue home regimen including amlodipine, lisinopril, hydralazine, IV Lasix as noted, IV nitroglycerin with hold on oral regimen if necessary given these IV usage is, PRN hydralazine. #7. Hyperlipidemia: Not on regimen, will add low-dose, FLP in AM. #8. Hypothyroidism: Continue home synthroid regimen, TSH pending. #9. Chronic Kidney Disease Stage IV: Admission BUN/Cr 79/2.12, baseline renal function primarily 1.8 to 2.0 although 05/13/2022 had been up to 2.37, repeat BMP in AM. #10. Chronic normocytic anemia: Admission hemoglobin 9.8, patient has from review of trends of been decreasing from baseline prior 11.9 down since December 2021 with current baseline primarily 9 range since March, guaiac requested to be cautious, continue to trend CBC. #11. DVT prophylaxis: SCDs, holding patient home Eliquis dose and will transition at next dose due to heparin drip. #12. CODE status: Patient DAVID is her daughter and living will is she believes in place. Discussed CODE status at length including difference between FULL code, DNR-CCA and DNR-CC status. Following discussions about the differences in these status, requested Full Code status. Advanced Care Planning Face to Face Time: 16 minutes. Charges/Coding Visit Charges Inpatient E&M: 20351 Init Hosp L3 Procedures Hospitalists Procedures: 55028 Advncd Care Plan 30 Min
[2022-06-17 16:16] LABS: International Normalized Ratio 1.6; Prothrombin Time (Protime)PT. 18.3 SECONDS (11.7-14.9)
[2022-06-17 16:17] LABS: Partial Thromboplast Time 37.7 Seconds (24.1-36.2)
[2022-06-17] MEDS: Heparin Injection (Vial) 5,000 UNIT/ML VIAL 6000 UNIT IV (16:20)
[2022-06-17] MEDS: Furosemide 20 MG/2 ML VIAL IV (16:20)
[2022-06-17] MEDS: Nitroglycerin Infusion 250 ML 3 MG CONT INF (16:29)
[2022-06-17] MEDS: Aspirin 81 MG TAB.CHEW 324 MG PO (16:55)
--- NOTE | 2022-06-17 17:03 | ECHOD_ITS ---
Reason For Study: NSTEMI Procedure This was a 2D Doppler, Color Flow transthoracic echocardiogram. Exam performed in department. Left Ventricle Normal left ventricle. The estimated ejection fraction is 55-60 %. Right Ventricle Normal right ventricle. Normal systolic function. Atria The left atrium is moderately enlarged. Normal right atrium. Mitral Valve There is severe mitral annular calcification. Mild (1+) mitral valve insufficiency. Tricuspid Valve Normal tricuspid valve. Aortic Valve Mild diffuse aortic valve calcification. Mild (1+) aortic valve insufficiency. Pulmonic Valve The pulmonic valve is not well visualized. Great Vessels Normal aortic root. Pericardium/Pleural No pericardial effusion. MMode/2D Measurements & Calculations RVDd: 3.5 cm Ao root diam: 3.0 cm LAV(MOD-bp): 109.5 ml LAV(MOD-bp) Indexed: 60.8 ml/m2 LAV(MOD-sp2): 106.6 ml LAV(MOD-sp4): 104.2 ml SV(MOD-sp4): 52.5 ml SV(sp4-el): 56.0 ml LVAd ap4: 25.7 cm2 LVLd ap4: 7.0 cm EDV(MOD-sp4): 76.7 ml EDV(sp4-el): 80.4 ml LVAs ap4: 12.7 cm2 LVLs ap4: 5.6 cm ESV(MOD-sp4): 24.3 ml ESV(sp4-el): 24.4 ml EF(MOD-sp4): 68.4 % EF(sp4-el): 69.7 % LA A4 area: 30.0 cm2 LA dimension(2D): 5.5 cm RA A4 area: 22.1 cm2 Time Measurements MV dec time: 0.24 sec Doppler Measurements & Calculations MV E max martina: 180.7 cm/sec MV V2 max: 179.6 cm/sec MV dec slope: 773.2 cm/sec2 MV A max martina: 103.1 cm/sec MV max P.0 mmHg MV E/A: 1.8 MV V2 mean: 102.8 cm/sec MV mean P.2 mmHg MV V2 VTI: 58.5 cm Ao V2 max: 186.0 cm/sec LV V1 max: 157.0 cm/sec PA V2 max: 129.8 cm/sec Ao max P.9 mmHg LV V1 max P.0 mmHg PA V2 mean: 84.2 cm/sec Ao V2 mean: 132.8 cm/sec LV V1 mean P.8 mmHg Ao mean P.0 mmHg LV V1 mean: 113.9 cm/sec Ao V2 VTI: 48.9 cm LV V1 VTI: 36.9 cm TR max martina: 306.9 cm/sec TR max P.7 mmHg ECHO/Echo Complete Interpretation Summary The estimated ejection fraction is 55-60 %. Normal LV systolic functionNo significant change from previous echo Ordering Physician: Margarita Jones Performed By: Eliza Noguera RCS
[2022-06-17] MEDS: Ondansetron 4 MG/2 ML Vial IV (17:31)
[2022-06-17 18:15] LABS: Procalcitonin 5.23 ng/mL (0.00-0.09)
[2022-06-17] MEDS: Furosemide 40 MG/4 ML Vial IV (18:45)
[2022-06-17] MEDS: Nitroglycerin Infusion 250 ML 3 MG IV (18:47)
[2022-06-17 19:13] LABS: Troponin-I HS 577 pg/mL (3.0-54.0)
[2022-06-17] MEDS: Atorvastatin Calcium 10 MG Tablet PO (21:29)
[2022-06-17] MEDS: hydrALAZINE 50 MG Tablet PO (21:29)
[2022-06-17] MEDS: Lisinopril 20 MG Tablet PO (21:30)
[2022-06-17] MEDS: 0.9% Saline Lock 10 ML Syringe IV (21:40)
[2022-06-17 22:00] LABS: Bedside Glucose 76 mg/dL (74-106)
[2022-06-17 22:14] LABS: Partial Thromboplast Time 38.1 Seconds (24.1-36.2)
[2022-06-17 22:21] LABS: Troponin-I HS 657 pg/mL (3.0-54.0)
[2022-06-17] MEDS: HEPARIN/D5w 25,000 UNITS 25,000 UNITS/250 ML IV.SOLN. 12 UNITS CONT INF (23:19)
[2022-06-17] MEDS: Heparin Injection (Vial) 5,000 UNIT/ML VIAL IV (23:22)
[2022-06-18] VITALS (26 sets, daily range): BP systolic 112–146; BP diastolic 44–89; PULSE 42–70; RESP 10–21; TEMP 36.5–36.8; O2SAT 91–98
[2022-06-18] MEDS: Acetaminophen 325 MG Tablet 650 MG PO ×4 (00:01→23:34)
--- NOTE | 2022-06-18 04:18 | EKG12_ITS ---
Test Reason : Blood Pressure : / mmHG Vent. Rate : 043 BPM Atrial Rate : 288 BPM P-R Int : 000 ms QRS Dur : 090 ms QT Int : 510 ms P-R-T Axes : 000 040 040 degrees QTc Int : 430 ms Junctional bradycardia Abnormal ECG No previous ECGs available Confirmed by ADOLFO IBRAHIM, MAVIS ([id number]), food expeditor KATYA MEAD ([id number]) on 06/19/2022 7:24:04 AM Referred By: Confirmed By:MAVIS MATA MD
--- NOTE | 2022-06-18 04:47 | NURSING ---
RN notified Dr. Olivares of pts consistent HR in the 40s and going as low as 39. Per Pt her heart gets into the 40s when she sleeps at time. Pt is currently asymptomatic. MD ordered EKG, EKG completed and verified with MD. MD said to continue to monitor pt and to notify if they become symptomatic.
[2022-06-18] MEDS: Levothyroxine 100 MCG Tablet PO (05:33)
[2022-06-18] MEDS: hydrALAZINE 50 MG Tablet PO ×3 (05:34→21:57)
[2022-06-18 05:38] LABS: Absolute Lymphocyte Count 0.75 X10^3/uL (0.83-4.51); Absolute Neutrophil Count 4.2 X10^3/uL (2.0-7.7); Basophil# 0.03 X10^3/uL; Basophil% 0.5 % (0-1); Eosinophil# 0.08 X10^3/uL; Eosinophils% 1.4 % (0-5); Hematocrit 25.8 % (37-47); Hemoglobin 8.3 g/dL (12.0-15.0); Lymphocyte # 0.75 X10^3/ul (0.83-4.51); Lymphocyte % 12.9 % (19-41); Mean Corp Hgb Conc 32.2 g/dL (32-36); Mean Corpuscular Hgb 29.4 pg (27.0-32.0); Mean Corpuscular Volume 91.5 fL (81-99); Monocyte# 0.64 X10^3/uL; NRBC Flagged by Analyzer 0 % (0-5); Neutrophil # 4.21 X10^3/uL (2.7-7.7); Neutrophil % 72.3 % (47-70); POSITIVE MORPHOLOGY YES; Platelet Count 104 K/mm3 (150-450); RBC Distribution Width CV 19.4 % (11.6-14.6); RBC Distribution Width SD 65.5 fl (35.1-43.9); Red Blood Count 2.82 M/mm3 (4.2-5.4); White Blood Count 5.8 K/mm3 (4.4-11.0)
[2022-06-18 05:44] LABS: Differential Indicated SCAN CRITERIA MET
[2022-06-18 05:52] LABS: Partial Thromboplast Time 74.3 Seconds (24.1-36.2)
[2022-06-18 06:14] LABS: ALB/GLOB Ratio 0.7 RATIO (0.9-2.4); AST(SGOT) 32 U/L (15-37); Alanine Aminotransfer ALT/SGPT 35 U/L (13-56); Albumin, Serum 2.7 g/dL (3.2-5.0); Alkaline Phosphatase 32 U/L (45-117); Anion Gap 6 (5-15); BUN 77 mg/dL (7-18); BUN/Creat Ratio 36.7 RATIO (10-20); Calcium,Total 8.7 mg/dL (8.5-10.1); Chloride 109 mmol/L (98-107); Cholesterol 93 mg/dL (200); EST Glomerular Filtration Rate 24 mL/min (>60); Est Glom Filt Rate - Afr Amer 29 mL/min (>60); Estimated Creatinine Clearance 15.86 ml/min; Globulin 3.8 g/dL (2.2-4.2); Glucose 65 mg/dL (74-106); High Density Lipoprotein 56 mg/dL; Potassium 3.8 mmol/L (3.5-5.1); Protein, Total 6.5 g/dL (6.4-8.2); Sodium Level 142 mmol/L (136-145); Thyroid Stim Hormone (TSH) 0.48 uIU/mL (0.358-3.74); Triglycerides 41 mg/dL; Very Low Density Lipoprotein 8 mg/dL (5-40)
[2022-06-18 06:26] LABS: Anisocytosis 2+; Platelet Morphology LARGE
[2022-06-18 06:30] LABS: Bedside Glucose 64 mg/dL (74-106)
--- NOTE | 2022-06-18 06:51 | CON.PCM.CC_ITS ---
Assessment & Plan Assessment/Plan (1) Acute respiratory failure with hypoxia: PLAN: Plan RECOMMENDATIONS: 1. Wean supplemental oxygen to maintain saturations at or above 90%. 2. Obtain follow-up chest x-ray. 3. Start empiric antimicrobials. 4. Obtain blood and sputum cultures. 5. Continue diuresis as tolerated by hemodynamics and renal function. 6. Echocardiogram is pending. 7. Encourage incentive spirometer use and mobilize patient as tolerated. 8. The patient is medically stable for transfer out of the intensive care unit. IMPRESSIONS: 1. Acute hypoxemic respiratory failure Most likely multifactorial in etiology with underlying community-acquired pneumonia and decompensated heart failure with preserved ejection fraction contributing. The patient did receive IV diuretic therapy and was placed on BiPAP therapy, with improvement in her overall respiratory status. In light of her radiographic findings noted at presentation, I would recommend that we initiate her on antimicrobials. In addition to the aforementioned, the patient is also positive for rhinovirus. The patient also be continued on diuretic the rapy as tolerated by hemodynamics and renal function. 2. NSTEMI Most likely secondary to demand ischemia in the setting of #1. Cardiology has been consulted to evaluate the patient. 3. Paroxysmal atrial fibrillation/hypothyroidism/hypertension/hyperlipide devon/obesity/diabetes mellitus Complicates care, management, recovery and prognosis. Continue home medications as indicated. This note was generated with [employer] dictation software. It may contain incorrect words, spelling, and punctuation that were not noted in checking the note before signing. HPI Consult Data Date of Consult: 06/18/22 HPI Narrative Reason for Consultation: Respiratory failure HPI Narrative: The patient is a 76-year-old female, with a history as outlined below, who presented to the emergency department on June 17 with progressive lower extremity edema, shortness of breath and orthopnea. The patient is currently followed in the cardiology clinic due to a history of atrial fibrillation and heart failure with preserved ejection fraction. The patient does not utilize supplemental oxygen at her baseline. On presentation to the emergency department, the patient was noted to be afebr ile and hemodynamically stable. Initial laboratory evaluation revealed a white blood cell count of 11,000. The patient was anemic with a hemoglobin of 9.8 g/dL and a platelet count of 139,000. Chemistry profile was notable for a creatinine of 2.12. Lactate was elevated at 2.5. Troponin was increased at 551. COVID PCR was negative. Respiratory viral panel was positive for rhinovirus. Plain film chest x-ray demonstrated significant bilateral airspace disease. The patient was ultimately placed on BiPAP therapy in the emergency department and received IV diuretic therapy. She was admitted to the medical intensive care unit for further management. Overnight, the patient did well from a respiratory perspective and was able to be weaned to supplemental oxygen via nasal cannula this morning. She does report interval improvement in her breathing quality since admission. [facility] Medical History (HFpEF) heart failure with preserved ejection fraction Arthritis Bilateral extracranial carotid artery stenosis Calcification of mitral valve Cataracts, bilateral Chronic kidney disease (CKD) Essential hypertension Hypothyroidism New onset atrial fibrillation (04/01/22) Obesity Secondary pulmonary arterial hypertension Type 2 diabetes mellitus Uterine cancer Home Medications levothyroxine 100 mcg tablet (Levoxyl) 100 mcg PO DAILY thyroid 09/18/13 [History Last Taken 06/17/22] hydralazine 50 mg tablet 50 mg PO TID blood pressure 03/22/22 [History Last Taken 06/17/22] acetaminophen 650 mg tablet,extended release (Tylenol 8 Hour) 1,300 mg PO Q12H QHS 03/24/22 [History Last Taken 06/17/22] diphenhydramine HCl 25 mg capsule (Benadryl) 25 mg PO QHS PRN Allergy Symptoms 03/24/22 [History Last Taken 06/17/22] vpbjnhvf-inbivoh-iwni-lutein tablet 1 tab PO DAILY vitamin 03/24/22 [History Last Taken 06/17/22] amlodipine 10 mg tablet 10 mg PO DAILY BP 04/01/22 [History Last Taken 06/17/22] apixaban 2.5 mg tablet (Eliquis) 2.5 mg PO BID #60 tabs 04/01/22 [Rx Last Taken 06/17/22] ascorbic acid (vitamin C) 1,000 mg capsule 1 g PO BID 04/21/22 [History Last Taken 06/17/22] calcium citrate 1,000 mg tablet 1,000 mg PO BID 04/21/22 [History Last Taken 06/17/22] cholecalciferol (vitamin D3) 50 mcg (2,000 unit) capsule 50 mcg PO BID 04/21/22 [History Last Taken 06/17/22] furosemide 40 mg tablet 40 mg PO DAILY #180 tabs 04/22/22 [Rx Last Taken 06/17/22] insulin glargine 100 unit/mL (3 mL) subcutaneous pen (Lantus Solostar U-100 Insulin) 40 unit subcut DAILY diabetes 06/17/22 [History Last Taken 06/14/22] lisinopril 20 mg tablet 20 mg PO QHS 06/17/22 [History Last Taken 06/16/22] Allergy/AdvReac Type Severity Reaction Status Date / Time adhesive tape Allergy Other Verified 04/21/22 15:00 duloxetine Allergy PT UNSURE Verified 04/21/22 15:00 OF REACTION erythromycin base Allergy Rash Verified 04/21/22 15:00 gabapentin Allergy Swelling Verified 04/21/22 15:00 pioglitazone [From Actos] Allergy PT UNSURE Verified 04/21/22 15:00 OF REACTION codeine AdvReac headache Verified 04/21/22 15:00 Family History Father Diabetes Myocardial infarction, Onset Age: 45 Hypertension Aunt Breast cancer Arthritis Brother Myocardial infarction, Onset Age: 50 Mother CVA (cerebral vascular accident) Hypertension Daughter Thyroid disorder Surgical History H/O: hysterectomy History of lobectomy of lung History of total hip arthroplasty Hx of appendectomy Hx of tubal ligation S/P debridement Social History household members: children current occupational status: retired current occupation: nurse Smoking Status: Former smoker quit date: 08/15/1959 Electronic Cigarette Use: not used alcohol intake: current alcohol intake frequency: holidays/special occasions only substance use type: does not use what type of physical activity do you participate in: none do you feel safe at home: Yes ROS ROS Narrative 10 systems were reviewed with pertinent positives as noted in the HPI above. Physical Exam Const alert, oriented x3 and no apparent distress General Appearance: cooperative Nutritional Appearance: obese HEENT normocephalic, head/scalp atraumatic and moist oral mucous membranes Eyes PERRL, EOMs intact bilaterally and conjunctivae normal Neck supple General: trachea midline Chest inspection of chest normal Resp normal respiratory effort Auscultation: rales Cardio regular rate and regular rhythm GI normal to inspection, nondistended, normoactive bowel sounds Extremity General Extremity: edema bilateral lower extremity; Negative for clubbing Skin General Skin Exam: venous stasis and dermatitis Neuro oriented x3, CN's II-XII intact bilaterally, moves all extremities and no focal motor deficits Psych cooperative and affect normal Lab / Micro Data Result Diagrams: 06/18/22 05:25 06/18/22 05:25 Labs: Laboratory Results - last 24 hr 06/17/22 14:02: WBC 11.1 H, RBC 3.35 L, Hgb 9.8 L, Hct 30.0 L, MCV 89.6, MCH 29.3, MCHC 32.7, RDW Std Deviation 63.2 H, RDW Coeff of Nael 19.4 H, Plt Count 139 L, Immature Gran % (Auto) 1.500 H, Neut % (Auto) 85.3 H, Lymph % (Auto) 4.8 L, Marshall % (Auto) 7.9, Eos % (Auto) 0.1, Baso % (Auto) 0.4, Absolute Neuts (auto) 9.5 H, Absolute Lymphs (auto) 0.53 L, Nucleated RBC % 0, Differential Comment SCANNED 06/17/22 14:02: Sodium 141, Potassium 3.7, Chloride 106, Carbon Dioxide 24.0, Anion Gap 11, BUN 79 H, Creatinine 2.12 H, Estim Creat Clear Calc 15.71, Est GFR (MDRD) Af Amer 29 L, Est GFR (MDRD) Non-Af 24 L, BUN/Creatinine Ratio 37.3 H, Glucose 230 H, Calcium 9.6, Total Bilirubin 1.10 H, AST 36, ALT 48, Alkaline Phosphatase 52, Troponin I High Sens 551 H*, Total Protein 8.0, Albumin 3.5, Globulin 4.5 H, Albumin/Globulin Ratio 0.8 L 06/17/22 14:02: Lactic Acid 2.5 H* 06/17/22 14:02: PT 18.3 H, INR 1.6, APTT 37.7 H 06/17/22 17:00: COVID-19 (ZAK) Not Detected 06/17/22 18:10: Troponin I High Sens 577 H* 06/17/22 21:23: POC Glucose 76 06/17/22 21:35: Troponin I High Sens 657 H* 06/17/22 21:53: APTT 38.1 H 06/17/22 : Procalcitonin 5.23 H 06/18/22 05:25: WBC 5.8, RBC 2.82 L, Hgb 8.3 L, Hct 25.8 L, MCV 91.5, MCH 29.4, MCHC 32.2, RDW Std Deviation 65.5 H, RDW Coeff of Nael 19.4 H, Plt Count 104 L, Immature Gran % (Auto) 1.900 H, Neut % (Auto) 72.3 H, Lymph % (Auto) 12.9 L, Marshall % (Auto) 11.0 H, Eos % (Auto) 1.4, Baso % (Auto) 0.5, Absolute Neuts (auto) 4.2, Absolute Lymphs (auto) 0.75 L, Nucleated RBC % 0, Plt Morphology Comment LARGE, Anisocytosis 2+ 06/18/22 05:25: Sodium 142, Potassium 3.8, Chloride 109 H, Carbon Dioxide 27.0, Anion Gap 6, BUN 77 H, Creatinine 2.10 H, Estim Creat Clear Calc 15.86, Est GFR (MDRD) Af Amer 29 L, Est GFR (MDRD) Non-Af 24 L, BUN/Creatinine Ratio 36.7 H, Glucose 65 L, Calcium 8.7, Total Bilirubin 1.00, AST 32, ALT 35, Alkaline Phosphatase 32 L, Total Protein 6.5, Albumin 2.7 L, Globulin 3.8, Albumin/Globulin Ratio 0.7 L, Triglycerides 41, Cholesterol 93, LDL Cholesterol 29, VLDL Cholesterol 8, HDL Cholesterol 56, TSH 0.48 06/18/22 05:25: APTT 74.3 H 06/18/22 06:03: POC Glucose 64 L Micro: Microbiology 06/17/22 17:00 Mucosa - Nose Respiratory Panel (PCR) - Final Rhinovirus 06/17/22 14:57 Nasal Secretion SARS-CoV-2 & FLU Antigen (Rapid) - Final ABG Data ABG results: ABG 06/17/22 15:41 Specimen Type ART Sample Site R Radial pH 7.46 H Bicarbonate Actual 25.5 Total CO2 27 Base Excess 2 O2 Saturation 95 O2 % 30 ABG pCO2 35.7 ABG pO2 73 L Merlin Test Positive Respiration Rate 10 O2 Delivery Device BiPAP Vent Mode BiLevel POC PEEP 6 Clinical Comments 07/20 10 30% Radiology Impression Chest X-Ray 06/17/22 15:55 IMPRESSION: Worsening bibasilar pneumonia. Electronically Signed: Mani Wells MD at 16:06 EDT , Charges/Coding Visit Charges Inpatient E&M: 50565 Init Hosp L3
--- NOTE | 2022-06-18 07:22 | PN.HOSP_ITS ---
Subjective Subjective Patient is a 76-year-old lady with multiple comorbidities admitted with shortness of breath and bipedal edema. An assessment of acute hypoxic respiratory failure made admitted to intensive care unit for further management Objective Data Objective Data Vital Signs: Vital Signs Temp Pulse Resp BP Pulse Ox O2 Del Method O2 Flow Rate 98.2 F 55 L 15 130/46 H 97 Nasal Cannula 3 06/18/22 06:00 06/18/22 06:00 06/18/22 06:00 06/18/22 06:00 06/18/22 06:00 06/18/22 06:00 06/18/22 06:00 FiO2 30 06/18/22 02:35 Oxygen Flow Rate (L/min) 3 Oxygen Delivery Method Nasal Cannula Weight: 87 kg Body Mass Index (BMI) 37.6 Intake & Output: Intake and Output for Last 24 Hours 06/16/22 06/17/22 06/18/22 23:59 23:59 23:59 Intake Total 36.00 / 39.00 444.2 / 444.2 Output Total 700 / 700 150 / 150 Balance -664.00 / -661.00 294.2 / 294.2 Lab / Micro Data Result Diagrams: 06/18/22 05:25 06/18/22 05:25 Labs: Laboratory Results - last 24 hr 06/17/22 14:02: WBC 11.1 H, RBC 3.35 L, Hgb 9.8 L, Hct 30.0 L, MCV 89.6, MCH 29.3, MCHC 32.7, RDW Std Deviation 63.2 H, RDW Coeff of Nael 19.4 H, Plt Count 139 L, Immature Gran % (Auto) 1.500 H, Neut % (Auto) 85.3 H, Lymph % (Auto) 4.8 L, [place] % (Auto) 7.9, Eos % (Auto) 0.1, Baso % (Auto) 0.4, Absolute Neuts (auto) 9.5 H, Absolute Lymphs (auto) 0.53 L, Nucleated RBC % 0, Differential Comment SCANNED 06/17/22 14:02: Sodium 141, Potassium 3.7, Chloride 106, Carbon Dioxide 24.0, Anion Gap 11, BUN 79 H, Creatinine 2.12 H, Estim Creat Clear Calc 15.71, Est GFR (MDRD) Af Amer 29 L, Est GFR (MDRD) Non-Af 24 L, BUN/Creatinine Ratio 37.3 H, Glucose 230 H, Calcium 9.6, Total Bilirubin 1.10 H, AST 36, ALT 48, Alkaline Phosphatase 52, Troponin I High Sens 551 H*, Total Protein 8.0, Albumin 3.5, Globulin 4.5 H, Albumin/Globulin Ratio 0.8 L 06/17/22 14:02: Lactic Acid 2.5 H* 06/17/22 14:02: PT 18.3 H, INR 1.6, APTT 37.7 H 06/17/22 17:00: COVID-19 (ZAK) Not Detected 06/17/22 18:10: Troponin I High Sens 577 H* 06/17/22 21:23: POC Glucose 76 06/17/22 21:35: Troponin I High Sens 657 H* 06/17/22 21:53: APTT 38.1 H 06/17/22 : Procalcitonin 5.23 H 06/18/22 05:25: WBC 5.8, RBC 2.82 L, Hgb 8.3 L, Hct 25.8 L, MCV 91.5, MCH 29.4, MCHC 32.2, RDW Std Deviation 65.5 H, RDW Coeff of Nael 19.4 H, Plt Count 104 L, Immature Gran % (Auto) 1.900 H, Neut % (Auto) 72.3 H, Lymph % (Auto) 12.9 L, [place] % (Auto) 11.0 H, Eos % (Auto) 1.4, Baso % (Auto) 0.5, Absolute Neuts (auto) 4.2, Absolute Lymphs (auto) 0.75 L, Nucleated RBC % 0, Plt Morphology Comment LARGE, Anisocytosis 2+ 06/18/22 05:25: Sodium 142, Potassium 3.8, Chloride 109 H, Carbon Dioxide 27.0, Anion Gap 6, BUN 77 H, Creatinine 2.10 H, Estim Creat Clear Calc 15.86, Est GFR (MDRD) Af Amer 29 L, Est GFR (MDRD) Non-Af 24 L, BUN/Creatinine Ratio 36.7 H, Glucose 65 L, Calcium 8.7, Total Bilirubin 1.00, AST 32, ALT 35, Alkaline Phosphatase 32 L, Total Protein 6.5, Albumin 2.7 L, Globulin 3.8, A lbumin/Globulin Ratio 0.7 L, Triglycerides 41, Cholesterol 93, LDL Cholesterol 29, VLDL Cholesterol 8, HDL Cholesterol 56, TSH 0.48 06/18/22 05:25: APTT 74.3 H 06/18/22 06:03: POC Glucose 64 L Micro: Microbiology 06/17/22 17:00 Mucosa - Nose Respiratory Panel (PCR) - Final Rhinovirus 06/17/22 14:57 Nasal Secretion SARS-CoV-2 & FLU Antigen (Rapid) - Final ABG Data ABG results: ABG 06/17/22 15:41 Specimen Type ART Sample Site R Radial pH 7.46 H Bicarbonate Actual 25.5 Total CO2 27 Base Excess 2 O2 Saturation 95 O2 % 30 ABG pCO2 35.7 ABG pO2 73 L Merlin Test Positive Respiration Rate 10 O2 Delivery Device BiPAP Vent Mode BiLevel POC PEEP 6 Clinical Comments 07/20 10 30% Radiography Diagnostic Testing: Radiology Impression Chest X-Ray 06/17/22 15:55 IMPRESSION: Worsening bibasilar pneumonia. Electronically Signed: Mani Wells MD at 16:06 EDT , Physical Exam Narrative GENERAL: cooperative HEENT: Atraumatic; normocephalic EYES; Anicteric, Normal Conjunctiva NECK; supple, normal thyroid, RESPIRATORY: Diminished to auscultation CARDIOVASCULAR: Regular S1 S2, GI: soft, normoactive bowel sounds, : No Renal angle tenderness; EXTREMITIES: No edema, no clubbing, MUSCULOSKELETAL: no muscle wasting NEURO: Awake; no lateralizing signs. SKIN: No Rash PSYCH; Flat affect Assessment & Plan Assessment/Plan (1) Acute respiratory failure with hypoxia: PLAN: Plan Patient is a 76-year-old lady with multiple comorbidities admitted with shortness of breath and bipedal edema. An assessment of acute hypoxic respiratory failure made admitted to intensive care unit for further management 1. Acute hypoxic respiratory failure (present on admission) ? Patient was tachypneic and was reported to be using accessory muscles of breathing and had to be placed on BiPAP to achieve adequate oxygen saturations. Patient course of acute hypoxic respiratory failure is multifactorial including CHF with recent acute viral syndrome. Admitted to the intensive care unit for subsequent management 2. Acute on chronic congestive heart failure with preserved ejection fraction ? Patient recent echo on 04/01/2022 demonstrated EF of 60 to 65%. Patient has been admitted to a monitored bed managed with strict input and output, daily weight, IV diuretics 3. Acute NSTEMI ? Treatment initiated per protocol patient started on heparin drip and JACLYN inhibitor's aspirin and statin therapy. Consult placed to cardiology 4. Acute viral syndrome ? Patient respiratory viral panel came back positive for rhinovirus plan is to treat symptomatically 5. Lactic acidosis ? Secondary to increased work of breathing 6. Paroxysmal A. fib ? Rate controlled on systemic anticoagulation with apixaban this was held since patient was started on heparin 7. Hypertension - Blood pressure controlled, home medications continued with dose adjustment as needed 8. Dyslipidemia -Patient is on statin therapy, continued at home dose 9. Diabetes mellitus type II -patient's oral hypoglycemics held. Placed on long acting insulin, Accu-Cheks a .c. and at bedtime and covered with sliding scale insulin 10. Hypothyroidism - Patient is on levothyroxine home dose continued 11. Anemia - Secondary to chronic disorder monitoring H&H and transfuse if patient becomes symptomatic or hemoglobin falls below 7 12. Chronic kidney disease stage IV Patient baseline creatinine ranges from 1.8-2.4. Creatinine on admission was 2.12 daily monitoring with BMPs ordered 13. DVT prophylaxis ? On systemic anticoagulation Charges/Coding Visit Charges Inpatient E&M: 15320 [facility] [place] Hosp L3
[2022-06-18 07:51] LABS: Bedside Glucose 115 mg/dL (74-106)
[2022-06-18 07:51] LABS: BNP,B-Type NATRIURETIC PEPTIDE 409.9 pg/mL (0-100)
[2022-06-18] MEDS: Aspirin 81 MG TAB.CHEW PO (08:17)
[2022-06-18] MEDS: 0.9% Saline Lock 10 ML Syringe IV (08:18)
[2022-06-18] MEDS: amLODIPine 10 MG Tablet PO (08:18)
[2022-06-18] MEDS: Furosemide 40 MG/4 ML Vial IV ×2 (08:18→17:14)
--- NOTE | 2022-06-18 08:20 | RAD_ITS ---
STUDY: X-RAY CHEST REASON FOR EXAM: Female, 76 years old. Respiratory Failure TECHNIQUE: Single AP portable view of the chest. COMPARISON: Comparison is made with prior study dated 06/17/2022 at 3:59 PM. FINDINGS: EKG lead traversing. Persistent infiltrate in the left upper lobe as well as in the right parahilar region. There has been a moderate degree of clearing as compared to prior study. Surgical clips are seen in the left perihilar region. There is no demonstrated pleural abnormality. Normal size heart. Normal mediastinum and maddy. Normal visualized pulmonary arteries. Normal visualized aortic arch and descending thoracic aorta. Normal visualized thoracic spine. Normal visualized ribs, clavicles, and shoulders. There is no demonstrated abnormality of the visualized soft tissue structures of the upper abdomen. RAD/Chest 1 View (Portable) IMPRESSION: Residual bilateral pulmonary infiltrates worse on the left side although there has been a moderate degree of improvement compared to prior study. Electronically Signed: Tae Martin MD at 10:53 EDT ,
--- NOTE | 2022-06-18 09:22 | PCM.RX.CS ---
Consult Pharmacy has been consulted to manage selected antiobiotic: Vancomycin Type of Consult: New start Suspected Infection: Other Prior Doses of Antibiotics Received/Current Regimen: Loading dose of 2gm iv x 1 on 06.18.22. Labs: Sodium 142 mmol/L (136-145) 06/18/22 05:25 Potassium 3.8 mmol/L (3.5-5.1) 06/18/22 05:25 Chloride 109 mmol/L (98-107) H 06/18/22 05:25 Carbon Dioxide 27.0 mmol/L (21.0-32.0) 06/18/22 05:25 Anion Gap 6 (5-15) 06/18/22 05:25 BUN 77 mg/dL (7-18) H 06/18/22 05:25 Creatinine 2.10 mg/dL (0.55-1.02) H 06/18/22 05:25 Est GFR (MDRD) Af Amer 29 mL/min (>60) L 06/18/22 05:25 Est GFR (MDRD) Non-Af 24 mL/min (>60) L 06/18/22 05:25 BUN/Creatinine Ratio 36.7 RATIO (10-20) H 06/18/22 05:25 Glucose 65 mg/dL (74-106) L 06/18/22 05:25 Microbiology: Microbiology 06/18/22 08:00 Urine, Clean Catch Legionella Antigen - Final 06/18/22 08:00 Urine, Clean Catch Streptococcus pneumoniae Antigen (M - Final 06/17/22 17:00 Mucosa - Nose Respiratory Panel (PCR) - Final Rhinovirus 06/17/22 14:57 Nasal Secretion SARS-CoV-2 & FLU Antigen (Rapid) - Final Weight used for dosin kg Estimated Creatinine Clearance: 22 ml/min Goal Trough: 15-20 mcg/mL Pharmacy Plan for Drug Dosing: Will start 750mg iv q24h based on calculated CrCl of ~22ml/min using an adjusted body weight of 62.1kg. Trough level ordered for 06.20.22 before third total dose. Pharmacy Service will continue to monitor and adjust dosing as required. Follow-Up Labs: Trough Vancomycin - 06.20.22 @0730
--- NOTE | 2022-06-18 09:30 | CASEMGMT ---
LIU COLE assessment: RN DOUGLAS to room to meet with patient for initial transition planning/care coordination assessment. LIU COLE introduced self and role at [facility], pt voices understanding and consents to assessment. Pt resting in bed in no distress on room air. Pt is A/O and answers all questions appropriately. Care providers, pharmacy,?and demographics verified. PCP: Dr Althea Coker Specialists: Marshall, nephro; Georgette, cardio, Mak-ortho, front loader residential driver Preferred Pharmacy: [facility] Insurance: MCR A/B, MMO Prescription Benefit:? Yes Living Will/HPOA: Pt states her daughter, Jaclyn Osullivan, is HPOA. She does not think she has done a LW and declines wanting to do while @ [facility]. She is aware she can make appt w/SW as an OP, if she chooses to do so in the future. She voices understanding. LNOK: Jaclyn Osullivan, daughter/HPOA. Pt also has dtr, Jacque, and 2 sons, Live and Suman. Living Arrangements: Pt lives with daughter, Jaclyn, and son-in-law, Hina. Jaclyn is a TELEVISION WRITER and works business services sales representative. Pt states they live in 2 story home. Her bedroom is on the 2nd floor, but since she dislocated her hip in April, she has had FFSU. They do have a stair lift, for when she is able to return to her bedroom upstairs in the future. Jaclyn helps to bath and dress her. Hina is home w/pt during the day while Jaclyn is @ work and assists w/getting meals for her. Pt states she is able to ambulate well enough on her own w/use of walker to go to the restroom. Transportation: Pt daughter drives or uses [employer] transit and states no transportation concerns. DME: Pt has the following DME: quad cane, walker, shower chair, pulse ox, BP machine, and functioning glucometer w/supplies. Jaclyn just ordered a life-alert button. Pt does not have home O2. Jaclyn states, if pt qualifies for O2 @ discharge, she prefers [employer], as they are affiliated w/[facility]. Pt made aware and is agreeable. HHC/SNF: Pt states has had HHC in the past but has not been to SNF. She is currently going to [facility] for OP therapy. Pt declines wanting to go to a SNF, she wishes to return home and interested in HHC. She states she would just like [facility] for therapy only, she does not want a nurse or an aide. A list of HHC providers including quality and resource use data and consistent with the patient?s preferred geographic region, medical needs, and insurance network were provided from the [employer] Guide. Pt states she does not have a preference and states she would like Jaclyn to make the decision. Call placed to Jaclyn. She is agreeable to HHC and states would like [facility] and declines having RN CM review list of local C agencies w/her. Jaclyn states she feels only therapy would be needed, not SN. Jaclyn did inquire if [facility] covers for someone to stay w/pt during the day. She was made aware [facility] will cover for an aide while getting skilled HHC service, but aide just comes in to bath/dress pt 2-3 times/week only and do not stay for longer period of time. She declines wanting any aide for those services. Offered list of private-duty agencies, but she declines. Jaclyn aware pt would need to stop going to [facility] for therapy, while getting HHC services. Call placed to Maia @ [facility] and referral made for PT/OT. She states they are able to accept pt. Pt and Jaclyn both made aware. SOC slated for Friday 06/22 per Maia. Pt states no concerns with going home at time of discharge. Pt is retired. Pt states no further concerns/needs. CM to follow for any further discharge planning/needs. Advised pt to ask for CM if any further questions/concerns/needs arise, voices understanding. Plan: Home w/family support and [facility] for PT/OT. Kike ALLRED RN, CM
[2022-06-18 11:37] LABS: M R Staph aureus DNA By PCR Negative (Negative); Probe Check PASS; Specimen Processing Control PASS
--- NOTE | 2022-06-18 11:46 | PCM.CONS.C ---
Documented by User: Wilberto Merino NP, [employer] 06/18/22 12:05 Assessment & Plan Assessment/Plan (1) Non-ST elevated myocardial infarction: PLAN: At this time, she is chest pain-free. She is currently on heparin infusion. We will plan for left heart catheterization on Tuesday. We will utilize nitroglycerin as needed to assist with chest pain. If recurrent chest pain, we will consider heart catheterization sooner. She will continue aspirin, atorvastatin, and lisinopril. (2) Paroxysmal atrial fibrillation: PLAN: She appears to be in atrial fibrillation. Her heart rate is well controlled. She is currently not on rate limiting medication due to history of bradycardia. Her factor Xa inhibitor is currently on hold due to pending heart catheterization. After appropriate timing from heart catheterization, we will resume Eliquis for CVA protection. Her anemia will need to be followed closely with anticoagulation therapy. (3) (HFpEF) heart failure with preserved ejection fraction: QUALIFIERS: Heart failure chronicity: chronic Qualified Code(s): I50.32 - Chronic diastolic (congestive) heart failure PLAN: Her BNP upon admission was elevated at 409. Her shortness of breath may be compounded by fluid volume overload and recent upper respiratory infection. Her last echocardiogram in March 2022 showed ejection fraction of 60-65%. She does acknowledge improvement in her symptoms. She will continue with Lasix 40 mg IV twice daily. Once she is achieved improved volume status, we will transition back to p.o. regimen. She we will continue afterloading agents as well. (4) Essential hypertension: PLAN: We will continue to adjust medications over time to assist with blood pressure control. (5) Bradycardia: PLAN: Due to this, she has not been on rate limiting medications previously. Her heart rate is well controlled. We will continue to observe. (6) Calcification of mitral valve: PLAN: Her echocardiogram in March 2022 showed mild?moderate mitral valve insufficiency. This appears stable on exam today. We will continue to monitor and follow over time. PLAN: Plan Patient was seen in consultation with Dr. Lombardi. Please see additional documentation from Dr. Lombardi regarding treatment plan. HPI Consult Data Date of Consult: 06/18/22 HPI Narrative HPI Narrative: MIROSLAVA OSWALD, is a 76 F who who presented to the ER on 06/17/2022 with shortness of breath and upper respiratory symptoms. She was placed on BiPAP therapy in the Emergency Department for respiratory distress. She was admitted for acute respiratory failure and hypoxia and non-ST elevated myocardial infarction. She has a past medical history of hypertension, chronic renal disease, paroxysmal atrial fibrillation, heart failure with preserved ejection fraction, bradycardia in which beta-amber has been discontinued, hypothyroidism, anemia, and diabetes mellitus type 2. Cardiology was consulted due to elevated high sensitive troponin. This has trended at 551, 577, and 657. BNP was elevated at 409.9. [facility] Medical History (HFpEF) heart failure with preserved ejection fraction Arthritis Bilateral extracranial carotid artery stenosis Calcification of mitral valve Cataracts, bilateral Chronic kidney disease (CKD) Essential hypertension Hypothyroidism New onset atrial fibrillation (04/01/22) Obesity Secondary pulmonary arterial hypertension Type 2 diabetes mellitus Uterine cancer Home Medications levothyroxine 100 mcg tablet (Levoxyl) 100 mcg PO DAILY thyroid 09/18/13 [History Last Taken 06/17/22] hydralazine 50 mg tablet 50 mg PO TID blood pressure 03/22/22 [History Last Taken 06/17/22] acetaminophen 650 mg tablet,extended release (Tylenol 8 Hour) 1,300 mg PO Q12H QHS 03/24/22 [History Last Taken 06/17/22] diphenhydramine HCl 25 mg capsule (Benadryl) 25 mg PO QHS PRN Allergy Symptoms 03/24/22 [History Last Taken 06/17/22] jatadqay-dbfdewl-tlrw-lutein tablet 1 tab PO DAILY vitamin 03/24/22 [History Last Taken 06/17/22] amlodipine 10 mg tablet 10 mg PO DAILY BP 04/01/22 [History Last Taken 06/17/22] apixaban 2.5 mg tablet (Eliquis) 2.5 mg PO BID #60 tabs 04/01/22 [Rx Last Taken 06/17/22] ascorbic acid (vitamin C) 1,000 mg capsule 1 g PO BID 04/21/22 [History Last Taken 06/17/22] calcium citrate 1,000 mg tablet 1,000 mg PO BID 04/21/22 [History Last Taken 06/17/22] cholecalciferol (vitamin D3) 50 mcg (2,000 unit) capsule 50 mcg PO BID 04/21/22 [History Last Taken 06/17/22] furosemide 40 mg tablet 40 mg PO DAILY #180 tabs 04/22/22 [Rx Last Taken 06/17/22] insulin glargine 100 unit/mL (3 mL) subcutaneous pen (Lantus Solostar U-100 Insulin) 44 unit subcut DAILY diabetes 06/17/22 [History Last Taken 06/14/22] lisinopril 20 mg tablet 20 mg PO QHS 06/17/22 [History Last Taken 06/16/22] Allergy/AdvReac Type Severity Reaction Status Date / Time adhesive tape Allergy Other Verified 04/21/22 15:00 duloxetine Allergy PT UNSURE Verified 04/21/22 15:00 OF REACTION erythromycin base Allergy Rash Verified 04/21/22 15:00 gabapentin Allergy Swelling Verified 04/21/22 15:00 pioglitazone [From Actos] Allergy PT UNSURE Verified 04/21/22 15:00 OF REACTION codeine AdvReac headache Verified 04/21/22 15:00 Family History Father Diabetes Myocardial infarction, Onset Age: 45 Hypertension Aunt Breast cancer Arthritis Brother Myocardial infarction, Onset Age: 50 Mother CVA (cerebral vascular accident) Hypertension Daughter Thyroid disorder Surgical History H/O: hysterectomy History of lobectomy of lung History of total hip arthroplasty Hx of appendectomy Hx of tubal ligation S/P debridement Social History household members: children current occupational status: retired current occupation: nurse Smoking Status: Former smoker quit date: 08/15/1959 Electronic Cigarette Use: not used alcohol intake: current alcohol intake frequency: holidays/special occasions only substance use type: does not use what type of physical activity do you participate in: none do you feel safe at home: Yes ROS ROS Narrative Patient denies chest pain. She acknowledges ongoing cough and associated rib pain. She acknowledges improvement in her shortness of breath since admission. Cardiovascular Cardiovascular: Reports as per HPI Respiratory/Chest Respiratory/Chest: Reports as per HPI Physical Exam Const alert, oriented x3 and no apparent distress Orientation / Consciousness: awake HEENT normocephalic Neck no JVD Carotids: normal carotid upstroke Chest inspection of chest normal Resp normal respiratory effort Auscultation: diminished lung sounds bilateral Cardio regular rhythm Jugular Venous Distention: Negative for JVD Rate: regular rate Rhythm: abnormal rhythm irregularly irregular Heart Sounds: murmur systolic II/ soft left sternal border Peripheral Pulses: pulses 2+ throughout Extremity General Extremity: edema bilateral lower extremity Details: mild Psych mental status grossly normal Risk Stratification Risk Stratification Applicable: Yes Age >/= 65: Yes >/= 3 CAD Risk Factors (HTN, HLD, DM, family hx of CAD, or current smoker): Yes Aspirin Use in the Past 7 Days: Yes Severe Angina (>/= episodes in 24 hours): No EKG ST Changes >/= 0.5mm: No Positive Cardiac Marker: Yes HERMINIO Risk Stratification Score: 4 HERMINIO % Risk: 20% Risk Objective Data Vital Signs: Vital Signs Temp Pulse Resp BP Pulse Ox O2 Del Method O2 Flow Rate 97.7 F L 66 17 146/56 H 94 Nasal Cannula 3 06/18/22 08:00 06/18/22 10:59 06/18/22 09:00 06/18/22 09:00 06/18/22 09:00 06/18/22 09:00 06/18/22 09:00 FiO2 30 06/18/22 02:35 Oxygen Flow Rate (L/min) 3 Oxygen Delivery Method Nasal Cannula Weight: 191 lb 12.835 oz Body Mass Index (BMI) 37.6 Intake & Output: Intake and Output for Last 24 Hours 06/16/22 06/17/22 06/18/22 23:59 23:59 23:59 Intake Total 36.00 / 39.00 1075.75 / 1075.75 Output Total 700 / 700 350 / 350 Balance -664.00 / -661.00 725.75 / 725.75 Lab / Micro Data Result Diagrams: 06/18/22 05:25 06/18/22 05:25 Labs: Laboratory Results - last 24 hr 06/17/22 14:02: WBC 11.1 H, RBC 3.35 L, Hgb 9.8 L, Hct 30.0 L, MCV 89.6, MCH 29.3, MCHC 32.7, RDW Std Deviation 63.2 H, RDW Coeff of Nael 19.4 H, Plt Count 139 L, Immature Gran % (Auto) 1.500 H, Neut % (Auto) 85.3 H, Lymph % (Auto) 4.8 L, [place] % (Auto) 7.9, Eos % (Auto) 0.1, Baso % (Auto) 0.4, Absolute Neuts (auto) 9.5 H, Absolute Lymphs (auto) 0.53 L, Nucleated RBC % 0, Differential Comment SCANNED 06/17/22 14:02: Sodium 141, Potassium 3.7, Chloride 106, Carbon Dioxide 24.0, Anion Gap 11, BUN 79 H, Creatinine 2.12 H, Estim Creat Clear Calc 15.71, Est GFR (MDRD) Af Amer 29 L, Est GFR (MDRD) Non-Af 24 L, BUN/Creatinine Ratio 37.3 H, Glucose 230 H, Calcium 9.6, Total Bilirubin 1.10 H, AST 36, ALT 48, Alkaline Phosphatase 52, Troponin I High Sens 551 H*, Total Protein 8.0, Albumin 3.5, Globulin 4.5 H, Albumin/Globulin Ratio 0.8 L 06/17/22 14:02: Lactic Acid 2.5 H* 06/17/22 14:02: PT 18.3 H, INR 1.6, APTT 37.7 H 06/17/22 17:00: COVID-19 ([facility]AK) Not Detected 06/17/22 18:10: Troponin I High Sens 577 H* 06/17/22 21:23: POC Glucose 76 06/17/22 21:35: Troponin I High Sens 657 H* 06/17/22 21:53: APTT 38.1 H 06/17/22 : Procalcitonin 5.23 H 06/18/22 05:25: WBC 5.8, RBC 2.82 L, Hgb 8.3 L, Hct 25.8 L, MCV 91.5, MCH 29.4, MCHC 32.2, RDW Std Deviation 65.5 H, RDW Coeff of Nael 19.4 H, Plt Count 104 L, Immature Gran % (Auto) 1.900 H, Neut % (Auto) 72.3 H, Lymph % (Auto) 12.9 L, [place] % (Auto) 11.0 H, Eos % (Auto) 1.4, Baso % (Auto) 0.5, Absolute Neuts (auto) 4.2, Absolute Lymphs (auto) 0.75 L, Nucleated RBC % 0, Plt Morphology Comment LARGE, Anisocytosis 2+ 06/18/22 05:25: Sodium 142, Potassium 3.8, Chloride 109 H, Carbon Dioxide 27.0, Anion Gap 6, BUN 77 H, Creatinine 2.10 H, Estim Creat Clear Calc 15.86, Est GFR (MDRD) Af Amer 29 L, Est GFR (MDRD) Non-Af 24 L, BUN/Creatinine Ratio 36.7 H, Glucose 65 L, Calcium 8.7, Total Bilirubin 1.00, AST 32, ALT 35, Alkaline Phosphatase 32 L, Total Protein 6.5, Albumin 2.7 L, Globulin 3.8, Albumin/Globulin Ratio 0.7 L, Triglycerides 41, Cholesterol 93, LDL Cholesterol 29, VLDL Cholesterol 8, HDL Cholesterol 56, TSH 0.48 06/18/22 05:25: APTT 74.3 H 06/18/22 05:25: B-Natriuretic Peptide 409.9 H 06/18/22 06:03: POC Glucose 64 L 06/18/22 06:38: POC Glucose 115 H 06/18/22 08:10: MRSA (PCR) Negative Micro: Microbiology 06/18/22 08:00 Urine, Clean Catch Legionella Antigen - Final 06/18/22 08:00 Urine, Clean Catch Streptococcus pneumoniae Antigen (M - Final 06/17/22 17:00 Mucosa - Nose Respiratory Panel (PCR) - Final Rhinovirus 06/17/22 14:57 Nasal Secretion SARS-CoV-2 & FLU Antigen (Rapid) - Final ABG Data ABG results: ABG 06/17/22 15:41 Specimen Type ART Sample Site R Radial pH 7.46 H Bicarbonate Actual 25.5 Total CO2 27 Base Excess 2 O2 Saturation 95 O2 % 30 ABG pCO2 35.7 ABG pO2 73 L Merlin Test Positive Respiration Rate 10 O2 Delivery Device BiPAP Vent Mode BiLevel POC PEEP 6 Clinical Comments 07/20 10 30% Rhythm Strip Rhythm Strip: A-fib Cardiology Labs/Tests 06/17/22 14:02: WBC 11.1 H, RBC 3.35 L, Hgb 9.8 L, Hct 30.0 L, MCV 89.6, MCH 29.3, MCHC 32.7, Plt Count 139 L, Immature Gran % (Auto) 1.500 H, Neut % (Auto) 85.3 H, Lymph % (Auto) 4.8 L, [place] % (Auto) 7.9, Eos % (Auto) 0.1, Baso % (Auto) 0.4, Absolute Neuts (auto) 9.5 H, Nucleated RBC % 0 06/17/22 14:02: Sodium 141, Potassium 3.7, Chloride 106, Carbon Dioxide 24.0, Anion Gap 11, BUN 79 H, Creatinine 2.12 H, Est GFR (MDRD) Af Amer 29 L, Est GFR (MDRD) Non-Af 24 L, BUN/Creatinine Ratio 37.3 H, Glucose 230 H, Calcium 9.6, Total Bilirubin 1.10 H 06/17/22 14:02: Lactic Acid 2.5 H* 06/17/22 14:02: PT 18.3 H, INR 1.6, APTT 37.7 H 06/17/22 15:41: pH 7.46 H, Bicarbonate Actual 25.5, Base Excess 2, O2 Saturation 95, ABG pCO2 35.7, ABG pO2 73 L, Merlin Test Positive 06/17/22 21:53: APTT 38.1 H 06/18/22 05:25: WBC 5.8, RBC 2.82 L, Hgb 8.3 L, Hct 25.8 L, MCV 91.5, MCH 29.4, MCHC 32.2, Plt Count 104 L, Immature Gran % (Auto) 1.900 H, Neut % (Auto) 72.3 H, Lymph % (Auto) 12.9 L, [place] % (Auto) 11.0 H, Eos % (Auto) 1.4, Baso % (Auto) 0.5, Absolute Neuts (auto) 4.2, Nucleated RBC % 0 06/18/22 05:25: Sodium 142, Potassium 3.8, Chloride 109 H, Carbon Dioxide 27.0, Anion Gap 6, BUN 77 H, Creatinine 2.10 H, Est GFR (MDRD) Af Amer 29 L, Est GFR (MDRD) Non-Af 24 L, BUN/Creatinine Ratio 36.7 H, Glucose 65 L, Calcium 8.7, Total Bilirubin 1.00, Triglycerides 41, Cholesterol 93, LDL Cholesterol 29, VLDL Cholesterol 8, HDL Cholesterol 56 06/18/22 05:25: APTT 74.3 H 06/18/22 05:25: B-Natriuretic Peptide 409.9 H Rhythm: EKG: ECHO: 04/01/2022 Interpretation Summary The estimated ejection fraction is 60-65 %. with Extension of MACto the posterior mitral valve leaflet Mild - Moderate MR Mild TR No channnnge fro previous echo 03/18/2021 Stress Test: Cardiac Cath: PCI: CT Surgery: Holter monitor: EPS: PPM: CXR: Chest CT Scan: Radiography Diagnostic Testing: Radiology Impression Chest X-Ray 06/17/22 15:55 IMPRESSION: Worsening bibasilar pneumonia. Electronically Signed: Mani Wells MD at 16:06 EDT , Chest X-Ray 06/18/22 08:20 IMPRESSION: Residual bilateral pulmonary infiltrates worse on the left side although there has been a moderate degree of improvement compared to prior study. Electronically Signed: Tae Martin MD at 10:53 EDT , Documented by User: Dr. Marge Lombardi MD 06/18/22 13:57 Assessment & Plan Assessment/Plan (1) Non-ST elevated myocardial infarction: (2) Paroxysmal atrial fibrillation: (3) (HFpEF) heart failure with preserved ejection fraction: QUALIFIERS: Heart failure chronicity: chronic Qualified Code(s): I50.32 - Chronic diastolic (congestive) heart failure (4) Essential hypertension: (5) Bradycardia: (6) Calcification of mitral valve: PLAN: Plan Patient was seen in consultation with Dr. Lombardi. Please see additional documentation from Dr. Lombardi regarding treatment plan. I independently examined this patient, review all the cardiac evaluation here in the hospital including the EKG, cardiac telemetry current medication And I formulated cardiac care plan discussed with the patient nursing staff Agree with the current documentation by the midlevel. We will plan for cardiac catheterization during this admission HPI Consult Data Date of Consult: 06/18/22 [facility] Medical History (HFpEF) heart failure with preserved ejection fraction Arthritis Bilateral extracranial carotid artery stenosis Calcification of mitral valve Cataracts, bilateral Chronic kidney disease (CKD) Essential hypertension Hypothyroidism New onset atrial fibrillation (04/01/22) Obesity Secondary pulmonary arterial hypertension Type 2 diabetes mellitus Uterine cancer Home Medications levothyroxine 100 mcg tablet (Levoxyl) 100 mcg PO DAILY thyroid 09/18/13 [History Last Taken 06/17/22] hydralazine 50 mg tablet 50 mg PO TID blood pressure 03/22/22 [History Last Taken 06/17/22] acetaminophen 650 mg tablet,extended release (Tylenol 8 Hour) 1,300 mg PO Q12H QHS 03/24/22 [History Last Taken 06/17/22] diphenhydramine HCl 25 mg capsule (Benadryl) 25 mg PO QHS PRN Allergy Symptoms 03/24/22 [History Last Taken 06/17/22] ftnwrdzw-wbaapbx-aolf-lutein tablet 1 tab PO DAILY vitamin 03/24/22 [History Last Taken 06/17/22] amlodipine 10 mg tablet 10 mg PO DAILY BP 04/01/22 [History Last Taken 06/17/22] apixaban 2.5 mg tablet (Eliquis) 2.5 mg PO BID #60 tabs 04/01/22 [Rx Last Taken 06/17/22] ascorbic acid (vitamin C) 1,000 mg capsule 1 g PO BID 04/21/22 [History Last Taken 06/17/22] calcium citrate 1,000 mg tablet 1,000 mg PO BID 04/21/22 [History Last Taken 06/17/22] cholecalciferol (vitamin D3) 50 mcg (2,000 unit) capsule 50 mcg PO BID 04/21/22 [History Last Taken 06/17/22] furosemide 40 mg tablet 40 mg PO DAILY #180 tabs 04/22/22 [Rx Last Taken 06/17/22] insulin glargine 100 unit/mL (3 mL) subcutaneous pen (Lantus Solostar U-100 Insulin) 44 unit subcut DAILY diabetes 06/17/22 [History Last Taken 06/14/22] lisinopril 20 mg tablet 20 mg PO QHS 06/17/22 [History Last Taken 06/16/22] Allergy/AdvReac Type Severity Reaction Status Date / Time adhesive tape Allergy Other Verified 04/21/22 15:00 duloxetine Allergy PT UNSURE Verified 04/21/22 15:00 OF REACTION erythromycin base Allergy Rash Verified 04/21/22 15:00 gabapentin Allergy Swelling Verified 04/21/22 15:00 pioglitazone [From Actos] Allergy PT UNSURE Verified 04/21/22 15:00 OF REACTION codeine AdvReac headache Verified 04/21/22 15:00 Family History Father Diabetes Myocardial infarction, Onset Age: 45 Hypertension Aunt Breast cancer Arthritis Brother Myocardial infarction, Onset Age: 50 Mother CVA (cerebral vascular accident) Hypertension Daughter Thyroid disorder Surgical History H/O: hysterectomy History of lobectomy of lung History of total hip arthroplasty Hx of appendectomy Hx of tubal ligation S/P debridement Social History household members: children current occupational status: retired current occupation: nurse Smoking Status: Former smoker quit date: 08/15/1959 Electronic Cigarette Use: not used alcohol intake: current alcohol intake frequency: holidays/special occasions only substance use type: does not use what type of physical activity do you participate in: none do you feel safe at home: Yes Risk Stratification Age >/= 65: Yes HERMINIO Risk Stratification Score: 4 HERMINIO % Risk: 20% Risk Lab / Micro Data Result Diagrams: 06/18/22 05:25 06/18/22 05:25
[2022-06-18] MEDS: Insulin Lispro 100 UNIT/ML INSULN.PEN SC ×2 (12:34→17:14)
[2022-06-18] MEDS: Insulin Glargine-YFGN 100 UNIT/ML Pen 40 UNIT SC (12:43)
[2022-06-18 12:44] LABS: Partial Thromboplast Time 69.8 Seconds (24.1-36.2)
[2022-06-18] MEDS: traMADol 50 MG Tablet PO (16:01)
[2022-06-18 17:16] LABS: Bedside Glucose 177 mg/dL (74-106)
[2022-06-18 17:40] LABS: Bedside Glucose 161 mg/dL (74-106)
[2022-06-18 18:15] LABS: Partial Thromboplast Time 65.8 Seconds (24.1-36.2)
[2022-06-18] MEDS: HEPARIN/D5w 25,000 UNITS 25,000 UNITS/250 ML IV.SOLN. 12 UNITS CONT INF (18:22)
[2022-06-18] MEDS: Atorvastatin Calcium 10 MG Tablet PO (21:58)
[2022-06-18] MEDS: Lisinopril 20 MG Tablet PO (21:58)
[2022-06-18 22:16] LABS: Bedside Glucose 127 mg/dL (74-106)
[2022-06-19] VITALS (14 sets, daily range): BP systolic 116–157; BP diastolic 42–60; PULSE 46–68; RESP 12–18; TEMP 36.5–36.8; O2SAT 94–98
--- NOTE | 2022-06-19 06:05 | PCM.PN.INT ---
Assessment & Plan Assessment/Plan (1) Acute respiratory failure with hypoxia: PLAN: Plan RECOMMENDATIONS: 1. Wean supplemental oxygen to maintain saturations at or above 90%. 2. Continue empiric antimicrobials. 3. Decrease diuretic dosing regimen to once daily given interval rise in creatinine. 4. Encourage incentive spirometer use and mobilize patient as tolerated. 5. Send type and screen. Continue to monitor H&H and transfuse if hemoglobin drops below 7 g/dL. 6. Start PPI therapy. IMPRESSIONS: 1. Acute hypoxemic respiratory failure Most likely multifactorial in etiology with underlying community-acquired pneumonia and decompensated heart failure with preserved ejection fraction contributing. The patient did receive IV diuretic therapy and was placed on BiPAP therapy, with improvement in her overall respiratory status. In light of her radiographic findings noted at presentation, I would recommend that she be continued on antimicrobials. In addition to the aforementioned, the patient is also positive for rhinovirus. Given that her creatinine has increased, will decrease her Lasix dosing regimen today. 2. NSTEMI Most likely secondary to demand ischemia in the setting of #1. Echocardiogram was unrevealing. Cardiology is following to assist with medical management. 3. Anemia The patient's hemoglobin was noted to be 7.5 g/dL this morning. Recommend sending type and screen. The patient will be started on PPI therapy as well. 4. Paroxysmal atrial fibrillation/hypothyroidism/hypertension/hyperlipidemia/obesity/diabetes mellitus Complicates care, management, recovery and prognosis. Continue home medications as indicated. This note was generated with [employer] dictation software. It may contain incorrect words, spelling, and punctuation that were not noted in checking the note before signing. Subjective Subjective The patient was seen and examined at the bedside this morning. Events from the last 24 hours have been reviewed. The patient is currently afebrile, hemodynamically stable and maintaining appropriate oxygen saturations on 2 L/min via nasal cannula. The patient is currently documented to be overall net -1.6 L for the hospitalization. No overnight issues were identified by the nursing staff. Creatinine has increased to 2.29 this morning. Hemoglobin is down to 7.5 g/dL. Objective Data Objective Data The patient's most recent lab work, culture data and imaging studies have all been personally reviewed. Surface echocardiogram demonstrated normal LV size and function with an ejection fraction of 55%. Respiratory viral panel was positive for rhinovirus. Vital Signs: Vital Signs Temp Pulse Resp BP Pulse Ox O2 Del Method O2 Flow Rate 97.7 F L 47 L 16 116/42 L 96 Nasal Cannula 2 06/19/22 05:00 06/19/22 05:00 06/19/22 05:00 06/19/22 05:00 06/19/22 05:00 06/19/22 05:00 06/19/22 05:00 FiO2 30 06/18/22 02:35 Oxygen Flow Rate (L/min) 2 Oxygen Delivery Method Nasal Cannula Weight: 187 lb 13.341 oz Body Mass Index (BMI) 37.6 Intake & Output: Intake and Output for Last 24 Hours 06/17/22 06/18/22 06/19/22 23:59 23:59 23:59 Intake Total 36.00 / 39.00 1796.55 / 1796.55 50 / 50 Output Total 700 / 700 2850 / 2850 Balance -664.00 / -661.00 -1053.45 / -1053.45 50 / 50 Lab / Micro Data Attestation: I reviewed the patient's lab results. Result Diagrams: 06/19/22 05:45 06/19/22 05:45 Labs: Laboratory Results - last 24 hr 06/18/22 05:25: Plt Morphology Comment LARGE, Anisocytosis 2+ 06/18/22 05:25: Sodium 142, Potassium 3.8, Chloride 109 H, Carbon Dioxide 27.0, Anion Gap 6, BUN 77 H, Creatinine 2.10 H, Estim Creat Clear Calc 15.86, Est GFR (MDRD) Af Amer 29 L, Est GFR (MDRD) Non-Af 24 L, BUN/Creatinine Ratio 36.7 H, Glucose 65 L, Calcium 8.7, Total Bilirubin 1.00, AST 32, ALT 35, Alkaline Phosphatase 32 L, Total Protein 6.5, Albumin 2.7 L, Globulin 3.8, Albumin/Globulin Ratio 0.7 L, Triglycerides 41, Cholesterol 93, LDL Cholesterol 29, VLDL Cholesterol 8, HDL Cholesterol 56, TSH 0.48 06/18/22 05:25: B-Natriuretic Peptide 409.9 H 06/18/22 06:03: POC Glucose 64 L 06/18/22 06:38: POC Glucose 115 H 06/18/22 08:10: MRSA (PCR) Negative 06/18/22 12:25: APTT 69.8 H 06/18/22 12:31: POC Glucose 177 H 06/18/22 17:11: POC Glucose 161 H 06/18/22 17:40: APTT 65.8 H 06/18/22 21:54: POC Glucose 127 H Micro: Microbiology 06/18/22 08:00 Urine, Clean Catch Legionella Antigen - Final 06/18/22 08:00 Urine, Clean Catch Streptococcus pneumoniae Antigen (M - Final 06/17/22 17:00 Mucosa - Nose Respiratory Panel (PCR) - Final Rhinovirus 06/17/22 14:57 Nasal Secretion SARS-CoV-2 & FLU Antigen (Rapid) - Final Radiography Diagnostic Testing: Radiology Impression Echocardiogram 06/17/22 17:03 Interpretation Summary The estimated ejection fraction is 55-60 %. Normal LV systolic functionNo significant change from previous echo Ordering Physician: Margarita Jones Performed By: Eliza Noguera RCS Chest X-Ray 06/18/22 08:20 IMPRESSION: Residual bilateral pulmonary infiltrates worse on the left side although there has been a moderate degree of improvement compared to prior study. Electronically Signed: Tae Martin MD at 10:53 EDT , Rhythm Strip Rhythm Strip: A-fib Physical Exam Const alert, oriented x3 and no apparent distress General Appearance: cooperative Nutritional Appearance: obese HEENT normocephalic, head/scalp atraumatic and moist oral mucous membranes Eyes PERRL, EOMs intact bilaterally and conjunctivae normal Neck supple General: trachea midline Chest inspection of chest normal Resp normal respiratory effort and no use of accessory muscles Effort and Inspection: able to speak in complete sentences Auscultation: rales Cardio S1 normal heart sound and S2 normal heart sound Rate: bradycardia GI normal to inspection, nondistended, normoactive bowel sounds Extremity General Extremity: edema bilateral lower extremity; Negative for clubbing Skin General Skin Exam: venous stasis and dermatitis Neuro oriented x3, CN's II-XII intact bilaterally, moves all extremities and no focal motor deficits Psych cooperative and affect normal Charges/Coding Visit Charges Inpatient E&M: 10863 Subs Hosp L3
[2022-06-19] MEDS: Levothyroxine 100 MCG Tablet PO (06:06)
[2022-06-19] MEDS: 0.9% Saline Lock 10 ML Syringe IV ×3 (06:07→09:48)
[2022-06-19 06:09] LABS: Absolute Neutrophil Count 2.8 X10^3/uL (2.0-7.7); Basophil# 0.03 X10^3/uL; Basophil% 0.8 % (0-1); Eosinophil# 0.13 X10^3/uL; Eosinophils% 3.3 % (0-5); Hematocrit 23.8 % (37-47); Hemoglobin 7.5 g/dL (12.0-15.0); Lymphocyte % 12.8 % (19-41); Mean Corp Hgb Conc 31.5 g/dL (32-36); Mean Corpuscular Hgb 28.6 pg (27.0-32.0); Mean Corpuscular Volume 90.8 fL (81-99); Monocyte# 0.42 X10^3/uL; Monocyte% 10.8 % (0-10); NRBC Flagged by Analyzer 0 % (0-5); Neutrophil # 2.77 X10^3/uL (2.7-7.7); POSITIVE DIFFERENTIAL YES; Platelet Count 101 K/mm3 (150-450); RBC Distribution Width CV 19.1 % (11.6-14.6); RBC Distribution Width SD 63.4 fl (35.1-43.9); Red Blood Count 2.62 M/mm3 (4.2-5.4); White Blood Count 3.9 K/mm3 (4.4-11.0)
[2022-06-19 06:12] LABS: Differential Indicated SCAN CRITERIA MET
[2022-06-19] MEDS: traMADol 50 MG Tablet PO (06:17)
[2022-06-19 06:21] LABS: Anion Gap 7 (5-15); BUN 77 mg/dL (7-18); BUN/Creat Ratio 33.6 RATIO (10-20); Calcium,Total 8.4 mg/dL (8.5-10.1); Chloride 109 mmol/L (98-107); Creatinine, Serum 2.29 mg/dL (0.55-1.02); EST Glomerular Filtration Rate 22 mL/min (>60); Est Glom Filt Rate - Afr Amer 27 mL/min (>60); Estimated Creatinine Clearance 14.54 ml/min; Glucose 76 mg/dL (74-106); Magnesium 2.1 mg/dL (1.6-2.6); Phosphorus 3.4 mg/dL (2.5-4.9); Potassium 3.8 mmol/L (3.5-5.1); Sodium Level 145 mmol/L (136-145)
[2022-06-19 06:23] LABS: Partial Thromboplast Time 107.5 Seconds (24.1-36.2)
[2022-06-19 06:25] LABS: Differential Comment SCANNED
[2022-06-19] MEDS: Acetaminophen 325 MG Tablet 650 MG PO ×3 (07:58→22:13)
[2022-06-19] MEDS: hydrALAZINE 50 MG Tablet PO ×3 (07:58→22:13)
--- NOTE | 2022-06-19 09:25 | PCM.RX.CS ---
Consult Pharmacy has been consulted to manage selected antiobiotic: Vancomycin Type of Consult: Follow-up Prior Doses of Antibiotics Received/Current Regimen: The patient received an initial dose of 2000mg x1 yesterday and now the current dose is 750mg IV q24h Labs: Sodium 145 mmol/L (136-145) 06/19/22 05:45 Potassium 3.8 mmol/L (3.5-5.1) 06/19/22 05:45 Chloride 109 mmol/L (98-107) H 06/19/22 05:45 Carbon Dioxide 29.0 mmol/L (21.0-32.0) 06/19/22 05:45 Anion Gap 7 (5-15) 06/19/22 05:45 BUN 77 mg/dL (7-18) H 06/19/22 05:45 Creatinine 2.29 mg/dL (0.55-1.02) H 06/19/22 05:45 Est GFR (MDRD) Af Amer 27 mL/min (>60) L 06/19/22 05:45 Est GFR (MDRD) Non-Af 22 mL/min (>60) L 06/19/22 05:45 BUN/Creatinine Ratio 33.6 RATIO (10-20) H 06/19/22 05:45 Glucose 76 mg/dL (74-106) 06/19/22 05:45 Microbiology: Microbiology 06/18/22 08:00 Urine, Clean Catch Legionella Antigen - Final 06/18/22 08:00 Urine, Clean Catch Streptococcus pneumoniae Antigen (M - Final 06/17/22 17:00 Mucosa - Nose Respiratory Panel (PCR) - Final Rhinovirus 06/17/22 14:57 Nasal Secretion SARS-CoV-2 & FLU Antigen (Rapid) - Final Weight used for dosin.2 kg Estimated Creatinine Clearance: 19.6ml/min Goal Trough: 15-20 mcg/mL Pharmacy Plan for Drug Dosing: The patient's SCr yulissa to 2.29 today (up from 2.10 yesterday) and CrCl is now 19.6ml/min (using adjusted body weight of 61.4kg). Since the CrCl is now <20, will hold next dose tomorrow morning and see what the scheduled vanc trough comes back as before dosing further. The 750mg dose was already given this morning. Pharmacy Service will continue to monitor and adjust dosing as required. Follow-Up Labs: Trough Vancomycin Labs to be done on [date and time ordered]: 06/20/22 07:30
[2022-06-19] MEDS: Furosemide 40 MG/4 ML Vial IV (09:48)
[2022-06-19] MEDS: Aspirin 81 MG TAB.CHEW PO (09:48)
[2022-06-19] MEDS: amLODIPine 10 MG Tablet PO (09:50)
--- NOTE | 2022-06-19 11:25 | PN.HOSP_ITS ---
Subjective Subjective Patient seen and examined. She complains of some longstanding back pain due to arthritis and states she had pain from it today. This pain was controlled by pain medication. She denies any chest pain, palpitations, dizziness, nausea, vomiting or diarrhea. Her Hb has dropped to 7.5. She denies any dark stools or coffee ground emesis. Review of systems is otherwise negative. Objective Data Objective Data Vital Signs: Vital Signs Temp Pulse Resp BP Pulse Ox O2 Del Method O2 Flow Rate 97.9 F 55 L 12 157/53 H 96 Nasal Cannula 2 06/19/22 07:42 06/19/22 07:42 06/19/22 07:42 06/19/22 07:42 06/19/22 07:42 06/19/22 08:00 06/19/22 08:00 FiO2 30 06/18/22 02:35 Oxygen Flow Rate (L/min) 2 Oxygen Delivery Method Nasal Cannula Weight: 187 lb 13.341 oz Body Mass Index (BMI) 37.6 Intake & Output: Intake and Output for Last 24 Hours 06/17/22 06/18/22 06/19/22 23:59 23:59 23:59 Intake Total 36.00 / 39.00 1796.55 / 1796.55 619.8 / 619.8 Output Total 700 / 700 2850 / 2850 250 / 250 Balance -664.00 / -661.00 -1053.45 / -1053.45 369.8 / 369.8 Lab / Micro Data Result Diagrams: 06/19/22 05:45 06/19/22 05:45 Labs: Laboratory Results - last 24 hr 06/18/22 08:10: MRSA (PCR) Negative 06/18/22 12:25: APTT 69.8 H 06/18/22 12:31: POC Glucose 177 H 06/18/22 17:11: POC Glucose 161 H 06/18/22 17:40: APTT 65.8 H 06/18/22 21:54: POC Glucose 127 H 06/19/22 05:45: WBC 3.9 L, RBC 2.62 L, Hgb 7.5 L, Hct 23.8 L, MCV 90.8, MCH 28.6, MCHC 31.5 L, RDW Std Deviation 63.4 H, RDW Coeff of Nael 19.1 H, Plt Count 101 L, Immature Gran % (Auto) 1.300 H, Neut % (Auto) 71.0 H, Lymph % (Auto) 12.8 L, [place] % (Auto) 10.8 H, Eos % (Auto) 3.3, Baso % (Auto) 0.8, Absolute Neuts (auto) 2.8, Absolute Lymphs (auto) 0.50 L, Nucleated RBC % 0, Differential Comment SCANNED, Diff Path Review December06/19/22 05:45: Sodium 145, Potassium 3.8, Chloride 109 H, Carbon Dioxide 29.0, Anion Gap 7, BUN 77 H, Creatinine 2.29 H, Estim Creat Clear Calc 14.54, Est GFR (MDRD) Af Amer 27 L, Est GFR (MDRD) Non-Af 22 L, BUN/Creatinine Ratio 33.6 H, Glucose 76, Calcium 8.4 L, Phosphorus 3.4, Magnesium 2.1 06/19/22 05:45: APTT 107.5 H* 06/19/22 07:30: Blood Type B POSITIVE, Antibody Screen NEGATIVE Micro: Microbiology 06/18/22 08:00 Urine, Clean Catch Legionella Antigen - Final 06/18/22 08:00 Urine, Clean Catch Streptococcus pneumoniae Antigen (M - Final 06/17/22 17:00 Mucosa - Nose Respiratory Panel (PCR) - Final Rhinovirus 06/17/22 14:57 Nasal Secretion SARS-CoV-2 & FLU Antigen (Rapid) - Final Radiography Diagnostic Testing: Radiology Impression Echocardiogram 06/17/22 17:03 Interpretation Summary The estimated ejection fraction is 55-60 %. Normal LV systolic functionNo significant change from previous echo Ordering Physician: Margarita Jones Performed By: Eliza Noguera RCS Rhythm Strip Rhythm Strip: A-fib Physical Exam Const alert, oriented x3 and no apparent distress HEENT head/scalp atraumatic, moist oral mucous membranes and oropharynx normal Head and Scalp: normocephalic Mouth: oral and palatal mucosa normal Eyes PERRL, EOMs intact bilaterally and conjunctivae normal Neck no lymphadenopathy and supple Resp normal respiratory effort, no retractions, no use of accessory muscles and clear to auscultation bilaterally Cardio regular rate, regular rhythm, S1 normal heart sound, S2 normal heart sound and no murmurs GI normal to inspection, nondistended, normoactive bowel sounds, soft to palpation, non-tender and non-distended Extremity normal to inspection, full ROM and no clubbing, cyanosis or edema Neuro oriented x3, CN's II-XII intact bilaterally, moves all extremities and no focal motor deficits Sensorium / Orientation: awake and alert Motor Exam: strength 5/5 throughout Psych affect normal Assessment & Plan Assessment/Plan (1) Paroxysmal atrial fibrillation: (2) Acute respiratory failure with hypoxia: PLAN: Plan #Acute hypoxic respiratory failure * on oxygen by nasal canula * thought to be due to acute on chronic HFpEF and community acquired pneumonia and rhinovirus infecdtion. * has known EF of 60-65%. * on PO diuretics. diuretic dose decreased today * breathing treatment with bronchodilators * titrate oxygen to maintain sats >90% * on IV vancomycina nd zosyn * * #NSTEMI * on heparin drip. On aspirin and statin * cardiology on board. For cath probably Tuesday * * #Acute on chronic anemia * Hb is down to 7.5 today from ~10 * For occult blood ordered. Patient started on IV PPI. Await stool for occult blood and will type and screen. * Transfuse if hemoglobin less than 7. * #Lactic acidosis: resolved #Paroxysmal afib * on heparin drip. Eliquis on hold * currently rate controlled * #Hypertension: continue current meds-amlodipine and hydralazine as well as lisinopril #Type 2 diabetes mellitus * oral hypoglycemics on hold * on lantus 44 units daily. ISS * Accuchecks ACHS * #HYpothyroidism: on synthroid #CKD stage IV: at baseline. #DVT prophylaxis: on heparin drip. Charges/Coding Visit Charges Inpatient E&M: 10638 Subs Hosp L2
[2022-06-19] MEDS: Insulin Lispro 100 UNIT/ML INSULN.PEN SC (12:21)
[2022-06-19] MEDS: Insulin Glargine-YFGN 100 UNIT/ML Pen 40 UNIT SC (12:21)
[2022-06-19 12:45] LABS: Bedside Glucose 166 mg/dL (74-106)
--- NOTE | 2022-06-19 13:45 | PN.CARD_ITS ---
Subjective Subjective Patient seen and evaluated today at bedside, 2 daughters were at bedside at time of evaluation She was sitting out in a chair in intensive care unit She does not have any active symptoms of chest pain Still complaining of back discomfort and mild shortness of breath. Objective Data Vital Signs: Vital Signs Temp Pulse Resp BP Pulse Ox O2 Del Method O2 Flow Rate 97.9 F 46 L 12 157/53 H 94 Nasal Cannula 2 06/19/22 07:42 06/19/22 11:00 06/19/22 07:42 06/19/22 07:42 06/19/22 08:15 06/19/22 08:15 06/19/22 08:15 FiO2 30 06/18/22 02:35 Oxygen Flow Rate (L/min) 2 Oxygen Delivery Method Nasal Cannula Weight: 187 lb 13.341 oz Body Mass Index (BMI) 37.6 Intake & Output: Intake and Output for Last 24 Hours 06/17/22 06/18/22 06/19/22 23:59 23:59 23:59 Intake Total 36.00 / 39.00 1796.55 / 1796.55 619.8 / 619.8 Output Total 700 / 700 2850 / 2850 250 / 250 Balance -664.00 / -661.00 -1053.45 / -1053.45 369.8 / 369.8 Lab / Micro Data Result Diagrams: 06/19/22 05:45 06/19/22 05:45 Labs: Laboratory Results - last 24 hr 06/18/22 12:31: POC Glucose 177 H 06/18/22 17:11: POC Glucose 161 H 06/18/22 17:40: APTT 65.8 H 06/18/22 21:54: POC Glucose 127 H 06/19/22 05:45: WBC 3.9 L, RBC 2.62 L, Hgb 7.5 L, Hct 23.8 L, MCV 90.8, MCH 28.6, MCHC 31.5 L, RDW Std Deviation 63.4 H, RDW Coeff of Nael 19.1 H, Plt Count 101 L, Immature Gran % (Auto) 1.300 H, Neut % (Auto) 71.0 H, Lymph % (Auto) 12.8 L, [place] % (Auto) 10.8 H, Eos % (Auto) 3.3, Baso % (Auto) 0.8, Absolute Neuts (auto) 2.8, Absolute Lymphs (auto) 0.50 L, Nucleated RBC % 0, Differential Comment SCANNED, Diff Path Review December06/19/22 05:45: Sodium 145, Potassium 3.8, Chloride 109 H, Carbon Dioxide 29.0, Anion Gap 7, BUN 77 H, Creatinine 2.29 H, Estim Creat Clear Calc 14.54, Est GFR (MDRD) Af Amer 27 L, Est GFR (MDRD) Non-Af 22 L, BUN/Creatinine Ratio 33.6 H, Glucose 76, Calcium 8.4 L, Phosphorus 3.4, Magnesium 2.1 06/19/22 05:45: APTT 107.5 H* 06/19/22 07:30: Blood Type B POSITIVE, Antibody Screen NEGATIVE 06/19/22 12:19: POC Glucose 166 H Micro: Microbiology 06/19/22 10:20 Stool Stool Occult Blood (SUNSHINE) - Final Occult Blood Positive Rhythm Strip Rhythm Strip: A-fib Cardiology Labs/Tests 06/18/22 17:40: APTT 65.8 H 06/19/22 05:45: WBC 3.9 L, RBC 2.62 L, Hgb 7.5 L, Hct 23.8 L, MCV 90.8, MCH 28.6, MCHC 31.5 L, Plt Count 101 L, Immature Gran % (Auto) 1.300 H, Neut % (Auto) 71.0 H, Lymph % (Auto) 12.8 L, [place] % (Auto) 10.8 H, Eos % (Auto) 3.3, Baso % (Auto) 0.8, Absolute Neuts (auto) 2.8, Nucleated RBC % 0 06/19/22 05:45: Sodium 145, Potassium 3.8, Chloride 109 H, Carbon Dioxide 29.0, Anion Gap 7, BUN 77 H, Creatinine 2.29 H, Est GFR (MDRD) Af Amer 27 L, Est GFR (MDRD) Non-Af 22 L, BUN/Creatinine Ratio 33.6 H, Glucose 76, Calcium 8.4 L, Phosphorus 3.4, Magnesium 2.1 06/19/22 05:45: APTT 107.5 H* Rhythm: EKG: ECHO: Stress Test: Cardiac Cath: PCI: CT Surgery: Holter monitor: EPS: PPM: CXR: Chest CT Scan: Radiography Diagnostic Testing: Radiology Impression Echocardiogram 06/17/22 17:03 Interpretation Summary The estimated ejection fraction is 55-60 %. Normal LV systolic functionNo significant change from previous echo Ordering Physician: aMrgarita Jones Performed By: Eliza Noguera RCS Physical Exam Narrative Review of the traffic monitor specialist showed, underlying atrial fibrillation with controlled rate Cardiac exam S1-S2 is irregular Assessment & Plan Assessment/Plan (1) (HFpEF) heart failure with preserved ejection fraction: QUALIFIERS: Heart failure chronicity: chronic Qualified Code(s): I50.32 - Chronic diastolic (congestive) heart failure (2) Chronic kidney disease (CKD): QUALIFIERS: Chronic kidney disease stage: stage 3 (moderate) Chronic kidney disease stage 3 subtype: stage 3b (GFR 30-44) Qualified Code(s): N18.32 - Chronic kidney disease, stage 3b (3) Type 2 diabetes mellitus: QUALIFIERS: Diabetes mellitus penitentiary insulin use: with penitentiary use Diabetes mellitus complication status: with kidney complications Diabetes mellitus complication detail: with chronic kidney disease Chronic kidney disease stage: stage 3 (moderate) Chronic kidney disease stage 3 subtype: stage 3b (GFR 30-44) Qualified Code(s): E11.22 - Type 2 diabetes m ellitus with diabetic chronic kidney disease; N18.32 - Chronic kidney disease, stage 3b; Z79.4 - jail (current) use of insulin (4) Acute respiratory failure with hypoxia: (5) Paroxysmal atrial fibrillation: (6) Mobitz (type) I (Wenckebach's) atrioventricular block: (7) Non-ST elevated myocardial infarction: PLAN: 76-year-old patient with multiple medical comorbidities Patient had history of paroxysmal atrial fibrillation Diabetes mellitus Chronic renal disease, acute hypoxic respiratory failure, non-STEMI and acute on chronic anemia And in this presentation she has elevated cardiac biomarker with a clinical diagnosis of non-ST elevation [place] Patient has no active symptoms of chest pain Further evaluation by echocardiogram LV function is preserved, ejection fraction in the range of 60 to 65% She does not have any active chest pain noted she has drop in her hemoglobin to 7.5 also she has elevated creatinine . Cardiac care plan recommendations; 1. DC the heparin as well as aspirin due to the significant drop in her hemoglobin 2. We will continue to monitor and follow-up clinically Patient has no active symptoms of chest pain and will discuss further cardiac evaluation based on her clinical progress She is not a candidate for cardiac cath at this point. I discussed in detail the cardiac care plan with the patient and her 2 daughters and the nursing staff
[2022-06-19 17:40] LABS: Bedside Glucose 107 mg/dL (74-106)
[2022-06-19] MEDS: Lisinopril 20 MG Tablet PO (22:13)
[2022-06-19] MEDS: Atorvastatin Calcium 10 MG Tablet PO (22:13)
[2022-06-19 23:36] LABS: Bedside Glucose 102 mg/dL (74-106)
[2022-06-20] VITALS (15 sets, daily range): BP systolic 133–170; BP diastolic 47–66; PULSE 46–69; RESP 16–18; TEMP 36.3–36.9; O2SAT 93–97
[2022-06-20 06:03] LABS: Absolute Lymphocyte Count 0.33 X10^3/uL (0.83-4.51); Absolute Neutrophil Count 2.7 X10^3/uL (2.0-7.7); Basophil# 0.03 X10^3/uL; Basophil% 0.8 % (0-1); Eosinophil# 0.14 X10^3/uL; Eosinophils% 3.9 % (0-5); Hematocrit 25.6 % (37-47); Hemoglobin 8.2 g/dL (12.0-15.0); Lymphocyte # 0.33 X10^3/ul (0.83-4.51); Lymphocyte % 9.1 % (19-41); Mean Corpuscular Hgb 29.2 pg (27.0-32.0); Mean Corpuscular Volume 91.1 fL (81-99); Mean Platelet Vol. 13.1 fl (6.2-12.0); NRBC Flagged by Analyzer 0 % (0-5); Neutrophil # 2.69 X10^3/uL (2.7-7.7); Neutrophil % 74.1 % (47-70); POSITIVE DIFFERENTIAL YES; Platelet Count 142 K/mm3 (150-450); RBC Distribution Width CV 18.8 % (11.6-14.6); RBC Distribution Width SD 62.5 fl (35.1-43.9); Red Blood Count 2.81 M/mm3 (4.2-5.4); White Blood Count 3.6 K/mm3 (4.4-11.0)
[2022-06-20 06:14] LABS: Differential Indicated SCAN CRITERIA MET
[2022-06-20 06:27] LABS: Anion Gap 5 (5-15); BUN 72 mg/dL (7-18); BUN/Creat Ratio 32.1 RATIO (10-20); Calcium,Total 8.2 mg/dL (8.5-10.1); Chloride 108 mmol/L (98-107); Creatinine, Serum 2.24 mg/dL (0.55-1.02); EST Glomerular Filtration Rate 22 mL/min (>60); Est Glom Filt Rate - Afr Amer 27 mL/min (>60); Estimated Creatinine Clearance 14.87 ml/min; Glucose 52 mg/dL (74-106); Potassium 3.4 mmol/L (3.5-5.1); Sodium Level 142 mmol/L (136-145)
[2022-06-20 06:28] LABS: Anisocytosis 2+; Platelet Estimate SLT DEC (ADEQ)
[2022-06-20] MEDS: Acetaminophen 325 MG Tablet 650 MG PO ×3 (06:42→23:37)
[2022-06-20] MEDS: Levothyroxine 100 MCG Tablet PO (06:42)
[2022-06-20] MEDS: hydrALAZINE 50 MG Tablet PO ×3 (06:45→23:37)
--- NOTE | 2022-06-20 06:54 | NURSING ---
Pt blood sugar was 49 at 0635 this morning. Pt was asymptomatic. Provided orange juice, beronica crackers and peanut butter. Retook blood sugar 15 minutes later and was 65. Pt now ordering breakfast.
--- NOTE | 2022-06-20 07:25 | PN.CC_ITS ---
Assessment & Plan Assessment/Plan (1) Acute respiratory failure with hypoxia: PLAN: Plan RECOMMENDATIONS: 1. Continue empiric antimicrobials. 2. Diuretic regimen per cardiology. 3. Encourage incentive spirometer use and mobilize patient as tolerated. 4. Continue to monitor H&H daily. Transfuse if hemoglobin drops below 7 g/dL. 5. Continue PPI therapy. 6. Encourage incentive spirometer use and mobilize patient as tolerated. 7. Given the patient's lack of ICU or pulmonary needs, will sign off. Please call with any additional questions. IMPRESSIONS: 1. Acute hypoxemic respiratory failure Most likely multifactorial in etiology with underlying community-acquired pneumonia and decompensated heart failure with preserved ejection fraction contributing. The patient did receive IV diuretic therapy and was placed on BiPAP therapy, with improvement in her overall respiratory status. In light of her radiographic findings noted at presentation, I would recommend that she be continued on antimicrobials. In addition to the aforementioned, the patient is also positive for rhinovirus. I will defer additional dosing of her diuretics to cardiology. 2. NSTEMI Most likely secondary to demand ischemia in the setting of #1. Echocardiogram was unrevealing. Cardiology is following to assist with medical management. 3. Anemia Continue to monitor H&H daily and transfuse if hemoglobin drops below 7 g/dL. Continue PPI therapy as ordered. 4. Paroxysmal atrial fibrillation/hypothyroidism/hypertension/hyperlipidemia/obesity/diabetes mellitus Complicates care, management, recovery and prognosis. Continue home medications as indicated. This note was generated with [employer] dictation software. It may contain incorrect words, spelling, and punctuation that were not noted in checking the note before signing. Subjective Subjective The patient was seen and examined at the bedside this morning. Events from the last 24 hours have been reviewed. The patient is currently afebrile, hemodynamically stable and maintaining appropriate oxygen saturations on room air. Hemoglobin is stable at 8.2 g/dL. Potassium is low at 3.4. Creatinine is stable at 2.24. Overall, the patient's breathing quality continues to improve. Objective Data Objective Data The patient's most recent lab work, culture data and imaging studies have all been personally reviewed. Surface echocardiogram demonstrated normal LV size and function with an ejection fraction of 55%. Respiratory viral panel was posi tive for rhinovirus. Vital Signs: Vital Signs Temp Pulse Resp BP Pulse Ox O2 Del Method O2 Flow Rate 97.3 F L 50 L 18 146/51 H 95 Room Air 2 06/20/22 06:49 06/20/22 06:49 06/20/22 06:49 06/20/22 06:49 06/20/22 06:49 06/20/22 06:49 06/19/22 14:30 FiO2 30 06/18/22 02:35 Oxygen Flow Rate (L/min) 2 Oxygen Delivery Method Room Air Weight: 190 lb 11.198 oz Body Mass Index (BMI) 37.6 Intake & Output: Intake and Output for Last 24 Hours 06/18/22 06/19/22 06/20/22 23:59 23:59 22:59 Intake Total 1796.55 / 1796.55 824.8 / 1084.8 530 / 530 Output Total 2850 / 2850 450 / 550 100 / 100 Balance -1053.45 / -1053.45 374.8 / 534.8 430 / 430 Lab / Micro Data Attestation: I reviewed the patient's lab results. Result Diagrams: 06/20/22 05:40 06/20/22 05:40 Labs: Laboratory Results - last 24 hr 06/19/22 07:30: Blood Type B POSITIVE, Antibody Screen NEGATIVE 06/19/22 12:19: POC Glucose 166 H 06/19/22 17:19: POC Glucose 107 H 06/19/22 22:12: POC Glucose 102 06/20/22 05:40: WBC 3.6 L, RBC 2.81 L, Hgb 8.2 L, Hct 25.6 L, MCV 91.1, MCH 29.2, MCHC 32.0, RDW Std Deviation 62.5 H, RDW Coeff of Nael 18.8 H, Plt Count 142 L, MPV 13.1 H, Immature Gran % (Auto) 1.100 H, Neut % (Auto) 74.1 H, Lymph % (Auto) 9.1 L, [place] % (Auto) 11.0 H, Eos % (Auto) 3.9, Baso % (Auto) 0.8, Absolu te Neuts (auto) 2.7, Absolute Lymphs (auto) 0.33 L, Nucleated RBC % 0, Diff Path Review May foll, Platelet Estimate SLT DEC, Anisocytosis 2+ 06/20/22 05:40: Sodium 142, Potassium 3.4 L, Chloride 108 H, Carbon Dioxide 29.0, Anion Gap 5, BUN 72 H, Creatinine 2.24 H, Estim Creat Clear Calc 14.87, Est GFR (MDRD) Af Amer 27 L, Est GFR (MDRD) Non-Af 22 L, BUN/Creatinine Ratio 32.1 H, Glucose 52 L, Calcium 8.2 L Micro: Microbiology 06/19/22 10:20 Stool Stool Occult Blood (SUNSHINE) - Final Occult Blood Positive 06/18/22 08:00 Urine, Clean Catch Legionella Antigen - Final 06/18/22 08:00 Urine, Clean Catch Streptococcus pneumoniae Antigen (M - Fin al 06/17/22 17:00 Mucosa - Nose Respiratory Panel (PCR) - Final Rhinovirus 06/17/22 14:57 Nasal Secretion SARS-CoV-2 & FLU Antigen (Rapid) - Final Radiography Diagnostic Testing: Radiology Impression Echocardiogram 06/17/22 17:03 Interpretation Summary The estimated ejection fraction is 55-60 %. Normal LV systolic functionNo significant change from previous echo Ordering Physician: Margarita Jones Performed By: Eliza Noguera RCS Chest X-Ray 06/18/22 08:20 IMPRESSION: Residual bilateral pulmonary infiltrates worse on the left side although there has been a moderate degree of improvement compared to prior study. Electronically Signed: Tae Martin MD at 10:53 EDT , Rhythm Strip Rhythm Strip: A-fib Physical Exam Const alert, oriented x3 and no apparent distress General Appearance: cooperative Nutritional Appearance: obese HEENT normocephalic, head/scalp atraumatic and moist oral mucous membranes Eyes PERRL, EOMs intact bilaterally and conjunctivae normal Neck supple General: trachea midline Chest inspection of chest normal Resp normal respiratory effort and no use of accessory muscles Effort and Inspection: able to speak in complete sentences Auscultation: Negative for rales, rhonchi or wheezes Cardio S1 normal heart sound and S2 normal heart sound Rate: bradycardia GI normal to inspection, nondistended, normoactive bowel sounds Extremity General Extremity: edema bilateral lower extremity; Negative for clubbing Skin General Skin Exam: venous stasis and dermatitis Neuro oriented x3, CN's II-XII intact bilaterally, moves all extremities and no focal motor deficits Psych cooperative and affect normal Charges/Coding Visit Charges Inpatient E&M: 15183 Subs Hosp L2
[2022-06-20 08:11] LABS: Bedside Glucose 49 mg/dL (74-106)
[2022-06-20 08:11] LABS: Bedside Glucose 65 mg/dL (74-106)
[2022-06-20] MEDS: Potassium Chloride Oral Tablet 20 MEQ 40 MEQ PO (09:13)
[2022-06-20] MEDS: Furosemide 40 MG Tablet PO (09:27)
[2022-06-20 09:55] LABS: Vancomycin, Trough Level 17.3 ug/mL (5.0-15.0)
[2022-06-20] MEDS: amLODIPine 10 MG Tablet PO (11:37)
[2022-06-20] MEDS: Insulin Glargine-YFGN 100 UNIT/ML Pen 40 UNIT SC (11:38)
[2022-06-20] MEDS: Insulin Lispro 100 UNIT/ML INSULN.PEN SC (11:38)
--- NOTE | 2022-06-20 12:04 | PN.HOSP_ITS ---
Subjective Subjective Patient seen and examined. She feels well and has no complaints today. Review of systems otherwise negative. Her stool for occult blood was positive. Patient and family now opting for conservative management for her non-STEMI and refused cardiac cath. Objective Data Objective Data Vital Signs: Vital Signs Temp Pulse Resp BP Pulse Ox O2 Del Method O2 Flow Rate 97.7 F L 65 18 164/51 H 95 Room Air 2 06/20/22 09:25 06/20/22 09:25 06/20/22 09:25 06/20/22 09:25 06/20/22 09:25 06/20/22 09:25 06/19/22 14:30 FiO2 30 06/18/22 02:35 Oxygen Flow Rate (L/min) 2 Oxygen Delivery Method Room Air Weight: 190 lb 11.198 oz Body Mass Index (BMI) 37.6 Intake & Output: Intake and Output for Last 24 Hours 06/18/22 06/19/22 06/20/22 23:59 23:59 22:59 Intake Total 1796.55 / 1796.55 824.8 / 1084.8 640 / 640 Output Total 2850 / 2850 450 / 550 100 / 100 Balance -1053.45 / -1053.45 374.8 / 534.8 540 / 540 Lab / Micro Data Result Diagrams: 06/20/22 05:40 06/20/22 05:40 Labs: Laboratory Results - last 24 hr 06/19/22 17:19: POC Glucose 107 H 06/19/22 22:12: POC Glucose 102 06/20/22 05:40: WBC 3.6 L, RBC 2.81 L, Hgb 8.2 L, Hct 25.6 L, MCV 91.1, MCH 29.2, MCHC 32.0, RDW Std Deviation 62.5 H, RDW Coeff of Nael 18.8 H, Plt Count 142 L, MPV 13.1 H, Immature Gran % (Auto) 1.100 H, Neut % (Auto) 74.1 H, Lymph % (Auto) 9.1 L, [place] % (Auto) 11.0 H, Eos % (Auto) 3.9, Baso % (Auto) 0.8, Absolute Neuts (auto) 2.7, Absolute Lymphs (auto) 0.33 L, Nucleated RBC % 0, Diff Path Review May , Platelet Estimate SLT DEC, Anisocytosis 2+ 06/20/22 05:40: Sodium 142, Potassium 3.4 L, Chloride 108 H, Carbon Dioxide 29.0, Anion Gap 5, BUN 72 H, Creatinine 2.24 H, Estim Creat Clear Calc 14.87, Est GFR (MDRD) Af Amer 27 L, Est GFR (MDRD) Non-Af 22 L, BUN/Creatinine Ratio 32.1 H, Glucose 52 L, Calcium 8.2 L 06/20/22 06:34: POC Glucose 49 L 06/20/22 06:53: POC Glucose 65 L 06/20/22 09:15: Vancomycin Trough 17.3 H Micro: Microbiology 06/18/22 07:45 Blood Culture (Wb) - Right Hand Blood Culture - Preliminary No growth in 48 hours. 06/18/22 07:30 Blood Culture (Wb) - Anticubital Right Blood Culture - Preliminary No growth in 48 hours. 06/19/22 10:20 Stool Stool Occult Blood (SUNSHINE) - Final Occult Blood Positive 06/18/22 08:00 Urine, Clean Catch Legionella Antigen - Final 06/18/22 08:00 Urine, Clean Catch Streptococcus pneumoniae Antigen (M - Final 06/17/22 17:00 Mucosa - Nose Respiratory Panel (PCR) - Final Rhinovirus 06/17/22 14:57 Nasal Secretion SARS-CoV-2 & FLU Antigen (Rapid) - Final Rhythm Strip Rhythm Strip: A-fib Physical Exam Const alert, oriented x3 and no apparent distress HEENT head/scalp atraumatic, moist oral mucous membranes and oropharynx normal Head and Scalp: normocephalic Mouth: oral and palatal mucosa normal Eyes PERRL, EOMs intact bilaterally and conjunctivae normal Neck no lymphadenopathy and supple Resp normal respiratory effort, no retractions, no use of accessory muscles and clear to auscultation bilaterally Cardio regular rate, regular rhythm, S1 normal heart sound, S2 normal heart sound and no murmurs GI normal to inspection, nondistended, normoactive bowel sounds, soft to palpation, non-tender and non-distended Extremity normal to inspection, full ROM and no clubbing, cyanosis or edema Neuro oriented x3, CN's II-XII intact bilaterally, moves all extremities and no focal motor deficits Sensorium / Orientation: awake and alert Motor Exam: strength 5/5 throughout Psych affect normal Assessment & Plan Assessment/Plan (1) Paroxysmal atrial fibrillation: (2) Acute respiratory failure with hypoxia: PLAN: Plan #Acute hypoxic respiratory failure * resolved. Now on room air. * thought to be due to acute on chronic HFpEF and community acquired pneumonia and rhinovirus infection. * has known EF of 60-65%. * on PO lasix 40mg daily * breathing treatment with bronchodilators * titrate oxygen to maintain sats >90% * on IV vancomycin and zosyn * * #NSTEMI * Heparin drip discontinued. On aspirin and statin. Aspirin held on account of anemia. * Patient refusing cardiac cath as she says she is part of the 1% of people who reacts to a whole lot of things. She states she has had reactions and complications in previous times when she has had any procedures or surgeries. She would therefore prefer medical management cardiac cath. * Cardiology on board. * * #Acute on chronic anemia * hb today is 8.2 * stool for occult blood positive * now off heparin drip * GI consulted * on IV PPI * #Lactic acidosis: resolved #Paroxysmal afib * Eliquis on hold * currently rate controlled * #Hypertension: continue current meds-amlodipine and hydralazine as well as lisinopril #Type 2 diabetes mellitus * oral hypoglycemics on hold * on lantus 44 units daily. ISS * Accuchecks ACHS * #HYpothyroidism: on synthroid #CKD stage IV: at baseline. #DVT prophylaxis: SCDs. heparin drip discontinued. SCDs as stool occult blood is positive. Charges/Coding Visit Charges Inpatient E&M: 14641 Subs Hosp L2
--- NOTE | 2022-06-20 12:16 | PCM.RX.CS ---
Consult Pharmacy has been consulted to manage selected antiobiotic: Vancomycin Type of Consult: Follow-up Prior Doses of Antibiotics Received/Current Regimen: scheduled dose was currently being held but patient had been on 750mg IV q24h Labs: Sodium 142 mmol/L (136-145) 06/20/22 05:40 Potassium 3.4 mmol/L (3.5-5.1) L 06/20/22 05:40 Chloride 108 mmol/L (98-107) H 06/20/22 05:40 Carbon Dioxide 29.0 mmol/L (21.0-32.0) 06/20/22 05:40 Anion Gap 5 (5-15) 06/20/22 05:40 BUN 72 mg/dL (7-18) H 06/20/22 05:40 Creatinine 2.24 mg/dL (0.55-1.02) H 06/20/22 05:40 Est GFR (MDRD) Af Amer 27 mL/min (>60) L 06/20/22 05:40 Est GFR (MDRD) Non-Af 22 mL/min (>60) L 06/20/22 05:40 BUN/Creatinine Ratio 32.1 RATIO (10-20) H 06/20/22 05:40 Glucose 52 mg/dL (74-106) L 06/20/22 05:40 Vancomycin Trough 17.3 ug/mL (5.0-15.0) H 06/20/22 09:15 Microbiology: Microbiology 06/18/22 07:45 Blood Culture (Wb) - Right Hand Blood Culture - Preliminary No growth in 48 hours. 06/18/22 07:30 Blood Culture (Wb) - Anticubital Right Blood Culture - Preliminary No growth in 48 hours. 06/19/22 10:20 Stool Stool Occult Blood (SUNSHINE) - Final Occult Blood Positive 06/18/22 08:00 Urine, Clean Catch Legionella Antigen - Final 06/18/22 08:00 Urine, Clean Catch Streptococcus pneumoniae Antigen (M - Final 06/17/22 17:00 Mucosa - Nose Respiratory Panel (PCR) - Final Rhinovirus 06/17/22 14:57 Nasal Secretion SARS-CoV-2 & FLU Antigen (Rapid) - Final Weight used for dosin.5 kg Estimated Creatinine Clearance: 20ml/min Goal Trough: 15-20 mcg/mL Pharmacy Plan for Drug Dosing: The vanc level drawn at 09:15 today (approx 26 hours after the previous dose - note that 1 hour was added due to the time change last night) was 17.3. This is below 20 so will dose again today with 750mg x1. Will continue to dose off random levels for now since the patient's CrCl is still at 20. If renal function improves, may be able to return to scheduled dosing. Repeat another random level 24 hours from when the dose is given today. Pharmacy Service will continue to monitor and adjust dosing as required. Follow-Up Labs: Trough Vancomycin - random Labs to be done on [date and time ordered]: 06/21/22 12:00
[2022-06-20 12:31] LABS: Bedside Glucose 239 mg/dL (74-106)
--- NOTE | 2022-06-20 14:33 | PCM.PN.CARD ---
Subjective Subjective Patient seen and evaluated today. At side along with the nursing staff She was sitting out in a chair comfortable she has no symptoms to report Objective Data Vital Signs: Vital Signs Temp Pulse Resp BP Pulse Ox O2 Del Method O2 Flow Rate 97.7 F L 69 16 167/66 H 97 Room Air 2 06/20/22 13:41 06/20/22 13:41 06/20/22 13:41 06/20/22 13:41 06/20/22 13:41 06/20/22 13:41 06/19/22 14:30 FiO2 30 06/18/22 02:35 Oxygen Flow Rate (L/min) 2 Oxygen Delivery Method Room Air Weight: 190 lb 11.198 oz Body Mass Index (BMI) 37.6 Intake & Output: Intake and Output for Last 24 Hours 06/18/22 06/19/22 06/20/22 23:59 23:59 22:59 Intake Total 1796.55 / 1796.55 824.8 / 1084.8 1325 / 1325 Output Total 2850 / 2850 450 / 550 100 / 100 Balance -1053.45 / -1053.45 374.8 / 534.8 1225 / 1225 Lab / Micro Data Result Diagrams: 06/20/22 05:40 06/20/22 05:40 Labs: Laboratory Results - last 24 hr 06/19/22 17:19: POC Glucose 107 H 06/19/22 22:12: POC Glucose 102 06/20/22 05:40: WBC 3.6 L, RBC 2.81 L, Hgb 8.2 L, Hct 25.6 L, MCV 91.1, MCH 29.2, MCHC 32.0, RDW Std Deviation 62.5 H, RDW Coeff of Nael 18.8 H, Plt Count 142 L, MPV 13.1 H, Immature Gran % (Auto) 1.100 H, Neut % (Auto) 74.1 H, Lymph % (Auto) 9.1 L, [place] % (Auto) 11.0 H, Eos % (Auto) 3.9, Baso % (Auto) 0.8, Absolute Neuts (auto) 2.7, Absolute Lymphs (auto) 0.33 L, Nucleated RBC % 0, Diff Path Review December, Platelet Estimate SLT DEC, Anisocytosis 2+ 06/20/22 05:40: Sodium 142, Potassium 3.4 L, Chloride 108 H, Carbon Dioxide 29.0, Anion Gap 5, BUN 72 H, Creatinine 2.24 H, Estim Creat Clear Calc 14.87, Est GFR (MDRD) Af Amer 27 L, Est GFR (MDRD) Non-Af 22 L, BUN/Creatinine Ratio 32.1 H, Glucose 52 L, Calcium 8.2 L 06/20/22 06:34: POC Glucose 49 L 06/20/22 06:53: POC Glucose 65 L 06/20/22 09:15: Vancomycin Trough 17.3 H 06/20/22 11:36: POC Glucose 239 H Micro: Microbiology 06/18/22 07:45 Blood Culture (Wb) - Right Hand Blood Culture - Preliminary No growth in 48 hours. 06/18/22 07:30 Blood Culture (Wb) - Anticubital Right Blood Culture - Preliminary No growth in 48 hours. Rhythm Strip Rhythm Strip: A-fib Cardiology Labs/Tests 06/20/22 05:40: WBC 3.6 L, RBC 2.81 L, Hgb 8.2 L, Hct 25.6 L, MCV 91.1, MCH 29.2, MCHC 32.0, Plt Count 142 L, MPV 13.1 H, Immature Gran % (Auto) 1.100 H, Neut % (Auto) 74.1 H, Lymph % (Auto) 9.1 L, [place] % (Auto) 11.0 H, Eos % (Auto) 3.9, Baso % (Auto) 0.8, Absolute Neuts (auto) 2.7, Nucleated RBC % 0 06/20/22 05:40: Sodium 142, Potassium 3.4 L, Chloride 108 H, Carbon Dioxide 29.0, Anion Gap 5, BUN 72 H, Creatinine 2.24 H, Est GFR (MDRD) Af Amer 27 L, Est GFR (MDRD) Non-Af 22 L, BUN/Creatinine Ratio 32.1 H, Glucose 52 L, Calcium 8.2 L Rhythm: EKG: ECHO: Stress Test: Cardiac Cath: PCI: CT Surgery: Holter monitor: EPS: PPM: CXR: Chest CT Scan: Physical Exam Narrative Cardiac exam S1-S2 is regular Normal respiratory effort Auscultation negative for rales rhonchi or wheezes Mild bilateral lower extremity edema is noted Assessment & Plan Assessment/Plan (1) Chronic kidney disease (CKD): QUALIFIERS: Chronic kidney disease stage: stage 3 (moderate) Chronic kidney disease stage 3 subtype: stage 3b (GFR 30-44) Qualified Code(s): N18.32 - Chronic kidney disease, stage 3b (2) Non-ST elevated myocardial infarction: (3) Hypothyroidism: QUALIFIERS: Hypothyroidism type: acquired Qualified Code(s): E03.9 - Hypothyroidism, unspecified (4) Type 2 diabetes mellitus: QUALIFIERS: Chronic kidney disease stage: stage 3 (moderate) Chronic kidney disease stage 3 subtype: stage 3b (GFR 30-44) Diabetes mellitus complication detail: with chronic kidney disease Diabetes mellitus complication status: with kidney complications Diabetes mellitus truck terminal manager insulin use: with truck terminal manager use Qualified Code(s): E11.22 - Type 2 diabetes mellitus with diabetic chronic kidney disease; N18.32 - Chronic kidney disease, stage 3b; Z79.4 - termite inspector (current) use of insulin (5) Paroxysmal atrial fibrillation: PLAN: 76-year-old patient with multiple medical comorbidities On this admission she has acute hypoxic respiratory failure and non-ST elevation MT with the paroxysmal A. fib/atrial flutter plan is admit Covid problem include diabetes mellitus, hypertension, hyperlipidemia Patient has elevated cardiac biomarkers/high sensitive troponin with type II MT with demand myocardial ischemia in the setting of acute hypoxic respiratory failure and pneumonia which she has been currently treated for. Cardiac care plan recommendations; 1. Patient has been stable from cardiac standpoint she does not have any active chest pain 2. Noted patient had anemia with a drop of her hemoglobin and she is scheduled to undergo GI evaluation Will hold aspirin Heparin at present time she did have a occult positive blood test And also patient is a high risk for stroke due to paroxysmal atrial fibrillation. Based on [id number] score high risk for stroke I discussed with the patient need for evaluation for watchman due to risk of bleed and anemia 3. The echocardiographic evaluation in this admission revealed normal LV systolic function with no significant valvular abnormality.
[2022-06-20 17:10] LABS: Bedside Glucose 122 mg/dL (74-106)
[2022-06-20] MEDS: Atorvastatin Calcium 10 MG Tablet PO (23:41)
[2022-06-20] MEDS: Lisinopril 20 MG Tablet PO (23:41)
[2022-06-20] MEDS: 0.9% Saline Lock 10 ML Syringe IV (23:45)
[2022-06-20 23:51] LABS: Bedside Glucose 149 mg/dL (74-106)
[2022-06-21] VITALS (20 sets, daily range): BP systolic 129–180; BP diastolic 43–54; PULSE 54–70; RESP 16–18; TEMP 36.4–36.8; O2SAT 93–99; BMI 37.5
--- NOTE | 2022-06-21 | EGD_PTH ---
PATIENT: MIROSLAVA OSWALD LOC: [facility] U#:[id number] AGE/SX: 76/F ROOM: [facility] RE06/17/[address]: Dr. Laurie Desir MD : [id number] BED: 1 DIS: 06/22/2022 SPEC #: [id number] RECD: 06/21/22 17:19 STATUS: JOANNA SCANLON #: [id number] VIANCA: 06/21/22 00:[address]: Frandy Herndon DEPT: SURGICAL PATHOLOGY RECD BY: Ede Izquierdo ENTERED: 06/22/22 08:42 SP TYPE: EGD BIOPSY OTHR DR: MD Dr. Amie Hernandez MD Dr. Autumn L White, MD Dr. Derek Brown, DO Dr. David Kittoe, MD Dr. 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 AM:cristobal 06/23/2022 MICROSCOPIC DESCRIPTION Slides are reviewed. GROSS DESCRIPTION Received in fixative is one container labeled with the patient's name and designated biopsy duodenal ulcer. The specimen consists of two irregular fragments of light pitts soft tissue that in aggregate measure 0.8 x 0.5 x 0.1 cm. The specimen is totally submitted in one cassette. / SJ:cristobal 06/22/2022 TC:5 CPT: 58284
[2022-06-21] MEDS: Acetaminophen 325 MG Tablet 650 MG PO ×3 (06:35→21:38)
[2022-06-21] MEDS: hydrALAZINE 50 MG Tablet PO ×3 (06:35→21:37)
[2022-06-21] MEDS: Levothyroxine 100 MCG Tablet PO (06:35)
[2022-06-21 07:10] LABS: Bedside Glucose 91 mg/dL (74-106)
--- NOTE | 2022-06-21 07:26 | NURSING ---
Documentation reviewed with Ariana HATFIELD preceptee
[2022-06-21 08:00] LABS: Absolute Lymphocyte Count 0.46 X10^3/uL (0.83-4.51); Absolute Neutrophil Count 2.3 X10^3/uL (2.0-7.7); Basophil# 0.04 X10^3/uL; Basophil% 1.2 % (0-1); Eosinophil# 0.17 X10^3/uL; Eosinophils% 5.1 % (0-5); Hematocrit 26.4 % (37-47); Hemoglobin 8.7 g/dL (12.0-15.0); Lymphocyte # 0.46 X10^3/ul (0.83-4.51); Lymphocyte % 13.7 % (19-41); Mean Corpuscular Hgb 29.8 pg (27.0-32.0); Mean Corpuscular Volume 90.4 fL (81-99); Mean Platelet Vol. 12.1 fl (6.2-12.0); Monocyte# 0.39 X10^3/uL; Monocyte% 11.6 % (0-10); NRBC Flagged by Analyzer 0 % (0-5); Neutrophil # 2.26 X10^3/uL (2.7-7.7); Neutrophil % 67.2 % (47-70); POSITIVE DIFFERENTIAL YES; Platelet Count 142 K/mm3 (150-450); RBC Distribution Width CV 18.9 % (11.6-14.6); RBC Distribution Width SD 62.7 fl (35.1-43.9); Red Blood Count 2.92 M/mm3 (4.2-5.4); White Blood Count 3.4 K/mm3 (4.4-11.0)
[2022-06-21 08:03] LABS: Differential Indicated SCAN CRITERIA MET
[2022-06-21 08:33] LABS: Anisocytosis 2+; Hypochromasia 1+
[2022-06-21 08:38] LABS: Anion Gap 7 (5-15); BUN 54 mg/dL (7-18); BUN/Creat Ratio 26.6 RATIO (10-20); Calcium,Total 8.3 mg/dL (8.5-10.1); Chloride 111 mmol/L (98-107); Creatinine, Serum 2.03 mg/dL (0.55-1.02); EST Glomerular Filtration Rate 25 mL/min (>60); Est Glom Filt Rate - Afr Amer 30 mL/min (>60); Estimated Creatinine Clearance 16.41 ml/min; Glucose 97 mg/dL (74-106); Potassium 3.6 mmol/L (3.5-5.1); Sodium Level 143 mmol/L (136-145)
[2022-06-21] MEDS: Furosemide 40 MG Tablet PO (10:38)
[2022-06-21] MEDS: amLODIPine 10 MG Tablet PO (10:38)
[2022-06-21] MEDS: 0.9% Saline Lock 10 ML Syringe IV (10:44)
[2022-06-21 11:56] LABS: Bedside Glucose 113 mg/dL (74-106)
[2022-06-21 12:24] LABS: Pathologist Review Reviewed
[2022-06-21 12:36] LABS: Pathologist Review Reviewed
[2022-06-21 12:59] LABS: Pathologist Review Reviewed
--- NOTE | 2022-06-21 13:03 | CON.PCM_ITS ---
Assessment & Plan Assessment/Plan (1) Anemia: PLAN: She has anemia chronic disease in the setting of decreased hemoglobin on antiplatelet therapy and anticoagulation. She would benefit from an upper endoscopy to evaluate upper GI tract to see if she can be treated medically with anticoagulation and antiplatelet therapy for CAD and recent non-ST segment elevation KS. She was explained alternatives, risk, benefits including not withstanding bleeding, infection, sepsis, perforation, need for emergent surgery . She will have an ASA of 3. Recommend continue PPI therapy as previously ordered, watch kidney function. Hold hold a.m. dose of Eliquis. HPI Consult Data Date of Consult: 06/21/22 HPI Narrative Reason for Consultation: Anemia HPI Narrative: MIROSLAVA OSWALD, is a 76 F who presented to the ER on 06/17/2022 with shortness of breath and upper respiratory symptoms.? She was placed on BiPAP therapy in the Emergency Department for respiratory distress.? She was admitted for acute respiratory failure and hypoxia and non-ST elevated myocardial infarction.? She has a past medical history of hypertension, chronic renal disease, paroxysmal atrial fibrillation, heart failure with preserved ejection fraction, bradycardia in which beta-amber has been discontinued, hypothyroidism, anemia, and diabetes mellitus type 2. She was found to be a an acute pulmonary edema secondary to CHF. She was started on high-dose aspirin and heparin for non-ST segment elevation KS. It was decided to pursue conservative therapy as she had a drop in her he moglobin. She has been in and out of atrial fibrillation require anticoagulation with Eliquis. About 4 weeks ago she had acute onset of abdominal pain and she had some dark stools. She was noted to have worsening pain with eating rating to her back so her daughter who is a nurse practitioner put her on Nexium. Her pain got a little bit better as she continued on the Nexium therapy. Since being in the hospital however her hemoglobin has been declining therefore I was consulted for management of her worsening anemia. [facility] Medical History (HFpEF) heart failure with preserved ejection fraction Arthritis Bilateral extracranial carotid artery stenosis Calcification of mitral valve Cataracts, bilateral Chronic kidney disease (CKD) Essential hypertension Hypothyroidism New onset atrial fibrillation (04/01/22) Obesity Secondary pulmonary arterial hypertension Type 2 diabetes mellitus Uterine cancer Home Medications levothyroxine 100 mcg tablet (Levoxyl) 100 mcg PO DAILY thyroid 09/18/13 [History Last Taken 06/17/22] hydralazine 50 mg tablet 50 mg PO TID blood pressure 03/22/22 [History Last Taken 06/17/22] acetaminophen 650 mg tablet,extended release (Tylenol 8 Hour) 1,300 mg PO Q12H QHS 03/24/22 [History Last Taken 06/17/22] diphenhydramine HCl 25 mg capsule (Benadryl) 25 mg PO QHS PRN Allergy Symptoms 03/24/22 [History Last Taken 06/17/22] sqminpkr-skgjmyg-fdvx-lutein tablet 1 tab PO DAILY vitamin 03/24/22 [History Last Taken 06/17/22] amlodipine 10 mg tablet 10 mg PO DAILY BP 04/01/22 [History Last Taken 06/17/22] apixaban 2.5 mg tablet (Eliquis) 2.5 mg PO BID #60 tabs 04/01/22 [Rx Last Taken 06/17/22] ascorbic acid (vitamin C) 1,000 mg capsule 1 g PO BID 04/21/22 [History Last Taken 06/17/22] calcium citrate 1,000 mg tablet 1,000 mg PO BID 04/21/22 [History Last Taken 06/17/22] cholecalciferol (vitamin D3) 50 mcg (2,000 unit) capsule 50 mcg PO BID 04/21/22 [History Last Taken 06/17/22] furosemide 40 mg tablet 40 mg PO DAILY #180 tabs 04/22/22 [Rx Last Taken 06/17/22] insulin glargine 100 unit/mL (3 mL) subcutaneous pen (Lantus Solostar U-100 Insulin) 44 unit subcut DAILY diabetes 06/17/22 [History Last Taken 06/14/22] lisinopril 20 mg tablet 20 mg PO QHS 06/17/22 [History Last Taken 06/16/22] Allergy/AdvReac Type Severity Reaction Status Date / Time adhesive tape Allergy Other Verified 04/21/22 15:00 duloxetine Allergy PT UNSURE Verified 04/21/22 15:00 OF REACTION erythromycin base Allergy Rash Verified 04/21/22 15:00 gabapentin Allergy Swelling Verified 04/21/22 15:00 pioglitazone [From Actos] Allergy PT UNSURE Verified 04/21/22 15:00 OF REACTION codeine AdvReac headache Verified 04/21/22 15:00 Family History Father Diabetes Myocardial infarction, Onset Age: 45 Hypertension Aunt Breast cancer Arthritis Brother Myocardial infarction, Onset Age: 50 Mother CVA (cerebral vascular accident) Hypertension Daughter Thyroid disorder Surgical History H/O: hysterectomy History of lobectomy of lung History of total hip arthroplasty Hx of appendectomy Hx of tubal ligation S/P debridement Social History household members: children current occupational status: retired current occupation: nurse Smoking Status: Former smoker quit date: 08/15/1959 Electronic Cigarette Use: not used alcohol intake: current alcohol intake frequency: holidays/special occasions only substance use type: does not use what type of physical activity do you participate in: none do you feel safe at home: Yes ROS ROS Narrative 10 systems were reviewed with pertinent positives as noted in the HPI above. Lab / Micro Data Result Diagrams: 06/21/22 07:27 06/21/22 07:27 Labs: Laboratory Results - last 24 hr 06/19/22 05:45: Diff Path Review Reviewed 06/20/22 05:40: Diff Path Review Reviewed 06/20/22 16:38: POC Glucose 122 H 06/20/22 22:27: POC Glucose 149 H 06/21/22 06:24: POC Glucose 91 06/21/22 07:27: WBC 3.4 L, RBC 2.92 L, Hgb 8.7 L, Hct 26.4 L, MCV 90.4, MCH 29.8, MCHC 33.0, RDW Std Deviation 62.7 H, RDW Coeff of Nael 18.9 H, Plt Count 142 L, MPV 12.1 H, Immature Gran % (Auto) 1.200 H, Neut % (Auto) 67.2, Lymph % (Auto) 13.7 L, [place] % (Auto) 11.6 H, Eos % (Auto) 5.1 H, Baso % (Auto) 1.2 H, Absolute Neuts (auto) 2.3, Absolute Lymphs (auto) 0.46 L, Nucleated RBC % 0, Diff Path Review Reviewed, Hypochromasia 1+, Anisocytosis 2+ 06/21/22 07:27: Sodium 143, Potassium 3.6, Chloride 111 H, Carbon Dioxide 25.0, Anion Gap 7, BUN 54 H, Creatinine 2.03 H, Estim Creat Clear Calc 16.41, Est GFR (MDRD) Af Amer 30 L, Est GFR (MDRD) Non-Af 25 L, BUN/Creatinine Ratio 26.6 H, Glucose 97, Calcium 8.3 L 06/21/22 11:23: POC Glucose 113 H Rhythm Strip Rhythm Strip: A-fib Charges/Coding Visit Charges Inpatient E&M: 94882 Init Hosp L2
[2022-06-21 13:22] LABS: Vancomycin, Random Level 16.9 ug/mL (0.0-15.0)
[2022-06-21 13:45] LABS: Bedside Glucose 117 mg/dL (74-106)
--- NOTE | 2022-06-21 13:46 | PCM.RX.CS ---
Consult Pharmacy has been consulted to manage selected antiobiotic: Vancomycin Type of Consult: Follow-up Suspected Infection: Other Labs: Sodium 143 mmol/L (136-145) 06/21/22 07:27 Potassium 3.6 mmol/L (3.5-5.1) 06/21/22 07:27 Chloride 111 mmol/L (98-107) H 06/21/22 07:27 Carbon Dioxide 25.0 mmol/L (21.0-32.0) 06/21/22 07:27 Anion Gap 7 (5-15) 06/21/22 07:27 BUN 54 mg/dL (7-18) H 06/21/22 07:27 Creatinine 2.03 mg/dL (0.55-1.02) H 06/21/22 07:27 Est GFR (MDRD) Af Amer 30 mL/min (>60) L 06/21/22 07:27 Est GFR (MDRD) Non-Af 25 mL/min (>60) L 06/21/22 07:27 BUN/Creatinine Ratio 26.6 RATIO (10-20) H 06/21/22 07:27 Glucose 97 mg/dL (74-106) 06/21/22 07:27 Vancomycin Trough 17.3 ug/mL (5.0-15.0) H 06/20/22 09:15 Random Vancomycin 16.9 ug/mL (0.0-15.0) H 06/21/22 12:12 Microbiology: Microbiology 06/18/22 07:45 Blood Culture (Wb) - Right Hand Blood Culture - Preliminary No growth in 48 hours. 06/18/22 07:30 Blood Culture (Wb) - Anticubital Right Blood Culture - Preliminary No growth in 48 hours. 06/19/22 10:20 Stool Stool Occult Blood (SUNSHINE) - Final Occult Blood Positive 06/18/22 08:00 Urine, Clean Catch Legionella Antigen - Final 06/18/22 08:00 Urine, Clean Catch Streptococcus pneumoniae Antigen (M - Final 06/17/22 17:00 Mucosa - Nose Respiratory Panel (PCR) - Final Rhinovirus 06/17/22 14:57 Nasal Secretion SARS-CoV-2 & FLU Antigen (Rapid) - Final Goal Trough: 15-20 mcg/mL Pharmacy Plan for Drug Dosing: VANCOMYCIN LEVEL RECEIVED Current Vancomycin Dose: pt is currently renally dosed Number of Doses Received: Vancomycin Level: 16.9 Hours Since Last Dose: 23.5 Renal Function: SrCr 2.03 Renal Function Trend: SrCr improving (was 2.24) Lab/Micro: Vancomycin Plan/Comments: based on pts random level and weight, recommend a x1 dose of 1250mg. Further dosing based on results of random level 06/22/22 Pending Level: 06/22/22 at 1200 (random level) Pharmacy Service will continue to monitor and adjust dosing as required. Follow-Up Labs: Trough Vancomycin - 06/22/22 at 1200 (random level)
--- NOTE | 2022-06-21 14:44 | PN.HOSP_ITS ---
Subjective Subjective Patient seen and examined. She has no active complaints and had an uneventful night. Review of symptoms otherwise negative. She is for EGD today. Objective Data Objective Data Vital Signs: Vital Signs Temp Pulse Resp BP Pulse Ox O2 Del Method O2 Flow Rate 97.6 F L 69 16 173/49 H 99 Room Air 2 06/21/22 13:23 06/21/22 13:30 06/21/22 13:23 06/21/22 13:30 06/21/22 13:23 06/21/22 13:23 06/19/22 14:30 FiO2 30 06/18/22 02:35 Oxygen Flow Rate (L/min) 2 Oxygen Delivery Method Room Air Weight: 192 lb 0.362 oz Body Mass Index (BMI) 37.5 Intake & Output: Intake and Output for Last 24 Hours 06/20/22 06/20/22 06/21/22 00:59 23:59 23:59 Intake Total 790 / 790 Output Total 350 / 350 Balance 440 / 440 Lab / Micro Data Result Diagrams: 06/21/22 07:27 06/21/22 07:27 Labs: Laboratory Results - last 24 hr 06/19/22 05:45: Diff Path Review Reviewed 06/20/22 05:40: Diff Path Review Reviewed 06/20/22 16:38: POC Glucose 122 H 06/20/22 22:27: POC Glucose 149 H 06/21/22 06:24: POC Glucose 91 06/21/22 07:27: WBC 3.4 L, RBC 2.92 L, Hgb 8.7 L, Hct 26.4 L, MCV 90.4, MCH 29.8, MCHC 33.0, RDW Std Deviation 62.7 H, RDW Coeff of Nael 18.9 H, Plt Count 142 L, MPV 12.1 H, Immature Gran % (Auto) 1.200 H, Neut % (Auto) 67.2, Lymph % (Auto) 13.7 L, [place] % (Auto) 11.6 H, Eos % (Auto) 5.1 H, Baso % (Auto) 1.2 H, Absolute Neuts (auto) 2.3, Absolute Lymphs (auto) 0.46 L, Nucleated RBC % 0, Diff Path Review Reviewed, Hypochromasia 1+, Anisocytosis 2+ 06/21/22 07:27: Sodium 143, Potassium 3.6, Chloride 111 H, Carbon Dioxide 25.0, Anion Gap 7, BUN 54 H, Creatinine 2.03 H, Estim Creat Clear Calc 16.41, Est GFR (MDRD) Af Amer 30 L, Est GFR (MDRD) Non-Af 25 L, BUN/Creatinine Ratio 26.6 H, Glucose 97, Calcium 8.3 L 06/21/22 11:23: POC Glucose 113 H 06/21/22 12:12: Random Vancomycin 16.9 H 06/21/22 13:27: POC Glucose 117 H Micro: Microbiology 06/18/22 07:45 Blood Culture (Wb) - Right Hand Blood Culture - Preliminary No growth in 48 hours. 06/18/22 07:30 Blood Culture (Wb) - Anticubital Right Blood Culture - Preliminary No growth in 48 hours. 06/19/22 10:20 Stool Stool Occult Blood (SUNSHINE) - Final Occult Blood Positive 06/18/22 08:00 Urine, Clean Catch Legionella Antigen - Final 06/18/22 08:00 Urine, Clean Catch Streptococcus pneumoniae Antigen (M - Final 06/17/22 17:00 Mucosa - Nose Respiratory Panel (PCR) - Final Rhinovirus 06/17/22 14:57 Nasal Secretion SARS-CoV-2 & FLU Antigen (Rapid) - Final Rhythm Strip Rhythm Strip: A-fib Physical Exam Const alert, oriented x3 and no apparent distress HEENT head/scalp atraumatic, moist oral mucous membranes and oropharynx normal Head and Scalp: normocephalic Mouth: oral and palatal mucosa normal Eyes PERRL, EOMs intact bilaterally and conjunctivae normal Neck no lymphadenopathy and supple Resp normal respiratory effort, no retractions, no use of accessory muscles and clear to auscultation bilaterally Cardio regular rate, regular rhythm, S1 normal heart sound, S2 normal heart sound and no murmurs GI normal to inspection, nondistended, normoactive bowel sounds, soft to palpation, non-tender and non-distended Extremity normal to inspection, full ROM and no clubbing, cyanosis or edema Neuro oriented x3, CN's II-XII intact bilaterally, moves all extremities and no focal motor deficits Sensorium / Orientation: awake and alert Motor Exam: strength 5/5 throughout Psych affect normal Assessment & Plan Assessment/Plan (1) Paroxysmal atrial fibrillation: (2) Acute respiratory failure with hypoxia: PLAN: Plan #Acute hypoxic respiratory failure * resolved. Now on room air. * thought to be due to acute on chronic HFpEF and community acquired pneumonia and rhinovirus infection. * has known EF of 60-65%. * on PO lasix 40mg daily * breathing treatment with bronchodilators * titrate oxygen to maintain sats >90% * on IV vancomycin and zosyn * * #NSTEMI * Heparin drip discontinued. On aspirin and statin. Aspirin held on account of anemia. * Patient refusing cardiac cath as she says she is part of the 1% of people who reacts to a whole lot of things. She states she has had reactions and complications in previous times when she has had any procedures or surgeries. She would therefore prefer medical management cardiac cath. * Cardiology on board. * * #Acute on chronic anemia * hb today is 8.7 * stool for occult blood positive * now off heparin drip * GI consulted; awaiting EGD * on IV PPI * #Lactic acidosis: resolved #Paroxysmal afib * Eliquis on hold * currently rate controlled * #Hypertension: continue current meds-amlodipine and hydralazine as well as lisinopril #Type 2 diabetes mellitus * oral hypoglycemics on hold * on lantus 44 units daily. ISS * Accuchecks ACHS * #HYpothyroidism: on synthroid #CKD stage IV: at baseline. #DVT prophylaxis: SCDs. heparin drip discontinued. SCDs as stool occult blood is positive. Charges/Coding Visit Charges Inpatient E&M: 24279 Subs Hosp L2
--- NOTE | 2022-06-21 14:45 | NURSING ---
Spoke with Sascha in pharmacy, explained patient was going down for upper scope and had Zosyn infusing so Vanc will not be given on time. Asked if vanc trough need to be retimed since timing will be off? Per Sascha, it is just a x1 dose because patient is renally dosed so it is fine to give 1400 dose once patient is back from procedure.
--- NOTE | 2022-06-21 16:33 | OP.EGD_ITS ---
Patient Name: Alexia Patterson Procedure Date: 06/21/2022 4:13 PM Date of : 1945 Age: 76 Procedure: Upper GI endoscopy Indications: Acute post hemorrhagic anemia, Melena Providers: Frandy Herndon DO Medicines: Monitored Anesthesia Care Patient Profile: This is a 76 year old female. Refer to note in patient chart for documentation of history and physical. Patient has symptoms of acute abdominal cramping and acute epigastric abdominal pain. Complications: No immediate complications. Procedure: Pre-Anesthesia Assessment: - Prior to the procedure, a History and Physical was performed, and patient medications and allergies were reviewed. The patient is competent. The risks and benefits of the procedure and the sedation options and risks were discussed with the patient. All questions were answered and informed consent was obtained. Patient identification and proposed procedure were verified by the physician in the pre-procedure area. Mental Status Examination: alert and oriented. Airway Examination: normal oropharyngeal airway and neck mobility. Respiratory Examination: clear to auscultation. CV Examination: normal. Prophylactic Antibiotics: The patient does not require prophylactic antibiotics. Prior Anticoagulants: The patient has taken no previous anticoagulant or antiplatelet agents. ASA Grade Assessment: II - A patient with mild systemic disease. After reviewing the risks and benefits, the patient was deemed in satisfactory condition to undergo the procedure. The anesthesia plan was to use moderate sedation / analgesia (conscious sedation). Immediately prior to administration of medications, the patient was re-assessed for adequacy to receive sedatives. The heart rate, respiratory rate, oxygen saturations, blood pressure, adequacy of pulmonary ventilation, and response to care were monitored throughout the procedure. The physical status of the patient was re-assessed after the procedure. After obtaining informed consent, the endoscope was passed under direct vision. Throughout the procedure, the patient's blood pressure, pulse, and oxygen saturations were monitored continuously. The gastroscope was introduced through the mouth, and advanced to the second part of duodenum. The upper GI endoscopy was accomplished without difficulty. The patient tolerated the procedure well. Scope In: 4:18:10 PM Scope Out: 4:23:07 PM Total Procedure Duration Time 0 hours 4 minutes 57 seconds Findings: The examined esophagus was normal. A medium-sized hiatal hernia was present. Two oozing cratered duodenal ulcers with pigmented material were found in the duodenal bulb. The largest lesion was 6 mm in largest dimension. Biopsies were taken with a cold forceps for histology. Verification of patient identification for the specimen was done. Estimated blood loss was minimal. Coagulation for hemostasis using heater probe was successful. Impression: - Normal esophagus. - Medium-sized hiatal hernia. - Multiple non-bleeding duodenal ulcers with no stigmata of bleeding. Biopsied. Recommendation: - [facility]. - Advance diet as tolerated. - Continue present medications. - Await pathology results. - Repeat upper endoscopy in 4 months for surveillance. - Use Protonix (pantoprazole) 40 mg PO BID for 8 weeks. - Use sucralfate tablets 1 gram PO QID for 4 weeks. Procedure Code(s): --- Professional --- 91620, 59, Esophagogastroduodenoscopy, flexible, transoral; with control of bleeding, any method 19077, 51, Esophagogastroduodenoscopy, flexible, transoral; with biopsy, single or multiple CPT copyright 2017 [employer]. All rights reserved. The codes documented in this report are preliminary and upon hcc coders review may be revised to meet current compliance requirements. Frandy Herndon DO 06/21/2022 4:33:16 PM This report has been signed electronically. Number of Addenda: 0 Note Initiated On: 06/21/2022 4:13 PM
--- NOTE | 2022-06-21 16:33 | OP.CCLET_ITS ---
06/21/2022 Althea Coker Md Re : Upper GI endoscopy procedure for Alexia Patterson Dear John Paul This procedure was performed on Tuesday, June 21, 2022. My impressions and recommendations are as follows: Impressions : - Normal esophagus. - Medium-sized hiatal hernia. - Multiple non-bleeding duodenal ulcers with no stigmata of bleeding. Biopsied. Recommendations : - [facility]. - Advance diet as tolerated. - Continue present medications. - Await pathology results. - Repeat upper endoscopy in 4 months for surveillance. - Use Protonix (pantoprazole) 40 mg PO BID for 8 weeks. - Use sucralfate tablets 1 gram PO QID for 4 weeks. My findings are described in the full procedure note, which is enclosed. If I can be of further assistance, please feel free to contact me at . Sincerely, Frandy Herndon, 06/21/2022 4:33:16 PM This report has been signed electronically.
[2022-06-21 18:35] LABS: Bedside Glucose 133 mg/dL (74-106)
--- NOTE | 2022-06-21 19:40 | NURSING ---
Charting reviewed with Mili Jacobsen RN
[2022-06-21] MEDS: Insulin Lispro 100 UNIT/ML INSULN.PEN SC (21:38)
[2022-06-21] MEDS: Lisinopril 20 MG Tablet PO (21:38)
[2022-06-21] MEDS: Atorvastatin Calcium 10 MG Tablet PO (21:38)
[2022-06-21 22:06] LABS: Bedside Glucose 240 mg/dL (74-106)
[2022-06-22] VITALS (12 sets, daily range): BP systolic 151–175; BP diastolic 43–45; PULSE 43–77; RESP 16–18; TEMP 36.3–36.6; O2SAT 96–99
[2022-06-22] MEDS: Levothyroxine 100 MCG Tablet PO (05:38)
[2022-06-22] MEDS: hydrALAZINE 50 MG Tablet PO ×2 (05:38→13:08)
[2022-06-22] MEDS: Acetaminophen 325 MG Tablet 650 MG PO ×2 (05:38→13:09)
[2022-06-22 07:00] LABS: Bedside Glucose 146 mg/dL (74-106)
--- NOTE | 2022-06-22 07:00 | PCM.PROGNOTE ---
Subjective Subjective Patient underwent an EGD yesterday after having some melanotic stools and worsening anemia in the hospital. She was discovered to have acute on chronic GI bleed secondary to duodenal ulcer that was treated endoscopically. Objective Data Objective Data Vital Signs: Vital Signs Temp Pulse Resp BP Pulse Ox O2 Del Method O2 Flow Rate 97.8 F 56 L 16 162/43 H 98 Room Air 2 06/22/22 13:11 06/22/22 13:11 06/22/22 13:11 06/22/22 13:11 06/22/22 13:11 06/22/22 13:11 06/19/22 14:30 FiO2 30 06/18/22 02:35 Oxygen Flow Rate (L/min) 2 Oxygen Delivery Method Room Air Weight: 188 lb 11.451 oz Body Mass Index (BMI) 37.5 Intake & Output: Intake and Output for Last 24 Hours 06/20/22 06/21/22 06/22/22 23:59 23:59 23:59 Intake Total 2115 / 2115 760 / 760 Output Total 1100 / 1100 450 / 450 Balance 1015 / 1015 310 / 310 Lab / Micro Data Result Diagrams: 06/22/22 10:18 06/22/22 10:18 Labs: Laboratory Results - last 24 hr 06/21/22 17:51: POC Glucose 133 H 06/21/22 21:35: POC Glucose 240 H 06/22/22 06:29: POC Glucose 146 H 06/22/22 10:18: Random Vancomycin 24.4 H 06/22/22 10:18: WBC 3.4 L, RBC 2.94 L, Hgb 8.6 L, Hct 26.7 L, MCV 90.8, MCH 29.3, MCHC 32.2, RDW Std Deviation 62.9 H, RDW Coeff of Nael 19.0 H, Plt Count 129 L, MPV 10.2, Immature Gran % (Auto) 0.900, Neut % (Auto) 69.1, Lymph % (Auto) 10.5 L, [place] % (Auto) 12.2 H, Eos % (Auto) 5.8 H, Baso % (Auto) 1.5 H, Absolute Neuts (auto) 2.4, Absolute Lymphs (auto) 0.36 L, Nucleated RBC % 0, Differential Comment SCANNED, Diff Path Review Reviewed 06/22/22 10:18: Sodium 141, Potassium 3.8, Chloride 108 H, Carbon Dioxide 26.0, Anion Gap 7, BUN 43 H, Creatinine 2.06 H, Estim Creat Clear Calc 16.17, Est GFR (MDRD) Af Amer 30 L, Est GFR (MDRD) Non-Af 25 L, BUN/Creatinine Ratio 20.9 H, Glucose 245 H, Calcium 8.0 L 06/22/22 12:39: POC Glucose 206 H Micro: Microbiology 06/18/22 07:45 Blood Culture (Wb) - Right Hand Blood Culture - Preliminary No growth in 48 hours. 06/18/22 07:30 Blood Culture (Wb) - Anticubital Right Blood Culture - Preliminary No growth in 48 hours. 06/19/22 10:20 Stool Stool Occult Blood (SUNSHINE) - Final Occult Blood Positive 06/18/22 08:00 Urine, Clean Catch Legionella Antigen - Final 06/18/22 08:00 Urine, Clean Catch Streptococcus pneumoniae Antigen (M - Final 06/17/22 17:00 Mucosa - Nose Respiratory Panel (PCR) - Final Rhinovirus 06/17/22 14:57 Nasal Secretion SARS-CoV-2 & FLU Antigen (Rapid) - Final Rhythm Strip Rhythm Strip: A-fib Physical Exam Const alert, oriented x3 and no apparent distress General Appearance: cooperative, comfortable and well kempt Orientation / Consciousness: awake Exam Limitations: no limitations HEENT normocephalic, head/scalp atraumatic, hearing grossly normal bilaterally, moist oral mucous membranes and oropharynx normal Mouth: oral and palatal mucosa normal Eyes PERRL, EOMs intact bilaterally and conjunctivae normal Neck no lymphadenopathy and supple Resp normal respiratory effort, no retractions, no use of accessory muscles and clear to auscultation bilaterally Cardio regular rate, regular rhythm, S1 normal heart sound, S2 normal heart sound and no murmurs GI normal to inspection, nondistended, normoactive bowel sounds, soft to palpation, non-tender and non-distended Extremity normal to inspection, full ROM and no clubbing, cyanosis or edema Skin no rashes or lesions noted Neuro oriented x3, CN's II-XII intact bilaterally, moves all extremities and no focal motor deficits Sensorium / Orientation: awake and alert Motor Exam: strength 5/5 throughout Psych affect normal Assessment & Plan Assessment/Plan (1) Anemia: PLAN: Acute on chronic anemia secondary to anemia chronic disease, chronic kidney disease, CHF in the setting of acute GI bleed secondary to NSAIDs. Her hemoglobin seems to be stable. (2) GI bleed: PLAN: Duodenal ulcer was endoscopically treated. Biopsies were taken. Will be tested for age pylori and any signs of intestinal metaplasia, dysplasia or malignancy. She will need to be on antisecretory therapy with Carafate 1 g p.o. 4 times daily, PPI 40 mg p.o. twice daily. They are going to start her back on anticoagulation along with dual antiplatelet therapy. She is high risk for rebleeding.
[2022-06-22] MEDS: Furosemide 40 MG Tablet PO (08:35)
[2022-06-22] MEDS: amLODIPine 10 MG Tablet PO (08:35)
[2022-06-22 10:29] LABS: Absolute Lymphocyte Count 0.36 X10^3/uL (0.83-4.51); Absolute Neutrophil Count 2.4 X10^3/uL (2.0-7.7); Basophil# 0.05 X10^3/uL; Basophil% 1.5 % (0-1); Eosinophils% 5.8 % (0-5); Hematocrit 26.7 % (37-47); Hemoglobin 8.6 g/dL (12.0-15.0); Lymphocyte # 0.36 X10^3/ul (0.83-4.51); Lymphocyte % 10.5 % (19-41); Mean Corp Hgb Conc 32.2 g/dL (32-36); Mean Corpuscular Hgb 29.3 pg (27.0-32.0); Mean Corpuscular Volume 90.8 fL (81-99); Mean Platelet Vol. 10.2 fl (6.2-12.0); Monocyte# 0.42 X10^3/uL; Monocyte% 12.2 % (0-10); NRBC Flagged by Analyzer 0 % (0-5); Neutrophil # 2.38 X10^3/uL (2.7-7.7); Neutrophil % 69.1 % (47-70); POSITIVE DIFFERENTIAL YES; Platelet Count 129 K/mm3 (150-450); RBC Distribution Width SD 62.9 fl (35.1-43.9); Red Blood Count 2.94 M/mm3 (4.2-5.4); White Blood Count 3.4 K/mm3 (4.4-11.0)
[2022-06-22 10:52] LABS: Differential Indicated SCAN CRITERIA MET
[2022-06-22 11:03] LABS: Differential Comment SCANNED
[2022-06-22 11:07] LABS: Anion Gap 7 (5-15); BUN 43 mg/dL (7-18); BUN/Creat Ratio 20.9 RATIO (10-20); Chloride 108 mmol/L (98-107); Creatinine, Serum 2.06 mg/dL (0.55-1.02); EST Glomerular Filtration Rate 25 mL/min (>60); Est Glom Filt Rate - Afr Amer 30 mL/min (>60); Estimated Creatinine Clearance 16.17 ml/min; Glucose 245 mg/dL (74-106); Potassium 3.8 mmol/L (3.5-5.1); Sodium Level 141 mmol/L (136-145)
--- NOTE | 2022-06-22 11:27 | CASEMGMT ---
Pt already set up with [facility] for discharge and Maia at [facility] aware that pt to discharge today. Pt voices no further questions/concerns/needs for discharge. Temo HATFIELD CM
--- NOTE | 2022-06-22 11:33 | DCINST_ITS ---
Discharge Instructions Diet Discharge Diet: Low fat / Low cholesterol Activity Discharge Activity: Return to Normal Activity Weight Bearing Status: Weight bearing as tolerated Dressing / Incision Call your doctor if you observe: Shortness of breath, Dizziness, Swelling in the ankles, Chest pain and Increased palpitations (irregular heartbeat) Follow Up Care Test Results: Test results from this visit will be discussed in further detail at your follow- up appointment, if applicable. Discharge Plan Admission Admit Date/Time: 06/17/22 16:15 Primary Reason for Your Visit: nonstemi Attending Provider: Laurie Desir Primary Care Provider: Althea Coker Consulting Providers: Margarita Jones ; Ignacio Layne ; Amie Colon ; Raul Laura Instructions Patient Instructions: Heart Attack Dc, Exercising After a Heart Attack, ED PUD Discharge Orders/Prescriptions Prescriptions: New pantoprazole 40 mg tablet,delayed release (DR/EC) 40 mg PO BID Qty: 60 2RF sucralfate 1 gram tablet 1 g PO Q6H Qty: 90 0RF atorvastatin 40 mg tablet 40 mg PO QHS Qty: 30 1RF Continued rsqakzdr-yvgjilf-bomg-lutein Tablet 1 tab PO DAILY acetaminophen [Tylenol 8 Hour] 650 mg tablet extended release 1,300 mg PO Q12H diphenhydramine HCl [Benadryl] 25 mg capsule 25 mg PO QHS PRN (Reason: Allergy Symptoms) calcium citrate 1,000 mg tablet 1,000 mg PO BID ascorbic acid (vitamin C) 1,000 mg capsule 1 g PO BID cholecalciferol (vitamin D3) 50 mcg (2,000 unit) capsule 50 mcg PO BID levothyroxine [Levoxyl] 100 MCG tablet 100 mcg PO DAILY Label Comments: THYROID amlodipine 10 mg tablet 10 mg PO DAILY lisinopril 20 mg tablet 20 mg PO QHS insulin glargine [Lantus Solostar U-100 Insulin] 100 unit/mL (3 mL) insulin pen 44 unit subcut DAILY hydralazine 50 mg tablet 50 mg PO TID Eliquis 2.5 mg tablet 2.5 mg PO BID Qty: 60 11RF furosemide 40 mg tablet 40 mg PO DAILY Qty: 180 3RF Hold Instructions: Resume on 04/03/22. until instructed to restart Referrals / Follow Up: Althea Coker MD [Primary Care Provider] - Within 2 Weeks Roberto Palomino MD [Med Staff - Active Staff] - Within 2 Weeks Disposition Disposition (needs filled in before D/C Order can be placed): Home, Self Care
--- NOTE | 2022-06-22 11:36 | DS.PCM_ITS ---
Providers Date of Admission: 06/17/22 Date of Discharge: 06/22/22 Primary Care Physician: Dr. Althea Coker MD Consultations 06/17/22 17:03 Consult: Cardiology Routine Consulting Provider: Amie Colon Reason for Consult: Resp failure, CHF exac/Pulm edema, NSTEMI EMERGENT Consult: No MD Notified: Yes Date Notified: 06/17/22 Time Notified: 16:16 Method of Notification: called Consult: Process Expert / Pulmonary Medicine Routine Consulting Provider: Raul Laura Reason for Consult: Resp failure, CHF exac/Pulm edema, NSTEMI EMERGENT Consult: No Notified: Yes Date Notified: 06/17/22 Time Notified: 16:17 Method of Notification: Text 06/20/22 09:02 Consult: Gastroenterology Routine Consulting Provider: [facility] Reason for Consult: anemia, positive occult stool EMERGENT Consult: No Notified: Yes Date Notified: 06/20/22 Time Notified: 09:02 Method of Notification: Text Reason For Visit: RESPIRATORY FAILURE, CHF EXAC/PULM EDEMA, NSTEMI, Diagnosis Discharge Diagnosis (1) Paroxysmal atrial fibrillation: Status: Acute Code(s): I48.0 - Paroxysmal atrial fibrillation (2) Acute respiratory failure with hypoxia: Status: Acute Code(s): J96.01 - Acute respiratory failure with hypoxia Plan #Acute hypoxic respiratory failure * resolved. Now on room air. * thought to be due to acute on chronic HFpEF and community acquired pneumonia and rhinovirus infection. * has known EF of 60-65%. * on PO lasix 40mg daily * breathing treatment with bronchodilators * titrate oxygen to maintain sats >90% * on IV vancomycin and zosyn * * #NSTEMI * Heparin drip discontinued. On aspirin and statin. Aspirin held on account of anemia. * Patient refusing cardiac cath as she says she is part of the 1% of people who reacts to a whole lot of things. She states she has had reactions and complications in previous times when she has had any procedures or surgeries. She would therefore prefer medical management cardiac cath. * Cardiology on board. * * #Acute on chronic anemia * hb today is 8.7 * stool for occult blood positive * now off heparin drip * GI consulted; awaiting EGD * on IV PPI * #Lactic acidosis: resolved #Paroxysmal afib * Eliquis on hold * currently rate controlled * #Hypertension: continue current meds-amlodipine and hydralazine as well as lisinopril #Type 2 diabetes mellitus * oral hypoglycemics on hold * on lantus 44 units daily. ISS * Accuchecks ACHS * #HYpothyroidism: on synthroid #CKD stage IV: at baseline. #DVT prophylaxis: SCDs. heparin drip discontinued. SCDs as stool occult blood is positive. Medications at Discharge Home Medications levothyroxine 100 mcg tablet (Levoxyl) 100 mcg PO DAILY thyroid 09/18/13 hydralazine 50 mg tablet 50 mg PO TID blood pressure 03/22/22 acetaminophen 650 mg tablet,extended release (Tylenol 8 Hour) 1,300 mg PO Q12H QHS 03/24/22 diphenhydramine HCl 25 mg capsule (Benadryl) 25 mg PO QHS PRN Allergy Symptoms 03/24/22 kwuhngdo-cybcyha-dqvo-lutein tablet 1 tab PO DAILY vitamin 03/24/22 amlodipine 10 mg tablet 10 mg PO DAILY BP 04/01/22 apixaban 2.5 mg tablet (Eliquis) 2.5 mg PO BID #60 tabs 04/01/22 ascorbic acid (vitamin C) 1,000 mg capsule 1 g PO BID 04/21/22 calcium citrate 1,000 mg tablet 1,000 mg PO BID 04/21/22 cholecalciferol (vitamin D3) 50 mcg (2,000 unit) capsule 50 mcg PO BID 04/21/22 furosemide 40 mg tablet 40 mg PO DAILY #180 tabs 04/22/22 insulin glargine 100 unit/mL (3 mL) subcutaneous pen (Lantus Solostar U-100 Insulin) 44 unit subcut DAILY diabetes 06/17/22 lisinopril 20 mg tablet 20 mg PO QHS 06/17/22 atorvastatin 40 mg tablet 40 mg PO QHS #30 tabs 06/22/22 pantoprazole 40 mg tablet,delayed release 40 mg PO BID #60 tabs 06/22/22 sucralfate 1 gram tablet 1 g PO Q6H #90 tabs 06/22/22 Hospital Course Operations None Procedures 2-D Echocardiogram and EGD Summary of Care Provided Minutes Spent on Discharge: 45 Hospital Course: Patient is a 76 y/ female with a PMH as outlined who was admitted via the ED on 06/17/2022 with a complaint of upper respiratory tract symptoms including cough, shortness of breath, rhinorrhea and post nasal drip. She also noticed that her blood pressure was very elevated as well as her blood sugars sos she came in to the ED. On admission, troponin was elevated, though EKG showed no acute ST changes. She was admitted and managed for nonstemi. She was started on heparin drip. She had 2D echo which showed EF of 60-65%. Plan was for patient to have cardiac cath but she refused du to concern about the cath, as she said she had had complications from all previous procedures she had had in the past. Plan was therefore for medical management. She was also treated for pneumonia and rhinovirus infection. She was initially placed on IV vancomycin and zosyn. Hospital course was compliated by acute on chronic anemia with Hb going down to 7.5. She was started on IV PPI and stool for occult blood was positive. She was started on IV PPI. Gastroenterology was consulted and she had EGD on which showed multiple nonbleeding ulcers. Gastroenterology was ok with patient being placed aspirin and plavix. However, in lgiht of the increased bleeding risk of these whilst also on eliquis, per discussion with Dr Palomino her primary suspect artist, decision was made to place patient on only eliquis. She remained stable and was discharged on 06/22/2022. She is to follow-up with cardiology and gastroenterology as well as her primary care doctor. Cardiology will decide on whether patient needs to be placed on aspirin and Plavix. He was discharged home on high intensity statin. Patient seen and examined prior to discharge. She does complain of some low back pain which is chronic. She had no other active events overnight and review of systems otherwise negative. Labs and vitals reviewed. Home medication reviewed and reconciled. Physical Exam Const alert, oriented x3 and no apparent distress General Appearance: cooperative, comfortable and well kempt Orientation / Consciousness: awake Exam Limitations: no limitations HEENT normocephalic, head/scalp atraumatic, hearing grossly normal bilaterally, moist oral mucous membranes and oropharynx normal Mouth: oral and palatal mucosa normal Eyes PERRL, EOMs intact bilaterally and conjunctivae normal Neck no lymphadenopathy and supple Resp normal respiratory effort, no retractions, no use of accessory muscles and clear to auscultation bilaterally Cardio regular rate, regular rhythm, S1 normal heart sound, S2 normal heart sound and no murmurs GI normal to inspection, nondistended, normoactive bowel sounds, soft to palpation, non-tender and non-distended Extremity normal to inspection, full ROM and no clubbing, cyanosis or edema Skin no rashes or lesions noted Neuro oriented x3, CN's II-XII intact bilaterally, moves all extremities and no focal motor deficits Sensorium / Orientation: awake and alert Motor Exam: strength 5/5 throughout Psych affect normal Weight / BMI Weight Weight: 188 lb 11.451 oz Body Mass Index (BMI) 37.5 ABG / Lab / Microbiology Data Result Diagrams: 06/22/22 10:18 06/22/22 10:18 Laboratory: Laboratory Results - last 24 hr 06/19/22 05:45: Diff Path Review Reviewed 06/20/22 05:40: Diff Path Review Reviewed 06/21/22 07:27: Diff Path Review Reviewed 06/21/22 11:23: POC Glucose 113 H 06/21/22 12:12: Random Vancomycin 16.9 H 06/21/22 13:27: POC Glucose 117 H 06/21/22 17:51: POC Glucose 133 H 06/21/22 21:35: POC Glucose 240 H 06/22/22 06:29: POC Glucose 146 H 06/22/22 10:18: WBC 3.4 L, RBC 2.94 L, Hgb 8.6 L, Hct 26.7 L, MCV 90.8, MCH 29.3, MCHC 32.2, RDW Std Deviation 62.9 H, RDW Coeff of Nael 19.0 H, Plt Count 129 L, MPV 10.2, Immature Gran % (Auto) 0.900, Neut % (Auto) 69.1, Lymph % (Auto) 10.5 L, [place] % (Auto) 12.2 H, Eos % (Auto) 5.8 H, Baso % (Auto) 1.5 H, Absolute Neuts (auto) 2.4, Absolute Lymphs (auto) 0.36 L, Nucleated RBC % 0, Differential Comment SCANNED, Diff Path Review May foll 06/22/22 10:18: Sodium 141, Potassium 3.8, Chloride 108 H, Carbon Dioxide 26.0, Anion Gap 7, BUN 43 H, Creatinine 2.06 H, Estim Creat Clear Calc 16.17, Est GFR (MDRD) Af Amer 30 L, Est GFR (MDRD) Non-Af 25 L, BUN/Creatinine Ratio 20.9 H, Glucose 245 H, Calcium 8.0 L Microbiology: Microbiology 06/18/22 07:45 Blood Culture (Wb) - Right Hand Blood Culture - Preliminary No growth in 48 hours. 06/18/22 07:30 Blood Culture (Wb) - Anticubital Right Blood Culture - Preliminary No growth in 48 hours. 06/19/22 10:20 Stool Stool Occult Blood (SUNSHINE) - Final Occult Blood Positive 06/18/22 08:00 Urine, Clean Catch Legionella Antigen - Final 06/18/22 08:00 Urine, Clean Catch Streptococcus pneumoniae Antigen (M - Final 06/17/22 17:00 Mucosa - Nose Respiratory Panel (PCR) - Final Rhinovirus 06/17/22 14:57 Nasal Secretion SARS-CoV-2 & FLU Antigen (Rapid) - Final D/C Instructions Discharge Diet: Low fat / Low cholesterol Weight Bearing Status: Weight bearing as tolerated Call your doctor if you observe: Shortness of breath, Dizziness, Swelling in the ankles, Chest pain and Increased palpitations (irregular heartbeat) Meaningful Use Info Meaningful Use Diagnoses (Choose all that apply): AMI AMI/Post PCI/Angioplasty Aspirin given w/in 24hrs of arrival?: Yes ASA at discharge?: No Reason ASA not ordered:: Drug Interaction (increased bleeding risk whilst on eliquis) Antiplatelet Therapy at Discharge:: No Reason Antiplatelet Therapy not ordered:: increased bleeding risk; on eliquis Statins at discharge?: Yes [place]/ARB at discharge?: Yes Beta Al at discharge?: No Reason Beta Al not ordered:: Drug Interaction (bradycardia) Done w/ Acute NC measure.: Yes Documented LVEF (%): 55 Discharge Plan Admission Admit Date/Time: 06/17/22 16:15 Primary Reason for Your Visit: nonstemi Attending Provider: Laurie Desir Primary Care Provider: Althea Coker Consulting Providers: Margarita Jones ; Ignacio Layne ; Amie Colon ; Raul Laura Instructions Patient Instructions: Heart Attack Dc, Exercising After a Heart Attack, ED PUD Discharge Orders/Prescriptions Prescriptions: New pantoprazole 40 mg tablet,delayed release (DR/EC) 40 mg PO BID Qty: 60 2RF sucralfate 1 gram tablet 1 g PO Q6H Qty: 90 0RF atorvastatin 40 mg tablet 40 mg PO QHS Qty: 30 1RF Continued qvonrykk-iuszsqj-wvjj-lutein Tablet 1 tab PO DAILY acetaminophen [Tylenol 8 Hour] 650 mg tablet extended release 1,300 mg PO Q12H diphenhydramine HCl [Benadryl] 25 mg capsule 25 mg PO QHS PRN (Reason: Allergy Symptoms) calcium citrate 1,000 mg tablet 1,000 mg PO BID ascorbic acid (vitamin C) 1,000 mg capsule 1 g PO BID cholecalciferol (vitamin D3) 50 mcg (2,000 unit) capsule 50 mcg PO BID levothyroxine [Levoxyl] 100 MCG tablet 100 mcg PO DAILY Label Comments: THYROID amlodipine 10 mg tablet 10 mg PO DAILY lisinopril 20 mg tablet 20 mg PO QHS insulin glargine [Lantus Solostar U-100 Insulin] 100 unit/mL (3 mL) insulin pen 44 unit subcut DAILY hydralazine 50 mg tablet 50 mg PO TID Eliquis 2.5 mg tablet 2.5 mg PO BID Qty: 60 11RF furosemide 40 mg tablet 40 mg PO DAILY Qty: 180 3RF Hold Instructions: Resume on 04/03/22. until instructed to restart Referrals / Follow Up: Althea Coker MD [Primary Care Provider] - Within 2 Weeks Roberto Palomino MD [Med Staff - Active Staff] - Within 2 Weeks Disposition Disposition (needs filled in before D/C Order can be placed): Home, Self Care Charges/Coding Visit Charges Inpatient E&M: 60986 Disch Hosp
--- NOTE | 2022-06-22 12:02 | PHA.DC.MC ---
Pharmacy Service has performed discharge medication reconciliation and counseling for this patient. 1. ATORVASTATIN 40MG PO QHS 2. PANTOPRAZOLE 40MG PO BID 3. SUCRALFATE 1GM PO Q6 The patient's discharge medication list was reviewed for discrepancies and discrepancies were resolved. Home Medications levothyroxine 100 mcg tablet (Levoxyl) 100 mcg PO DAILY thyroid 09/18/13 hydralazine 50 mg tablet 50 mg PO TID blood pressure 03/22/22 acetaminophen 650 mg tablet,extended release (Tylenol 8 Hour) 1,300 mg PO Q12H QHS 03/24/22 diphenhydramine HCl 25 mg capsule (Benadryl) 25 mg PO QHS PRN Allergy Symptoms 03/24/22 ymeoarrr-teepjem-rbox-lutein tablet 1 tab PO DAILY vitamin 03/24/22 amlodipine 10 mg tablet 10 mg PO DAILY BP 04/01/22 apixaban 2.5 mg tablet (Eliquis) 2.5 mg PO BID #60 tabs 04/01/22 ascorbic acid (vitamin C) 1,000 mg capsule 1 g PO BID 04/21/22 calcium citrate 1,000 mg tablet 1,000 mg PO BID 04/21/22 cholecalciferol (vitamin D3) 50 mcg (2,000 unit) capsule 50 mcg PO BID 04/21/22 furosemide 40 mg tablet 40 mg PO DAILY #180 tabs 04/22/22 insulin glargine 100 unit/mL (3 mL) subcutaneous pen (Lantus Solostar U-100 Insulin) 44 unit subcut DAILY diabetes 06/17/22 lisinopril 20 mg tablet 20 mg PO QHS 06/17/22 atorvastatin 40 mg tablet 40 mg PO QHS #30 tabs 06/22/22 pantoprazole 40 mg tablet,delayed release 40 mg PO BID #60 tabs 06/22/22 sucralfate 1 gram tablet 1 g PO Q6H #90 tabs 06/22/22 The patient was counseled on the following discharge medications and changes in medications for homegoing were reviewed. The Reason for Use, instructions for use, and potential side effects were reviewed for all new medications. The patient's questions regarding all of their medications were answered. The patient was able to verbally demonstrate an understanding of their discharge medications. Patient counseled by pharmacy technician assistantRosalee.
[2022-06-22] MEDS: Insulin Lispro 100 UNIT/ML INSULN.PEN SC (12:41)
[2022-06-22] MEDS: Insulin Glargine-YFGN 100 UNIT/ML Pen 40 UNIT SC (12:42)
[2022-06-22 13:04] LABS: Vancomycin, Random Level 24.4 ug/mL (0.0-15.0)
[2022-06-22 13:43] LABS: Pathologist Review Reviewed
--- NOTE | 2022-06-22 14:03 | PCM.RX.CS ---
Consult Pharmacy has been consulted to manage selected antiobiotic: Vancomycin Type of Consult: Follow-up Labs: Sodium 141 mmol/L (136-145) 06/22/22 10:18 Potassium 3.8 mmol/L (3.5-5.1) 06/22/22 10:18 Chloride 108 mmol/L (98-107) H 06/22/22 10:18 Carbon Dioxide 26.0 mmol/L (21.0-32.0) 06/22/22 10:18 Anion Gap 7 (5-15) 06/22/22 10:18 BUN 43 mg/dL (7-18) H 06/22/22 10:18 Creatinine 2.06 mg/dL (0.55-1.02) H 06/22/22 10:18 Est GFR (MDRD) Af Amer 30 mL/min (>60) L 06/22/22 10:18 Est GFR (MDRD) Non-Af 25 mL/min (>60) L 06/22/22 10:18 BUN/Creatinine Ratio 20.9 RATIO (10-20) H 06/22/22 10:18 Glucose 245 mg/dL (74-106) H 06/22/22 10:18 Vancomycin Trough 17.3 ug/mL (5.0-15.0) H 06/20/22 09:15 Random Vancomycin 24.4 ug/mL (0.0-15.0) H 06/22/22 10:18 Microbiology: Microbiology 06/18/22 07:45 Blood Culture (Wb) - Right Hand Blood Culture - Preliminary No growth in 48 hours. 06/18/22 07:30 Blood Culture (Wb) - Anticubital Right Blood Culture - Preliminary No growth in 48 hours. 06/19/22 10:20 Stool Stool Occult Blood (SUNSHINE) - Final Occult Blood Positive 06/18/22 08:00 Urine, Clean Catch Legionella Antigen - Final 06/18/22 08:00 Urine, Clean Catch Streptococcus pneumoniae Antigen (M - Final 06/17/22 17:00 Mucosa - Nose Respiratory Panel (PCR) - Final Rhinovirus 06/17/22 14:57 Nasal Secretion SARS-CoV-2 & FLU Antigen (Rapid) - Final Goal Trough: 15-20 mcg/mL Pharmacy Plan for Drug Dosing: VANCOMYCIN LEVEL RECEIVED Current Vancomycin Dose: DOSE BASED ON LEVELS Number of Doses Received: LAST DOSE 1250MG IV X1 06/22/22 @1837 Vancomycin Level: 24.4 Hours Since Last Dose: 16.5HR Renal Function: 2.06 Renal Function Trend: STABLE Lab/Micro: Vancomycin Plan/Comments: PATIENT HAD TROUGH DRAWN WHICH RESULTED IN A LEVEL OF 24.4 (GOAL 15-20). WILL CONTINUE TO HOLD VANOCMYCIN DOSING AND RECHECK A TROUGH TOMORROW MORNING WITH [facility]. Pending Level: *RANDOM* LEVEL 06/23/22 WITH AM LABS Pharmacy Service will continue to monitor and adjust dosing as required.
[2022-06-22 14:36] LABS: Bedside Glucose 206 mg/dL (74-106)
[2022-06-22] MEDS: oxyCODONE 5 MG Tablet PO (14:48)
--- NOTE | 2022-06-22 18:36 | NURSING ---
Charting reviewed with Mili Jacobsen RN
== END 2022-06-22 18:41 | disposition home or self-care (01) | DRG 280 ==
LOC: ED 16:20 → ICU 16:57 → PCU 06-19 17:47
PROVIDERS: Internal Medicine; Internal Medicine Critical Care Medicine; Internal Medicine Gastroenterology; Admitting Provider Family Medicine; Emergency Provider Emergency Medicine; PCP Internal Medicine; Visit Provider Student in an Organized Health Care Education/Training Program
PROC: 0DJ08ZZ Inspection of Upper Intestinal Tract, Via Natural or Artificial Opening Endoscopic (ICD-10-PCS; CPT 43235; principal; 2022-06-21 15:55)
DX: I13.0 Hypertensive heart and chronic kidney disease with heart failure and stage 1 through stage 4 chronic kidney disease, or unspecified chronic kidney disease (principal); I21.4 Non-ST elevation (NSTEMI) myocardial infarction; J96.01 Acute respiratory failure with hypoxia; J18.9 Pneumonia, unspecified organism; I50.33 Acute on chronic diastolic (congestive) heart failure; E87.20 Acidosis, unspecified; I48.92 Unspecified atrial flutter; N18.4 Chronic kidney disease, stage 4 (severe); D63.1 Anemia in chronic kidney disease; I44.1 Atrioventricular block, second degree; E11.22 Type 2 diabetes mellitus with diabetic chronic kidney disease; Z79.4 Long term (current) use of insulin; E11.29 Type 2 diabetes mellitus with other diabetic kidney complication; I48.0 Paroxysmal atrial fibrillation; E78.5 Hyperlipidemia, unspecified; E03.9 Hypothyroidism, unspecified; I25.10 Atherosclerotic heart disease of native coronary artery without angina pectoris; K44.9 Diaphragmatic hernia without obstruction or gangrene; Z51.5 Encounter for palliative care; Z82.3 Family history of stroke; Z79.01 Long term (current) use of anticoagulants; Z87.891 Personal history of nicotine dependence; Z66 Do not resuscitate; Z79.2 Long term (current) use of antibiotics; Z79.82 Long term (current) use of aspirin; E66.9 Obesity, unspecified; K26.9 Duodenal ulcer, unspecified as acute or chronic, without hemorrhage or perforation; B97.89 Other viral agents as the cause of diseases classified elsewhere
CPT/HCPCS: 36415; 36600; 71045; 80048; 80053; 80061; 80202; 82274; 82803; 82962; 83605; 83735; 83880; 84100; 84145; 84443; 84484; 85025; 85610; 85730; 86850; 86900; 86901; 87040; 87428; 87449; 87633; 87635; 87641; 88305; 93005; 93306; 94002; 94003; 94640; 94762; 97110; 97162; 97166; 97530; 97535; 99251; 99285; J7040; J7050; J7120; A4216; G0463; J1940; J2405; U0003; U0005

== ENCOUNTER → 2022-07-02 | Outpatient (CLI) | payer MEDICARE, OTHER, SELFPAY ==
[2022-07-02 11:11] LABS: Absolute Lymphocyte Count 0.58 X10^3/uL (0.83-4.51); Absolute Neutrophil Count 3.2 X10^3/uL (2.0-7.7); Basophil# 0.06 X10^3/uL; Basophil% 1.4 % (0-1); Eosinophils% 2.3 % (0-5); Hematocrit 26.5 % (37-47); Hemoglobin 8.4 g/dL (12.0-15.0); Lymphocyte # 0.58 X10^3/ul (0.83-4.51); Lymphocyte % 13.1 % (19-41); Mean Corp Hgb Conc 31.7 g/dL (32-36); Mean Corpuscular Hgb 29.3 pg (27.0-32.0); Mean Corpuscular Volume 92.3 fL (81-99); Monocyte# 0.45 X10^3/uL; Monocyte% 10.2 % (0-10); NRBC Flagged by Analyzer 0 % (0-5); Neutrophil % 72.3 % (47-70); POSITIVE DIFFERENTIAL YES; Platelet Count 116 K/mm3 (150-450); RBC Distribution Width CV 19.3 % (11.6-14.6); Red Blood Count 2.87 M/mm3 (4.2-5.4); White Blood Count 4.4 K/mm3 (4.4-11.0)
[2022-07-02 11:13] LABS: Differential Indicated SCAN CRITERIA MET
[2022-07-02 11:16] LABS: BUN 63 mg/dL (7-18); BUN/Creat Ratio 23.6 RATIO (10-20); Calcium,Total 9.3 mg/dL (8.5-10.1); Chloride 107 mmol/L (98-107); Creatinine, Serum 2.67 mg/dL (0.55-1.02); EST Glomerular Filtration Rate 18 mL/min (>60); Est Glom Filt Rate - Afr Amer 22 mL/min (>60); Glucose 182 mg/dL (74-106); Phosphorus 3.9 mg/dL (2.5-4.9); Potassium 4.2 mmol/L (3.5-5.1); Sodium Level 141 mmol/L (136-145)
[2022-07-02 11:49] LABS: Anisocytosis 1+; Ovalocyte 1+; Platelet Estimate ADEQUATE (ADEQ); Poikilocytosis 1+
== END | disposition home or self-care (01) ==
LOC: LAB 09:29
PROVIDERS: PCP Internal Medicine; Visit Provider Internal Medicine Nephrology
DX: I05.9 Rheumatic mitral valve disease, unspecified (principal); K92.2 Gastrointestinal hemorrhage, unspecified
CPT/HCPCS: 36415; 80069; 85025

== ENCOUNTER → 2022-07-19 | Outpatient (CLI) | payer MEDICARE, OTHER, SELFPAY ==
[2022-07-19 15:32] LABS: Absolute Lymphocyte Count 0.39 X10^3/uL (0.83-4.51); Absolute Neutrophil Count 2.7 X10^3/uL (2.0-7.7); Basophil# 0.05 X10^3/uL; Basophil% 1.4 % (0-1); Eosinophil# 0.06 X10^3/uL; Eosinophils% 1.7 % (0-5); Hematocrit 29.5 % (37-47); Hemoglobin 9.3 g/dL (12.0-15.0); Immature Platelet Fraction 8.4 % (1.0-7.9); Lymphocyte # 0.39 X10^3/ul (0.83-4.51); Lymphocyte % 10.8 % (19-41); Mean Corp Hgb Conc 31.5 g/dL (32-36); Mean Corpuscular Hgb 28.1 pg (27.0-32.0); Mean Corpuscular Volume 89.1 fL (81-99); Monocyte# 0.42 X10^3/uL; Monocyte% 11.6 % (0-10); NRBC Flagged by Analyzer 0 % (0-5); Neutrophil # 2.67 X10^3/uL (2.7-7.7); Neutrophil % 73.9 % (47-70); POSITIVE DIFFERENTIAL YES; POSITIVE MORPHOLOGY YES; Platelet Count 111 K/mm3 (150-450); RBC Distribution Width CV 18.6 % (11.6-14.6); RBC Distribution Width SD 61.1 fl (35.1-43.9); RET-HE 30.7 pg (30-35); Red Blood Count 3.31 M/mm3 (4.2-5.4); Reticulocyte Count 1.91 % (0.5-1.5); White Blood Count 3.6 K/mm3 (4.4-11.0)
[2022-07-19 15:55] LABS: ALB/GLOB Ratio 0.7 RATIO (0.9-2.4); AST(SGOT) 22 U/L (15-37); Alanine Aminotransfer ALT/SGPT 28 U/L (13-56); Albumin, Serum 3.3 g/dL (3.2-5.0); Alkaline Phosphatase 56 U/L (45-117); Anion Gap 5 (5-15); BUN 63 mg/dL (7-18); Calcium,Total 9.2 mg/dL (8.5-10.1); Chloride 110 mmol/L (98-107); Creatinine, Serum 2.52 mg/dL (0.55-1.02); EST Glomerular Filtration Rate 20 mL/min (>60); Est Glom Filt Rate - Afr Amer 24 mL/min (>60); Ferritin 118 ng/mL (8-252); Globulin 4.6 g/dL (2.2-4.2); Glucose 147 mg/dL (74-106); Iron 55 ug/dL (50-170); Iron Binding Capacity,Total 256 ug/dL (250-450); PERCENT IRON SATURATION 21.5 % (15.0-55.0); Potassium 3.9 mmol/L (3.5-5.1); Protein, Total 7.9 g/dL (6.4-8.2); Sodium Level 142 mmol/L (136-145)
[2022-07-19 15:56] LABS: Differential Indicated SCAN CRITERIA MET
[2022-07-19 17:18] LABS: Anisocytosis RARE; Macrocytosis RARE; Platelet Estimate SLT DEC (ADEQ); Red Cell Morphology N CHROM NORMAL (NORM C&C)
[2022-07-20 08:00] LABS: PTHIN 37.7 pg/mL (18.4-80.1)
[2022-07-21 09:35] LABS: Pathologist Review Reviewed
[2022-07-21 16:09] LABS: Endomysial Antibody IgA Negative (Negative)
[2022-07-21 20:32] LABS: Immunoglobulin A 480 mg/dL (64-422); t-Transglutaminase IgA <2 U/mL (0-3)
[2022-07-21 20:33] LABS: Erythropoietin 38.8 mIU/mL (2.6-18.5); Immunoglobulin A 474 mg/dL (64-422)
[2022-07-26 15:07] LABS: Albumin 3.9 g/dL (2.9-4.4); Alpha-1-Globulins 0.4 g/dL (0.0-0.4); Alpha-2-Globulins 0.8 g/dL (0.4-1.0); Gamma Globulin 1.6 g/dL (0.4-1.8); Immunoglobulin A 476 mg/dL (64-422); Immunoglobulin G 1646 mg/dL (586-1602); Immunoglobulin M 130 mg/dL (26-217)
== END | disposition home or self-care (01) ==
PROVIDERS: PCP Internal Medicine; Visit Provider Internal Medicine Gastroenterology
DX: K27.4 Chronic or unspecified peptic ulcer, site unspecified, with hemorrhage (principal)
CPT/HCPCS: 36415; 80053; 82668; 82728; 82784; 83516; 83540; 83550; 83970; 84165; 85025; 85045; 86255; 86334

== ENCOUNTER → 2022-08-05 | Outpatient (CLI) | payer MEDICARE, OTHER, SELFPAY ==
--- NOTE | 2022-08-05 09:40 | US_ITS ---
STUDY: ABDOMINAL ULTRASOUND - ELASTOGRAPHY REASON FOR VISIT: Female, 76 years old. Abnormal liver function tests. TECHNIQUE: Liver stiffness measurements were obtained on a Keego RS 85 ultrasound machine using a CA 1-7 probe following the SRU guidelines. 3 measurements were obtained using a 2-D-SWE method. TheIQR/M was 24% suggesting a quality data set. TECHNICAL QUALITY: Adequate. COMPARISON: Comparison is made with prior examination of the remaining today. FINDINGS: Liver: There is no demonstrated mass lesion. Median liver stiffness measured 8.4 kPa. US/Elastography Parenchyma/Organ IMPRESSION: Liver stiffness measures 8.4 kPa compatible with F2-F3 (Mild to moderate liver fibrosis) Metavir score. Electronically Signed: Tae Martin MD at 14:27 EST ,
--- NOTE | 2022-08-05 09:40 | US_ITS ---
STUDY: ABDOMINAL ULTRASOUND - RIGHT UPPER QUADRANT REASON FOR VISIT: Female, 76 years old . Abnormal liver function tests. TECHNIQUE: Ultrasound evaluation of the right upper quadrant was performed with real-time and static yepez-scale imaging. TECHNICAL QUALITY: Limited. Examination limited by bowel gas. COMPARISON: None. FINDINGS: Liver: The liver measures 13.2 cm. There is normal echogenicity of the liver. The bile ducts are within normal limits. There is hepatic color flow. The direction of portal flow is hepatopetal. There is no demonstrated mass lesion. Gallbladder: Normal distended gallbladder. The gallbladder wall measures 1.4 mm. There is a negative sonographic Metz''s sign. There is no pericholecystic fluid. There are no gallstones. Sludge is seen within the gallbladder lumen. Common Bile Duct (C.B.D.): The common bile duct measures 6.3 mm. Pancreas: Normal size of the head, body and tail of the pancreas. There is increased echogenicity of the pancreas. There is no demonstrated pancreatic mass or cyst. Right Kidney: Normal size of the right kidney. The right kidney measures 9.1 cm x 5 cm x 5.8 cm. Normal renal cortex. The right cortex measures 1.2 cm. There is no demonstrated renal mass or cyst. There is no right hydronephrosis. US/Abdomen Limited IMPRESSION: Small amount of sludge is seen in the gallbladder lumen. Electronically Signed: Tae Martin MD at 14:25 EST ,
== END | disposition home or self-care (01) ==
LOC: US 09:39
PROVIDERS: PCP Internal Medicine; Visit Provider Internal Medicine Gastroenterology
DX: R79.9 Abnormal finding of blood chemistry, unspecified (principal)
CPT/HCPCS: 76705; 76981

== ENCOUNTER → 2022-09-14 | Outpatient (CLI) | payer MEDICARE, OTHER, SELFPAY ==
--- NOTE | 2022-09-13 | BMB_PTH ---
PATIENT: MIROSLAVA OSWALD LOC: CT U#:[id number] AGE/SX: 77/F ROOM: RE09/14/[address]: Dr. Diomedes Reynolds MD : 1945 BED: DIS: 09/14/2022 SPEC #: [id number] RECD: 09/14/22 10:04 STATUS: JOANNA REStacey #: [id number] VIANCA: 09/13/22 00:[address]: Diomedes Reynolds DEPT: BONE MARROW RECD BY: Ede Izquierdo ENTERED: 09/14/22 10:05 SP TYPE: BMB SENDY DR: Dr. Althea Coker MD Tissues: A - Bone marrow, NOS B - Bone marrow, NOS C - Bone marrow, NOS Procedures: Decalcification bone/plaque Bone Marrow Aspiration Bone Marrow Core Biopsy Iron Stain Bone Marrow HEADER OPERATION: Bone marrow biopsy and aspiration PRE-OP DIAGNOSIS: Pancytopenia TISSUE SUBMITTED: A - Core, B - Clot, C - Smears, and send outs (flow, cytogenetics and FISH) BONE MARROW DIAGNOSIS Bone marrow core, clot and aspirate smears: Normocellular marrow with trilineage hematopoiesis. Peripheral blood - pancytopenia. See comment. SJ:cristobal 09/17/2022 COMMENT Flow cytometry study from [facility] shows no evidence of acute leukemia. CD34/CD117 positive myeloblasts account for 3-4% of the total events. No evidence of an abnormal myeloid population. Abnormalities associated with myelodysplasia and myeloproliferative neoplasms are absent. No evidence of B-cell lymphoma or atypical T-cell population. No evidence of monocytosis. No detectable clonal plasma cell population. The complete report is viewable in patient?s EMR. Cytogenetic and FISH studies are pending. Correlation with clinical findings and appropriate follow up are necessary. Case has been reviewed in consultation with Dr. Tamayo who concurs with the above diagnosis. IDC:AM BONE MARROW STUDY Slides are reviewed. CBC DATE: 09/14/2022 WBC 3.0; RBC 3.25; HGB 9.1; HCT 29; MCV 89.2; RDW 18.8; PLTS 106,000 SEGS 56.6%; LYMPHS 22.0%; MONOS 14.5%; EOS 3.6%; BASOS 1.3% Immature granulocytes 2.0 PERIPHERAL SMEAR: Submitted. RBC: Normocytic anemia. anisopoikilocytosis 2+, acanthocytes 2+, ovalocytes 1+, hypochromasia 1+, teardrop cells 1+ WBC: Leukopenia and neutropenia. The WBC count is compatible to as reported above. PLTS: Mildly decreased. BONE MARROW ASPIRATE DIFFERENTIAL: 200 cell count. Blasts % (normal 0-2): 2 Promyelocytes % (normal 1-5): 2 Myelocytes and metamyelocytes % (normal 17-41): 25 Bands and Segs % (normal 15-32): 36 Eos % (normal 1-6): 2 Basos % (normal 0-1): 0 Monocytes % (normal 0-4): 1 Erythroid Precursors % (normal 17-35): 28 Lymphocytes % (normal 7-13): 4 Plasma Cells % (normal 0-2): 0 ASPIRATE FINDINGS: Site: Not specified Aspicular, Cellular M/E ratio: 2.4 (Normal 1.5-4.0) Megakaryocytes: Present. A few hypolobated megakaryocytes are noted. Erythropoiesis: Normoblastic. Granulopoiesis: Progressive and unremarkable. Comment: Significant dysplastic changes are not seen. CORE BIOPSY FINDINGS: Site: Not specified Adequacy: Adequate Cellularity: 50-60% M/E ratio: Within normal limits. Megakaryocytes: Present and mildly increased in number. Bony trabeculae: Unremarkable. Granulomas: Absent. Lymphoid aggregate: Absent. Atypical infiltrate: Absent. ASPIRATE CLOT FINDINGS: Site: Not specified Marrow particles: Numerous Cellularity: 50-60% M/E ratio: Within normal limits. Megakaryocytes: Present and mildly increased in number. Granulomas: Absent. Lymphoid aggregates: Absent. Atypical infiltrates: Absent. SPECIAL STAINS WITH MATCHED CONTROLS: Iron: Absent Reticulin: No significant increase of reticulin fibers is noted. PAS: Highlights myeloid cells and megakaryocytes. BONE MARROW GROSS A - Received is a container labeled with the patient's name and designated bone marrow. The specimen consists of multiple fragments of blood clot mixed with possible fragment of bone measuring in aggregate 0.5 x 0.5 x 0.1 cm. The specimen is totally submitted in one cassette after decalcification. B - Received labeled with the patient's name and designated bone marrow is a specimen that consists of approximately 7 ml of bloody fluid that on filtration yields multiple minute fragments of blood clots measuring in aggregate 3 x 2.5 x 0.3 cm. The specimen is totally submitted in one cassette. C - Also received are 16 unstained and 1 peripheral stained slides. The unstained slides are submitted for appropriate staining. Also received are two green top tubes which are sent to our reference lab for flow, cytogenetics and FISH. 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 Karyotype: 46,XX.del(5)(q13q33)[4]/48,sl,+1,+11[7]/48,XX,sl,hernan(13;1)t(13;1)(p11.2;p36.3)del(1)(p34.1p1 3), +1~3mar[8]/46,X X[1] FLUORESCENCE IN-SITU HYBRIDIZATION (FISH) FROM [facility] INTERPRETATION: 1. Deletion 5q (5q-) is present. Comment: Deletion of chromosome 5q is seen in myelodysplastic syndrome and acute myeloid leukemia. Clinicopathologic correlation suggested. 2. No evidence of monosomy 7 or deletion of 7q. 3. Trisomy 8 is present. Comment: Trisomy 8 is seen in primary myeloid disorders, including MDS, AML, and chronic myeloproliferative neoplasms. 4. No evidence of deletion of 20q12. 5. No evidence of BCR/ABL rearrangement. 6. No evidence of PML/HA gene rearrangement. 7. No evidence for RUNX1/UTBJ1Q1 rearrangement, however a subset of cells show an abnormal hybridization pattern consistent with gain of 8q or trisomy 8. 8. No evidence of CBFB [inversion(16) or translocation t(16;16)] gene rearrangement. 9. No evidence of MLL gene locus 11q23 translocation. Comment: 13.667% nuclei contain 3 green, 3 orange, and 3 fusion signals. Please see complete report in e-chart or EMR
[2022-09-14] VITALS (8 sets, daily range): BP systolic 138–182; BP diastolic 39–55; PULSE 16–81; RESP 15–18; TEMP 36.6–36.8; O2SAT 97–100; BMI 35.3
--- NOTE | 2022-09-14 08:04 | CT_ITS ---
PROCEDURE: CT GUIDED BONE marrow biopsy and aspiration''s of the posterior left iliac bone. DATE: 03/14/2023. INDICATION: Female, 77 years old. FISCHER cytopenia. PHYSICIAN: Tae Martin M.D. RADIATION DOSAGE (If Supplied By Facility): CTDIvol = ( 23 ) mGy, DLP = ( 634.17 ) mGycm. Individualized dose optimization technique were utilized. PROCEDURE: The risks, benefits, and alternatives to the procedure were explained to the patient. The specific risk of hemorrhage requiring further treatment or intervention was detailed and accepted. Follow-up instructions were discussed with the patient as well. Written informed consent was obtained. The patient was brought into the CT suite and placed in the prone position. . An appropriate entry site was identified. The overlying skin was prepped and draped in the usual sterile fashion. 1% lidocaine was administered subcutaneously for local anesthesia. Conscious sedation was performed. The patient received 2 mg of VERSED and 50 mcg of FENTANYL intravenously. The patient was independently monitored by the department nurse. Conscious sedation was started at 9:15 AM and terminated at 9:[address] guidance, a bone marrow biopsy and bone marrow aspirations of the posterior left iliac bone were performed utilizing an 11-gauge bone marrow biopsy kit. The specimens were then placed in the appropriate fluid and transported to the laboratory for analysis. Hemostasis was obtained. The patient tolerated the procedure well without immediate complications. CT/Biopsy/Inj or Needle Placement IMPRESSION: Successful CT guided bone marrow biopsy and aspiration''s of the posterior aspect of the left iliac bone, as described above. The conscious sedation protocol was followed. Electronically Signed: Tae Martin MD at 9:54 EST ,
[2022-09-14 08:13] LABS: Absolute Lymphocyte Count 0.67 X10^3/uL (0.83-4.51); Absolute Neutrophil Count 1.7 X10^3/uL (2.0-7.7); Basophil# 0.04 X10^3/uL; Basophil% 1.3 % (0-1); Eosinophil# 0.11 X10^3/uL; Eosinophils% 3.6 % (0-5); Hemoglobin 9.1 g/dL (12.0-15.0); Lymphocyte # 0.67 X10^3/ul (0.83-4.51); Mean Corp Hgb Conc 31.4 g/dL (32-36); Mean Corpuscular Volume 89.2 fL (81-99); Monocyte# 0.44 X10^3/uL; Monocyte% 14.5 % (0-10); NRBC Flagged by Analyzer 0 % (0-5); Neutrophil # 1.72 X10^3/uL (2.7-7.7); Neutrophil % 56.6 % (47-70); Platelet Count 106 K/mm3 (150-450); RBC Distribution Width CV 18.8 % (11.6-14.6); RBC Distribution Width SD 61.4 fl (35.1-43.9); Red Blood Count 3.25 M/mm3 (4.2-5.4)
[2022-09-14 08:25] LABS: Albumin, Serum 3.3 g/dL (3.2-5.0); BUN 54 mg/dL (7-18); BUN/Creat Ratio 27.3 RATIO (10-20); Calcium,Total 9.4 mg/dL (8.5-10.1); Chloride 110 mmol/L (98-107); Creatinine, Serum 1.98 mg/dL (0.55-1.02); EST Glomerular Filtration Rate 26 mL/min (>60); Est Glom Filt Rate - Afr Amer 31 mL/min (>60); Glucose 79 mg/dL (74-106); Phosphorus 4.1 mg/dL (2.5-4.9); Sodium Level 144 mmol/L (136-145)
[2022-09-14 08:58] LABS: International Normalized Ratio 1.2; Prothrombin Time (Protime)PT. 15.2 SECONDS (11.7-14.9)
[2022-09-14 08:59] LABS: Partial Thromboplast Time 33.9 Seconds (24.1-36.2)
[2022-09-14 09:07] LABS: Protein, Urine (Random) 25.6 mg/dL (<11.9); Protein:Creat Ratio 469 mg/g CRE (0-200)
[2022-09-14] MEDS: Midazolam 2 MG/2 ML Syringe IV (09:15)
[2022-09-14] MEDS: fentaNYL 100 MCG/2 ML Ampul IV (09:15)
[2022-09-14] MEDS: Lidocaine 2% (20 ml mdv) 20 ML Vial (09:20)
== END | disposition home or self-care (01) ==
PROVIDERS: PCP Internal Medicine; Referring Provider Internal Medicine Medical Oncology; Visit Provider Internal Medicine Medical Oncology
DX: D61.818 Other pancytopenia (principal); N17.9 Acute kidney failure, unspecified; E11.22 Type 2 diabetes mellitus with diabetic chronic kidney disease
CPT/HCPCS: 38222; 36415; 77012; 80069; 82570; 84156; 85025; 85610; 85730; 88305; 88311; 88313; 99156; J7050

== ENCOUNTER → 2022-10-18 | Outpatient (CLI) | payer MEDICARE, OTHER, SELFPAY ==
[2022-10-18 13:51] LABS: Albumin, Serum 3.6 g/dL (3.2-5.0); BUN 70 mg/dL (7-18); BUN/Creat Ratio 28.7 RATIO (10-20); Calcium,Total 9.4 mg/dL (8.5-10.1); Chloride 108 mmol/L (98-107); Creatinine, Serum 2.44 mg/dL (0.55-1.02); EST Glomerular Filtration Rate 20 mL/min (>60); Est Glom Filt Rate - Afr Amer 25 mL/min (>60); Glucose 94 mg/dL (74-106); Phosphorus 3.9 mg/dL (2.5-4.9); Potassium 4.2 mmol/L (3.5-5.1); Sodium Level 139 mmol/L (136-145)
== END | disposition home or self-care (01) ==
LOC: POLAB3 09:45
PROVIDERS: PCP Internal Medicine; Visit Provider Internal Medicine Nephrology
DX: E11.22 Type 2 diabetes mellitus with diabetic chronic kidney disease (principal); N18.4 Chronic kidney disease, stage 4 (severe)
CPT/HCPCS: 36415; 80069

== ENCOUNTER 2022-11-08 11:12 | Day surgery (SDC) | payer MEDICARE, OTHER, SELFPAY ==
--- NOTE | 2022-11-08 | COLBX_PTH ---
PATIENT: MIROSLAVA OSWALD LOC: EN U#:[id number] AGE/SX: 77/F ROOM: RE11/08/[address]: Dr. Frandy Herndon DO : 1945 BED: DIS: 11/08/2022 SPEC #: [id number] RECD: 11/09/22 09:46 STATUS: JOANNA REQ #: [id number] VIANCA: 11/08/22 00:[address]: Frandy Herndon DEPT: SURGICAL PATHOLOGY RECD BY: Ede Izquierdo ENTERED: 11/09/22 09:46 SP TYPE: COLON BX OTHR DR: MD Dr. Diomedes Hernandez MD Tissues: A - COLON BIOPSY B - Sigmoid colon biopsy Procedures: Surgery Specimen Level IV HEADER OPERATION: Colonoscopy with biopsy and electrohemostasis, EGD ([facility] [place]) PRE-OP DIAGNOSIS: GI bleed, duodenal ulcer TISSUE SUBMITTED: A ? Hepatic flexure polyp biopsy, B ? Sigmoid polyp biopsy MICROSCOPIC DIAGNOSIS A. Hepatic flexure polyp, biopsy: Tubular adenoma. B. Sigmoid polyp, biopsy: A fragment of colonic mucosa, no pathologic diagnosis. ABHAY:cristobal 11/10/2022 MICROSCOPIC DESCRIPTION Slides are reviewed. GROSS DESCRIPTION A - Received in fixative is one container labeled with the patient's name and designated hepatic flexure polyp biopsy. The specimen consists of one irregular fragment of light pitts soft tissue that measures 0.3 x 0.3 x 0.1 cm. The specimen is totally submitted in one cassette. B - Received in fixative is one container labeled with the patient's name and designated sigmoid polyp biopsy. The specimen consists of one irregular fragment of light pitts soft tissue that measures 0.4 x 0.2 x 0.1 cm. The specimen is totally submitted in one cassette. / ABHAY:cristobal 11/09/2022 TC:1 CPT: 30333 x2
--- NOTE | 2022-11-08 11:28 | HP.PCM_ITS ---
History and Physical Date of Admission: 11/08/22 MIROSLAVA OSWALD, is a 76 F who presents to the office today for Follow up. Miroslava established with this clinic through [facility] hospitalization. [facility] ED presentation 06.17.22 with URI symptoms. Gastroenterology consulted 06.21.22 for melanotic stools and worsening anemia of hgb 8.7 that day and positive stool occult. EGD performed 06.21.22 without signs of active bleed at that time and was discharged 06.22.22. EGD 06.21.22 noting medium hiatal hernia; multiple non-bleeding duodenal ulcers without stigmata of bleed. Pathology revealed Rupali gland hyperplasia. Protonix taper and sucralfate. Miroslava feels she is doing well since discharge. Carafate has stopped and initially she had some stomach ?queasiness? but this has passed. Since discharge there was one episode of approximately 24hrs of heartburn following consumption of pizza that spontaneously resolved after 24hrs and has not had a repeat episode. ROS Const Constitutional: Positive for fatigue, weakness, change in appetite and other (Fatigue); No body ache, chills, excessive sweating, fever(s), frequent falls, headache(s), snoring, weight change or sleep problems Eyes Eyes: No blurry vision, change in vision, eye pain or Light sensitivity ENT ENT: No abnormal hearing, ear or mastoid pain, tinnitus, nasal congestion, headache(s), neck pain or sore throat Resp Respiratory: Positive for shortness of breath (improving) sob: SOB with activity; No cough (resolved), snoring or wheezing Cardio Cardiology: Positive for other (leg swelling, improving); No chest pain at rest, chest pain with exertion, excessive sweating, shortness of breath, dyspnea on exertion, lightheadedness, orthopnea or palpitations Gastro GI: No abdominal pain, change in bowel habits, constipation, cramping, diarrhea (resolved with imodium), Vomiting blood/hematemesis, Blood in stool, Black,tarry stools or vomiting Genitourinary-Female: No difficulty urinating, burning urination, painful urination, urinary incontinence or blood in urine Musc Musculoskeletal: No abnormal gait, joint pain, back pain, limited range of motion, neck pain, numbness or tingling Skin Skin: No dry skin, redness, lesions, itchy eyes, rash or wounds Breast Breast: No change in breast shape, breast lump, breast pain, breast skin changes, breast swelling or nipple discharge Neuro Neurology: Positive for weakness; No abnormal gait, abnormal hearing, frequent falls, headache(s), numbness or tingling Psych Psychiatric: No anxiety, Positive for change in appetite, No depression and No Thoughts of harming yourself/Others Endo Endocrine: Positive for cold intolerance and fatigue; No excessive sweating, flushing, heat intolerance, increased thirst/drinking, increased hunger or weight change Aller/Imm Allergy/Immunologic: No itchy eyes, seasonal allergy symptoms, hives or wheezing Baudilio/Lymp Hematologic/Lymphatic: No easy bleeding, easy bruising or enlarged lymph nodes Exam Const General: cooperative, healthy appearing, no acute distress, well developed, not diaphoretic and not ill appearing Nutritional Appearance: well nourished Orientation: alert and oriented x3 Limitations: mental status not altered HENMT Head: normal to inspection, normocephalic and atraumatic Ears: hearing grossly normal bilaterally Face and sinus: normal facial exam Mouth: oral mucosae normal and moist mucous membranes Teeth and gingiva: dentures (maxillary) and poor dentition (mandibular) Throat: posterior oropharynx normal Eyes Conjunctivae: conjunctivae normal Sclera: sclerae normal Pupils: PERRL Chest Chest palpation & inspection: normal inspection of the chest Resp Effort & Inspection: normal respiratory effort, able to speak in complete sentences, no audible wheezes and no cough Auscultation: Bilateral: Clear to Auscultation Cardio Rate: bradycardic Rhythm: regular rhythm Heart Sounds: S1 normal, S2 normal and murmur systolic III/ GI Inspection: non-distended Auscultation: normal bowel sounds Palpation: soft, no hepatosplenomegaly and nontender Skin General: no rashes or lesions noted and dry skin Wounds: no wounds Other: Venous stasis of bilateral lower extremities Neuro General: patient alert and patient oriented x3 Cranial Nerves: PERRL Speech: speech normal Gait: gait assisted Method: walker Extrem General: normal to inspection and edema (trace) Laterality: bilateral Severity: pitting Psych Appearance: grossly normal Affect: normal affect Attitude: cooperative Quality Reporting Tobacco Screening ([facility] 138) Smoking Status: Former smoker Assessment and Plan Assessment and Plan (1) GI bleed: ?Status:?Chronic ?Qualifiers: ?GI bleed type/associated pathology:?unspecified peptic ulcer? Qualified Code(s):?K27.4 - Chronic or unspecified peptic ulcer, site unspecified, with hemorrhage ?Plan: GI bleed secondary to duodenal ulcers found on the egd. She completed a course of Carafate and she is still on PPI therapy. I suspect that her GI bleed was likely secondary to Eliquis, Vitamin C and thromocytopenia. I will recheck her CBC and Iron studies. (2) Duodenal ulcer: ?Status:?Chronic ?Plan: She will get a repeat egd with capsule endoscopy to look at the UGI tract and previous peptic ulcer disease. If the capsule endoscopy is positive or if no other etiology is seen regarding her anemia then she will need a colonoscopy. ? ? ? Orders: Orders Comprehensive Metabolic Profil Today K26.9 - Duodenal ulcer, unspecified as acute or chronic, without hemorrhage or perforation, K92.2 - Gastrointestinal hemorrhage, unspecified ? Ferritin Today K26.9 - Duodenal ulcer, unspecified as acute or chronic, without hemorrhage or perforation, K27.4 - Chronic or unspecified peptic ulcer, site unspecified, with hemorrhage ? Iron+Iron Binding Capacity Today K26.9 - Duodenal ulcer, unspecified as acute or chronic, without hemorrhage or perforation, K92.2 - Gastrointestinal hemorrhage, unspecified ? CBC W/Diff, Automated Today K26.9 - Duodenal ulcer, unspecified as acute or chronic, without hemorrhage or perforation, K27.4 - Chronic or unspecified peptic ulcer, site unspecified, with hemorrhage ? Retic Panel Count Today K26.9 - Duodenal ulcer, unspecified as acute or chronic, without hemorrhage or perforation, K92.2 - Gastrointestinal hemorrhage, unspecified ? Celiac Disease Profile Today K26.9 - Duodenal ulcer, unspecified as acute or chronic, without hemorrhage or perforation, K92.2 - Gastrointestinal hemorrhage, unspecified ? Erythropoietin Today K26.9 - Duodenal ulcer, unspecified as acute or chronic, w ithout hemorrhage or perforation, K92.2 - Gastrointestinal hemorrhage, unspecified ? Immunoglobulin A Today K26.9 - Duodenal ulcer, unspecified as acute or chronic, without hemorrhage or perforation, K92.2 - Gastrointestinal hemorrhage, unspecified ? PTHIN Today K26.9 - Duodenal ulcer, unspecified as acute or chronic, without hemorrhage or perforation, K92.2 - Gastrointestinal hemorrhage, unspecified ? EGD 09/14/22 K27.4 - Chronic or unspecified peptic ulcer, site unspecified, with hemorrhage ? I have examined the patient and the H&P has been reviewed. There are no clinical changes since date of exam.
[2022-11-08 11:39] VITALS: BP 160/35; PULSE 60; RESP 18; TEMP 37.7; O2SAT 96; BMI 35.2
[2022-11-08] MEDS: Lactated Ringers 1,000 ML 15 ML IV (11:59)
[2022-11-08 12:21] LABS: Bedside Glucose 148 mg/dL (74-106)
--- NOTE | 2022-11-08 12:49 | OP.CCLET_ITS ---
11/08/2022 Althea Coker Md Re : Upper GI endoscopy procedure for Alexia Patterson Dear John Paul This procedure was performed on Tuesday, November 08, 2022. My impressions and recommendations are as follows: Impressions : - Normal esophagus. - Small hiatal hernia. - No gross lesions in the second portion of the duodenum. - No specimens collected. Recommendations : - Discharge patient to home. - Resume previous diet. - Continue present medications. My findings are described in the full procedure note, which is enclosed. If I can be of further assistance, please feel free to contact me at . Sincerely, Frandy Herndon, 11/08/2022 12:48:46 PM This report has been signed electronically.
--- NOTE | 2022-11-08 12:49 | OP.EGD_ITS ---
Patient Name: Alexia Patterson Procedure Date: 11/08/2022 12:14 PM Date of : 1945 Age: 77 Procedure: Upper GI endoscopy Indications: Iron deficiency anemia, Functional Dyspepsia, Acute peptic ulcer with hemorrhage Providers: Frandy Herndon DO Referring MD: Frandy Herndon DO Medicines: Monitored Anesthesia Care Patient Profile: This is a 77 year old female. Refer to note in patient chart for documentation of history and physical. Patient has symptoms of acute dyspepsia. Complications: No immediate complications. Procedure: Pre-Anesthesia Assessment: - Prior to the procedure, a History and Physical was performed, and patient medications and allergies were reviewed. The risks and benefits of the procedure and the sedation options and risks were discussed with the patient. All questions were answered and informed consent was obtained. Patient identification and proposed procedure were verified by the physician in the pre-procedure area. Mental Status Examination: alert and oriented. Airway Examination: normal oropharyngeal airway and neck mobility. Respiratory Examination: clear to auscultation. CV Examination: normal. Prophylactic Antibiotics: The patient does not require prophylactic antibiotics. Prior Anticoagulants: The patient has taken no previous anticoagulant or antiplatelet agents. ASA Grade Assessment: II - A patient with mild systemic disease. After reviewing the risks and benefits, the patient was deemed in satisfactory condition to undergo the procedure. The anesthesia plan was to use monitored anesthesia care (MAC). Immediately prior to administration of medications, the patient was re-assessed for adequacy to receive sedatives. The heart rate, respiratory rate, oxygen saturations, blood pressure, adequacy of pulmonary ventilation, and response to care were monitored throughout the procedure. The physical status of the patient was re-assessed after the procedure. After obtaining informed consent, the endoscope was passed under direct vision. Throughout the procedure, the patient's blood pressure, pulse, and oxygen saturations were monitored continuously. The pediatric colonoscope was introduced through the mouth, and advanced to the second part of duodenum. The upper GI endoscopy was accomplished with ease. The patient tolerated the procedure well. Scope In: 12:28:29 PM Scope Out: 12:30:06 PM Total Procedure Duration Time 0 hours 1 minute 37 seconds Findings: The examined esophagus was normal. A small hiatal hernia was present. No other significant abnormalities were identified in a careful examination of the stomach. No gross lesions were noted in the second portion of the duodenum. Impression: - Normal esophagus. - Small hiatal hernia. - No gross lesions in the second portion of the duodenum. - No specimens collected. Recommendation: - Discharge patient to home. - Resume previous diet. - Continue present medications. Procedure Code(s): --- Professional --- 89247, Esophagogastroduodenoscopy, flexible, transoral; diagnostic, including collection of specimen(s) by brushing or washing, when performed (separate procedure) CPT copyright 2017 [employer]. All rights reserved. The codes documented in this report are preliminary and upon immunology specialist review may be revised to meet current compliance requirements. Frandy Herndon DO 11/08/2022 12:48:46 PM This report has been signed electronically. Number of Addenda: 0 Note Initiated On: 11/08/2022 12:14 PM
[2022-11-08 12:50] VITALS: BP 104/42; BP 160/35; PULSE 62; RESP 108; TEMP 36.6; O2SAT 97
--- NOTE | 2022-11-08 12:54 | OP.COLON_ITS ---
Patient Name: Alexia Patterson Procedure Date: 11/08/2022 12:30 PM Date of : 1945 Age: 77 Procedure: Colonoscopy Indications: Iron deficiency anemia Providers: Frandy Herndon DO Referring MD: Frandy Herndon DO Medicines: Monitored Anesthesia Care Patient Profile: This is a 77 year old female. Refer to note in patient chart for documentation of history and physical. Patient has symptoms of acute dyspepsia. Last Colonoscopy: date unknown. Unable to locate last colonoscopy report. Complications: No immediate complications. Procedure: Pre-Anesthesia Assessment: - Prior to the procedure, a History and Physical was performed, and patient medications and allergies were reviewed. The risks and benefits of the procedure and the sedation options and risks were discussed with the patient. All questions were answered and informed consent was obtained. Patient identification and proposed procedure were verified by the physician in the pre-procedure area. Mental Status Examination: alert and oriented. Airway Examination: normal oropharyngeal airway and neck mobility. Respiratory Examination: clear to auscultation. CV Examination: normal. Prophylactic Antibiotics: The patient does not require prophylactic antibiotics. Prior Anticoagulants: The patient has taken no previous anticoagulant or antiplatelet agents. ASA Grade Assessment: II - A patient with mild systemic disease. After reviewing the risks and benefits, the patient was deemed in satisfactory condition to undergo the procedure. The anesthesia plan was to use monitored anesthesia care (MAC). Immediately prior to administration of medications, the patient was re-assessed for adequacy to receive sedatives. The heart rate, respiratory rate, oxygen saturations, blood pressure, adequacy of pulmonary ventilation, and response to care were monitored throughout the procedure. The physical status of the patient was re-assessed after the procedure. After I obtained informed consent, the scope was passed under direct vision. Throughout the procedure, the patient's blood pressure, pulse, and oxygen saturations were monitored continuously. The pediatric colonoscope was introduced through the anus and advanced to the cecum, identified by the appendiceal orifice, ileocecal valve and palpation. The colonoscopy was performed without difficulty. The patient tolerated the procedure well. The quality of the bowel preparation was adequate. Scope In: 12:32:20 PM Scope Withdrawal Time 0 hours 6 minutes 14 seconds Scope Out: 12:43:54 PM Total Procedure Duration Time 0 hours 11 minutes 34 seconds Findings: Hemorrhoids were found on perianal exam. Retro-flexion was not performed due to rectal prolapse. A few small-mouthed diverticula were found in the recto-sigmoid colon and sigmoid colon. Two sessile polyps were found in the sigmoid colon and splenic flexure. The polyps were 1 to 2 mm in size. These polyps were removed with a cold snare. Resection and retrieval were complete. Verification of patient identification for the specimen was done. Estimated blood loss was minimal. Two medium-sized localized angiodysplastic lesions with bleeding were found in the sigmoid colon and in the transverse colon. Coagulation for hemostasis using heater probe was successful. Estimated blood loss was minimal. Impression: - Hemorrhoids found on perianal exam. - Diverticulosis in the recto-sigmoid colon and in the sigmoid colon. - Two 1 to 2 mm polyps in the sigmoid colon and at the splenic flexure, removed with a cold snare. Resected and retrieved. - Two bleeding colonic angiodysplastic lesions. Treated with a heater probe. - Rectal prolapse Recommendation: - Discharge patient to home. - Resume previous diet. - Continue present medications. - Await pathology results. - No repeat colonoscopy due to age. Procedure Code(s): --- Professional --- 04356, 59, Colonoscopy, flexible; with control of bleeding, any method 38501, Colonoscopy, flexible; with removal of tumor(s), polyp(s), or other lesion(s) by snare technique CPT copyright 2017 [employer]. All rights reserved. The codes documented in this report are preliminary and upon wrapper sorter review may be revised to meet current compliance requirements. Fradny Herndon DO 11/08/2022 12:53:49 PM This report has been signed electronically. Number of Addenda: 0 Note Initiated On: 11/08/2022 12:30 PM
--- NOTE | 2022-11-08 12:54 | OP.CCLET_ITS ---
11/08/2022 Althea Coker Md Re : Colonoscopy procedure for Alexia Patterson Dear John Paul This procedure was performed on Tuesday, November 08, 2022. My impressions and recommendations are as follows: Impressions : - Hemorrhoids found on perianal exam. - Diverticulosis in the recto-sigmoid colon and in the sigmoid colon. - Two 1 to 2 mm polyps in the sigmoid colon and at the splenic flexure, removed with a cold snare. Resected and retrieved. - Two bleeding colonic angiodysplastic lesions. Treated with a heater probe. - Rectal prolapse Recommendations : - Discharge patient to home. - Resume previous diet. - Continue present medications. - Await pathology results. - No repeat colonoscopy due to age. My findings are described in the full procedure note, which is enclosed. If I can be of further assistance, please feel free to contact me at . Sincerely, Frandy Herndon, 11/08/2022 12:53:49 PM This report has been signed electronically.
[2022-11-08 12:55] VITALS: BP 108/51; BP 160/35; PULSE 60; RESP 18; O2SAT 96
[2022-11-08 13:00] VITALS: BP 118/90; BP 160/35; PULSE 60; RESP 18; O2SAT 99
[2022-11-08 13:08] VITALS: BP 122/90; BP 160/35; PULSE 61; RESP 18; TEMP 36.6; O2SAT 100
[2022-11-08 13:32] VITALS: BP 160/35
== END 2022-11-08 13:41 | disposition home or self-care (01) ==
LOC: EN 11:14 → AC 11:15
PROVIDERS: PCP Internal Medicine; Referring Provider Internal Medicine; Visit Provider Internal Medicine Gastroenterology
PROC: 0DJD8ZZ Inspection of Lower Intestinal Tract, Via Natural or Artificial Opening Endoscopic (ICD-10-PCS; CPT 45378; principal; 2022-11-08 12:10)
DX: K55.21 Angiodysplasia of colon with hemorrhage (principal); D50.9 Iron deficiency anemia, unspecified; K44.9 Diaphragmatic hernia without obstruction or gangrene; K57.30 Diverticulosis of large intestine without perforation or abscess without bleeding; Z87.891 Personal history of nicotine dependence; K30 Functional dyspepsia; K64.9 Unspecified hemorrhoids; K62.3 Rectal prolapse; K27.4 Chronic or unspecified peptic ulcer, site unspecified, with hemorrhage; D12.3 Benign neoplasm of transverse colon
CPT/HCPCS: 45385; 43235; 45382; 82962; 88305; J7120; J2405

== ENCOUNTER → 2022-12-06 | Outpatient (CLI) | payer MEDICARE, OTHER, SELFPAY ==
[2022-12-06 13:17] LABS: Albumin, Serum 3.4 g/dL (3.2-5.0); BUN 58 mg/dL (7-18); BUN/Creat Ratio 26.5 RATIO (10-20); Calcium,Total 8.8 mg/dL (8.5-10.1); Chloride 109 mmol/L (98-107); Creatinine, Serum 2.19 mg/dL (0.55-1.02); EST Glomerular Filtration Rate 23 mL/min (>60); Est Glom Filt Rate - Afr Amer 28 mL/min (>60); Glucose 203 mg/dL (74-106); Phosphorus 3.6 mg/dL (2.5-4.9); Sodium Level 139 mmol/L (136-145)
[2022-12-06 13:25] LABS: Protein, Urine (Random) 44.3 mg/dL (<11.9); Protein:Creat Ratio 443 mg/g CRE (0-200)
== END | disposition home or self-care (01) ==
LOC: POLAB3 09:56
PROVIDERS: PCP Internal Medicine; Visit Provider Internal Medicine Nephrology
DX: E11.22 Type 2 diabetes mellitus with diabetic chronic kidney disease (principal); N18.4 Chronic kidney disease, stage 4 (severe)
CPT/HCPCS: 36415; 80069; 82570; 84156

== ENCOUNTER → 2022-12-06 | Outpatient (CLI) | payer MEDICARE, OTHER, SELFPAY | END | disposition home or self-care (01) | LOC: LAB.FUTURE 09:55 | PROVIDERS: PCP Internal Medicine; Visit Provider Internal Medicine Nephrology | DX: N17.9 Acute kidney failure, unspecified (principal); E11.22 Type 2 diabetes mellitus with diabetic chronic kidney disease ==

== ENCOUNTER → 2023-05-16 | Outpatient (CLI) | payer MEDICARE, OTHER, SELFPAY ==
[2023-05-16 12:18] LABS: Absolute Lymphocyte Count 0.92 X10^3/uL (0.83-4.51); Basophil# 0.09 X10^3/uL; Basophil% 2.3 % (0-1); Eosinophil# 0.05 X10^3/uL; Eosinophils% 1.3 % (0-5); Hematocrit 28.8 % (37-47); Hemoglobin 8.8 g/dL (12.0-15.0); Lymphocyte # 0.92 X10^3/ul (0.83-4.51); Mean Corp Hgb Conc 30.6 g/dL (32-36); Mean Corpuscular Hgb 27.2 pg (27.0-32.0); Mean Corpuscular Volume 89.2 fL (81-99); Monocyte# 0.66 X10^3/uL; Monocyte% 17.2 % (0-10); NRBC Flagged by Analyzer 0 % (0-5); Neutrophil # 2.04 X10^3/uL (2.7-7.7); Neutrophil % 53.1 % (47-70); POSITIVE COUNT YES; POSITIVE MORPHOLOGY YES; Platelet Count 71 K/mm3 (150-450); RBC Distribution Width CV 22.8 % (11.6-14.6); RBC Distribution Width SD 72.1 fl (35.1-43.9); Red Blood Count 3.23 M/mm3 (4.2-5.4); White Blood Count 3.8 K/mm3 (4.4-11.0)
[2023-05-16 12:22] LABS: Differential Indicated SCAN CRITERIA MET
[2023-05-16 12:50] LABS: ALB/GLOB Ratio 0.8 RATIO (0.9-2.4); AST(SGOT) 16 U/L (15-37); Alanine Aminotransfer ALT/SGPT 16 U/L (13-56); Albumin, Serum 3.4 g/dL (3.2-5.0); Alkaline Phosphatase 56 U/L (45-117); Anion Gap 12 (5-15); BUN 88 mg/dL (7-18); BUN/Creat Ratio 27.9 RATIO (10-20); Calcium,Total 8.7 mg/dL (8.5-10.1); Chloride 110 mmol/L (98-107); Cholesterol 131 mg/dL (200); Creatinine, Serum 3.15 mg/dL (0.55-1.02); EST Glomerular Filtration Rate 15 mL/min (>60); Est Glom Filt Rate - Afr Amer 18 mL/min (>60); Globulin 4.4 g/dL (2.2-4.2); Glucose 230 mg/dL (74-106); High Density Lipoprotein 44 mg/dL; Potassium 4.6 mmol/L (3.5-5.1); Protein, Total 7.8 g/dL (6.4-8.2); Sodium Level 141 mmol/L (136-145); Thyroid Stim Hormone (TSH) 0.63 uIU/mL (0.358-3.74); Triglycerides 88 mg/dL; Very Low Density Lipoprotein 18 mg/dL (5-40)
[2023-05-16 13:24] LABS: Differential Comment SCANNED; Hypochromasia 1+; Platelet Estimate MKD DEC (ADEQ); Poikilocytosis 1+
[2023-05-16 13:25] LABS: Anisocytosis 2+; Macrocytosis 1+; Microcytosis 1+; Ovalocyte 1+
[2023-05-16 13:39] LABS: Vitamin D,25 Hydroxy 54.2 ng/mL
== END | disposition home or self-care (01) ==
PROVIDERS: PCP Internal Medicine; Referring Provider Internal Medicine; Visit Provider Internal Medicine
DX: E03.9 Hypothyroidism, unspecified (principal); N18.4 Chronic kidney disease, stage 4 (severe); E11.9 Type 2 diabetes mellitus without complications; D63.1 Anemia in chronic kidney disease; I12.9 Hypertensive chronic kidney disease with stage 1 through stage 4 chronic kidney disease, or unspecified chronic kidney disease
CPT/HCPCS: 36415; 80053; 80061; 82306; 84443; 85025

== ENCOUNTER → 2023-06-21 | Outpatient (CLI) | payer MEDICARE, OTHER, SELFPAY ==
[2023-06-21 12:46] LABS: Albumin, Serum 3.6 g/dL (3.2-5.0); BUN 132 mg/dL (7-18); BUN/Creat Ratio 52.4 RATIO (10-20); Calcium,Total 9.2 mg/dL (8.5-10.1); Chloride 106 mmol/L (98-107); Creatinine, Serum 2.52 mg/dL (0.55-1.02); EST Glomerular Filtration Rate 20 mL/min (>60); Est Glom Filt Rate - Afr Amer 24 mL/min (>60); Glucose 195 mg/dL (74-106); Phosphorus 4.2 mg/dL (2.5-4.9); Potassium 4.2 mmol/L (3.5-5.1); Sodium Level 136 mmol/L (136-145)
== END | disposition home or self-care (01) ==
LOC: LAB 10:52
PROVIDERS: PCP Internal Medicine; Referring Provider Internal Medicine Nephrology; Visit Provider Internal Medicine Nephrology
DX: N18.32 Chronic kidney disease, stage 3b (principal); E11.22 Type 2 diabetes mellitus with diabetic chronic kidney disease
CPT/HCPCS: 36415; 80069

== ENCOUNTER → 2023-06-28 | Outpatient (CLI) | payer MEDICARE, OTHER, SELFPAY ==
[2023-06-28 12:25] LABS: Albumin, Serum 3.3 g/dL (3.2-5.0); BUN 89 mg/dL (7-18); BUN/Creat Ratio 43.8 RATIO (10-20); Calcium,Total 8.6 mg/dL (8.5-10.1); Chloride 108 mmol/L (98-107); Creatinine, Serum 2.03 mg/dL (0.55-1.02); EST Glomerular Filtration Rate 25 mL/min (>60); Est Glom Filt Rate - Afr Amer 30 mL/min (>60); Glucose 220 mg/dL (74-106); Phosphorus 2.7 mg/dL (2.5-4.9); Potassium 4.3 mmol/L (3.5-5.1); Sodium Level 138 mmol/L (136-145)
[2023-06-28 13:10] LABS: PTHIN 65.9 pg/mL (18.4-80.1)
== END | disposition home or self-care (01) ==
LOC: POLAB3 11:29
PROVIDERS: PCP Internal Medicine; Visit Provider Internal Medicine Nephrology
DX: N17.9 Acute kidney failure, unspecified (principal); N18.32 Chronic kidney disease, stage 3b
CPT/HCPCS: 36415; 80069; 83970